=== PATIENT | male | born 1960 | race Caucasian/White ===

== ENCOUNTER 2023-05-26 15:04 | Outpatient (OUT) | payer OTHER, SELFPAY ==
[2023-05-26 17:14] LABS: Prostate Specific Antigen Dx <0.13 ng/mL (<=4.00)
== END 2023-05-26 15:05 | disposition home or self-care (01) ==
LOC: LAB 15:04
PROVIDERS: PCP Family Medicine; Visit Provider Urology
DX: C61 Malignant neoplasm of prostate (principal)
CPT/HCPCS: 36415; 84153

== ENCOUNTER 2023-11-16 13:59 | Outpatient (OUT) | payer OTHER, SELFPAY | END 2023-11-16 14:00 | disposition home or self-care (01) | LOC: PST 14:00 | PROVIDERS: PCP Family Medicine; Visit Provider Surgery | DX: Z86.010 Personal history of colon polyps (principal) ==

== ENCOUNTER 2023-11-24 08:18 | Day surgery (SDC) | payer OTHER, SELFPAY ==
--- OUTSIDE RECORDS SUMMARY | 2023-11-24 08:30 | XMS_ITS | CCD ---
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 Role Phone LETI BULLARD Primary Care Physician MD Harshad Jane Attending Provider [phone] MD Leti Bullard Primary Care Provider OFELIA TIRADO MD Attending Unavailable JUAN MIGUEL, DR LANDEROS Attending Unavailable JUAN MIGUEL, DR LANDEROS Admitting Unavailable JUAN MIGUEL, DR LANDEROS Primary Care Unavailable JUAN MIGUEL, DR LANDEROS Consulting Unavailable AUBRIE STAUFFER Admitting Unavailable LUEAUBRIE Consulting Unavailable AUBRIE STAUFFER M Attending Unavailable JUAN MIGUEL, DR LANDEROS Primary Care Unavailable MD Leti Bullard Primary Care Provider MD Leti Bullard Attending Provider [phone] LETI BULLARD Attending Unavailable [place] Leti WESTBROOK Primary Care Provider [phone] MD Leti Bullard Primary Care Provider [phone] MD Aubrie Stauffer Attending Provider [phone] Leti Bullard Primary Care Unavailable Leti Bullard Attending Unavailable Leti Bullard Admitting Unavailable Lue, Aubrie M Admitting Unavailable Lue, Aubrie M Attending Unavailable Leti Bullard Primary Care Unavailable Lue, Aubrie M. Admitting Unavailable Lue, Aubrie M. Attending Unavailable Lue, Aubrie M. Referring Unavailable Lue, Aubrie M. Referring Unavailable Lue, Aubrie M. Admitting Unavailable Lue, Aubrie M. Attending Unavailable Lue, Aubrie M. Attending Unavailable Lue, Aubrie M. Attending Aubrie Cast Attending Harshad Acuna Attending Aubrie Cast Attending Aubrie Cast Referring Aubrie Cast Admitting Aubrie Csat Attending Unavailable Medications Current Medications Medication Drug Class(es) Dates Sig (Normalized) Sig (Original) acetaminophen 650 mg oral tablet (3 sources) Start: 12-23-2022 take 650 mg by mouth every four hours as needed for pain, then take 4000 mg by mouth once daily as needed for pain acetaminophen 650 mg, Oral, q4hr, PRN Pain/Fever, Mild-moderate pain. Not to exceed 4000 mg acetaminophen per day, Refills(s) 0 Start Date: 12/23/22 Status: Ordered Celebrate Multivitamin (4 sources) Start: 12-02-2022 Celebrate Multivitamin 1 tab(s), Chewed, Daily, Prophylaxis Start Date: 12/02/22 Status: Ordered docusate sodium 100 mg oral capsule (2 sources) Start: 12-23-2022 take 1 capsule by mouth twice daily Colace 100 mg Cap 100 mg = 1 cap(s), Oral, BID, Hold for loose stools > 2/day, # 60 cap(s), Refills(s) 0, Pharmacy: [id number], 175.3, cm, 12/22/22 22:07:00 EDT, Height/Length Dosing, 80.9, kg, 12/22/22 22:07:00 EDT, Weight Dosing Start Date: 12/23/22 Status: Ordered Fish Oils (4 sources) Start: 12-02-2022 take 1 capsule by mouth once daily Fish Oil 1000 mg oral capsule 1,000 mg = 1 cap(s), Oral, Daily, Refills(s) 0, Prophylaxis Start Date: 12/02/22 Status: Ordered Multivitamin preparation (3 sources) Start: 09-15-2022 take 1 tablet by mouth once daily in the morning Multivitamin Active 1 TAB PO Every morning September 15, 2022 1:00am Start: 09-15-2022 take 1 tablet by sj th once daily in the morning Multivitamin Active 1 TAB PO Every morning September 15, 2022 12:00am niacin 100 mg oral tablet (7 sources) Nicotinic Acid Start: 12-02-2022 take 1 tablet by mouth once daily niacin 100 mg oral tablet 100 mg = 1 tab(s), Oral, Daily, Prophylaxis Start Date: 12/02/22 Status: Ordered Start: 09-15-2022 take 50 mg by mouth once daily in the morning Niacin Active 50 MG PO Every morning September 15, 2022 12:00am [place] 1-Agd-Emi-Fish Oil (Fish Oil) 1,000 mg (120 mg-180 mg) Capsule (3 sources) Start: 09-15-2022 take 2 capsules by mouth once daily in the morning [place] 7-Ipq-Tpw-Fish Oil (Fish Oil) 1,000 mg (120 mg-180 mg) Capsule Active 2 CAP PO Every morning September 15, 2022 1:00am Start: 09-15-2022 take 2 capsules by m outh once daily in the morning [place] 4-Jkc-Kaf-Fish Oil (Fish Oil) 1,000 mg (120 mg-180 mg) Capsule Active 2 CAP PO Every morning September 15, 2022 12:00am sod sulf-pot chloride-mag sulf 1.479-0.188- 0.225 gram tablet (1 source) Start: 10-20-2023 sod sulf-pot chloride-mag sulf 1.479-0.188- 0.225 gram tablet Indications: History of colon polyps Please see instructional sheet given by physicians office. 24 tablet 0 10/20/2023 Active tadalafil 20 mg oral tablet (7 sources) Phosphodiesterase 5 Inhibitor Start: 06-14-2023 take 1 tablet by mouth once daily as needed tadalafiL (CIALIS) 20 mg tablet Take 1 tablet (20 mg total) by mouth daily as needed for erectile dysfunction. 0 06/14/2023 Active Start: 06-04-2023 tadalafil 20 m g Tab 20 mg = 1 tab(s), Oral, As Directed, Take 1 tab by mouth 1-2 hours prior to sexual activity. Do NOT exceed 20 mg in 24 hours., # 30 tab(s), Refills(s) 3, Pharmacy: [id number], 175, cm, 02/26/23 8:38:00 EDT, Height/Length Dosing, 82.9, kg, ... Start Date: 06/04/23 Status: Ordered Start: 02-26-2023 tadalafil 10 m g Tab 10 mg = 1 tab(s), Oral, As Directed, PRN for erectile dysfunction, 1 tablet as needed 1-2hr prior to intercourse. Do not exceed 20mg per day, # 30 tab(s), Refills(s) 6, Pharmacy: [id number], 175, cm, 02/26/23 8:38:00 EDT, Height/Length Dosin... Start Date: 02/26/23 Status: Ordered Start: 12-30-2022 End: 12-26-2023 take 1 tablet by mouth once daily tadalafil 5 mg oral tablet 5 mg = 1 tab(s), Oral, Daily, X 90 day(s), # 90 tab(s), Refills(s) 3, Pharmacy: [facility], 175, cm, 12/30/22 10:12:00 EDT, Height/Length Dosing, 84, kg, 12/30/22 10:12:00 EDT, Weight Dosing Start Date: 12/31/22 Stop Date: 12/26/23 Status: Ordered tamsulosin hydrochloride 0.4 mg oral capsule (8 sources) alpha-Adrenergic Tai Start: 11-05-2021 End: 10-20-2023 take 0.4 mg by mouth once daily in the evening Tamsulosin Active 0.4 MG PO Every evening September 15, 2022 12:00am Problems Problem Classification Problem Date Documented Date Episodic/Chronic Blindness and vision defects (7 sources) 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 Cancer of prostate (12 sources) Malignant neoplasm of prostate; Translations: [Malignant tumor of prostate] Onset: 10-02-2022 Chronic Cancer of prostate (2 sources) Personal history of malignant neoplasm of prostate; Translations: [History of malignant neoplasm of prostate] Onset: 2023 Episodic Disorders of lipid metabolism (8 sources) Hyperlipidemia; Translations: [Hyperlipidemia, unspecified] Onset: 08-05-2022 01-31-2020 Chronic Genitourinary symptoms and ill-defined conditions (7 sources) Blood in urine 01-31-2020 Episodic Hyperplasia of prostate (12 sources) Benign prostatic hypertrophy with outflow obstruction; Translations: [Benign prostatic hyperplasia with lower urinary tract symptoms] Onset: 02-23-2022 Chronic Inflammatory conditions of male genital organs (7 sources) Prostatitis 01-31-2020 Episodic Other and unspecified benign neoplasm (1 source) History of polyp of colon; Translations: [Personal history of colonic polyps] 10-20-2023 Episodic Other diseases of kidney and ureters (1 source) Urinary tract obstruction; Translations: [Other obstructive and reflux uropathy] Onset: 02-23-2022 Episodic Other male genital disorders (2 sources) Secondary erectile dysfunction; Translations: [Erectile dysfunction following radical prostatectomy] Onset: 02-26-2023 Chronic Other male genital disorders (3 sources) Erectile dysfunction following radical prostatectomy 12-31-2022 Chronic Other nutritional; endocrine; and metabolic disorders (7 sources) Body mass index 25-29 - overweight 02-12-2020 Episodic Other screening for suspected conditions (not mental disorders or infectious disease) (10 sources) Raised prostate specific antigen; Translations: [Elevated prostate specific antigen [PSA]] Onset: 02-23-2022 Episodic Unclassified (1 source) Encounter for general adult medical examination without abnormal findings; Translations: [Encounter for general adult medical examination without abnormal findings] Onset: 07-31-2023 Results Test Name Value Interpretation Reference Range Facility [facility] 11-22-2023 Lab Reports [id number] Normal [facility] PSA Total (Not a Screen)on 0 11-19-2023 PSA Total (Not a Screen) < 0.008 Normal 0.000-4.00 0 [facility] Comment on above: Result Comment: Karmen nichols tumor marker results determined by assays using different manufacturers or methods may not be comparable. 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 PERFORMED BY: [place] [address] PATHOLOGIST HYPERBARIC TECHNOLOGIST TAHMINA BECERRA M.D. Performed By: #### P SATOTAL #### [address] Prostate specific Ag [Mass/v olume] in Serum or PlasmaOrdered By: Aubrie Stauffer on 11-19-2023 Prostate specific Ag [Mass/Vol] ng/mL 0.000-4.00 0 [facility] Comment on above: Serial tumor marker results determined by assays using different manufacturers or methods may not be comparable.[facility] joinery factory worker and method:[employer] DXI, CHEMILUMINESCENT IMMUNOASSAY. Alanine aminotransferase [En zymatic activity/volume] in Serum or PlasmaOrdered By: Leti Bullard on 07-31-2023 ALT [Catalytic activity/Vol] 12 U/L 7-52 [facility] Albumin [Mass/volume] in Ser um or Plasma by Bromocresol green (BCG) dye binding methoOrdered By: Leti Torresa on 07-31-2023 Albumin BCG dye [Mass/Vol] 4.2 g/dL 3.5-5.7 [facility] Alkaline phosphatase [Enzyma tic activity/volume] in Serum or PlasmaOrdered By: Leti Torresa on 07-31-2023 ALP [Catalytic activity/Vol] 55 U/L 34-104 [facility] Aspartate aminotransferase [ Enzymatic activity/volume] in Serum or PlasmaOrdered By: Leti Torresa on 07-31-2023 AST [Catalytic activity/Vol] 15 U/L 13-39 [facility] Basophils Auto (Bld) [#/Vol] Ordered By: Leti Torresa on 07-31-2023 Basophils (Bld) [#/Vol] 0.1 10*3/uL 0.0-0.2 [facility] Basophils/100 WBC Auto (Bld) Ordered By: Leti Torresa on 07-31-2023 Basophils/100 WBC (Bld) 1.2 % . [facility] Bilirubin.total [Mass/volume ] in Serum or PlasmaOrdered By: Leti Torresa on 07-31-2023 Bilirubin [Mass/Vol] 0.9 mg/dL 0.3-1.0 [facility] Calcium [Mass/volume] in Ser um or PlasmaOrdered By: Leti Torresa on 07-31-2023 Calcium [Mass/Vol] 9.5 mg/dL 8.6-10.3 [facility] Carbon dioxide, total [Moles /volume] in Serum or PlasmaOrdered By: Leti Bullard on 07-31-2023 CO2 [Moles/Vol] 32.7 mmol/L 21.0-31.0 [facility] Chloride [Moles/volume] in S leandra or PlasmaOrdered By: Leti Bullard on 07-31-2023 Chloride [Moles/Vol] 105 mmol/L 98-107 [facility] Cholesterol [Mass/volume] in Serum or PlasmaOrdered By: Leti Bullard on 07-31-2023 Cholesterol [Mass/Vol] 229 mg/dL 140-200 [facility] Comment on above: Chol less than 200 m g/dl low riskChol 201-239 mg/dl borderline riskChol 240 mg/dl and greater high risk Cholesterol in LDL Calc [Mas s/Vol]Ordered By: Leti Bullard on 07-31-2023 Cholesterol in LDL [Mass/Vol] 157 mg/dL 0-100 [facility] Comment on above: LDL ATP III CLASSIFI CATIONLDL less than 100 mg/dL OptimalLDL 100-129 mg/dL Near or above optimalLDL 130-159 mg/dL Borderline highLDL 160-189 mg/dL HighLDL greater than 189 mg/dL Very high Cholesterol in VLDL Calc [Ma ss/Vol]Ordered By: Leti Bullard on 07-31-2023 Cholesterol in VLDL [Mass/Vol] 20 mg/dL [facility] Complete Blood Count Auto Di ffon 07-31-2023 Basophils (Bld) [#/Vol] 0.1 10*3/uL Normal 0.0-0.2 [facility] Comment on above: Order Comment: FASTI NG Result Comment: PERF ORMED BY: [place] [address] PATHOLOGIST HYPERBARIC TECHNOLOGIST TAHMINA BECERRA M.D. Performed By: #### L IPID, CMP, CBC, PSATF #### [facility] [address] [place] [address] [place] Basophils/100 WBC (Bld) 1.2 % Normal . [facility] Comment on above: Order Comment: FASTI NG Performed By: #### L IPID, CMP, CBC, PSATF #### [facility] [address] [place] [address] [place] Eosinophils (Bld) [#/Vol] 0.3 10*3/uL Normal 0.0-0.45 [facility] Comment on above: Order Comment: FASTI NG Performed By: #### L IPID, CMP, CBC, PSATF #### [address] Eosinophils/100 WBC (Bld) 6.5 % Normal . [facility] Comment on above: Order Comment: FASTI NG Performed By: #### L IPID, CMP, CBC, PSATF #### [address] Erythrocyte distribution width (RBC) [Ratio] 13.9 % Normal 12.0-14.8 [facility] Comment on above: Order Comment: FASTI NG Performed By: #### L IPID, CMP, CBC, PSATF #### [address] Hematocrit (Bld) [Volume fraction] 41.3 % Normal 38.8-50.0 [facility] Comment on above: Order Comment: FASTI NG Performed By: #### L IPID, CMP, CBC, PSATF #### [address] Hemoglobin (Bld) [Mass/Vol] 13.8 g/dL Normal 13.0-17.0 [facility] Comment on above: Order Comment: FASTI NG Performed By: #### L IPID, CMP, CBC, PSATF #### [address] Lymphocytes (Bld) [#/Vol] 1.4 10*3/uL Normal 1.00-4.8 [facility] Comment on above: Order Comment: FASTI NG Performed By: #### L IPID, CMP, CBC, PSATF #### [address] Lymphocytes/100 WBC (Bld) 28.4 % Normal . [facility] Comment on above: Order Comment: FASTI NG Performed By: #### L IPID, CMP, CBC, PSATF #### [address] MCH (RBC) [Entitic mass] 30.4 pg Normal 27.5-35.2 [facility] Comment on above: Order Comment: FASTI NG Performed By: #### L IPID, CMP, CBC, PSATF #### [address] MCV (RBC) [Entitic vol] 90.7 fL Normal 83.5-101 [facility] Comment on above: Order Comment: FASTI NG Performed By: #### L IPID, CMP, CBC, PSATF #### [address] Mean Corpuscular HGB Conc 33.5 g/dL Normal 32.5-35.6 [facility] Comment on above: Order Comment: FASTI NG Performed By: #### L IPID, CMP, CBC, PSATF #### [address] Monocytes (Bld) [#/Vol] 0.4 10*3/uL Normal 0.0-0.8 [facility] Comment on above: Order Comment: FASTI NG Performed By: #### L IPID, CMP, CBC, PSATF #### [address] Monocytes/100 WBC (Bld) 7.8 % Normal . [facility] Comment on above: Order Comment: FASTI NG Performed By: #### L IPID, CMP, CBC, PSATF #### [address] Neutrophils (Bld) [#/Vol] 2.7 10*3/uL Normal 1.8-7.7 [facility] Comment on above: Order Comment: FASTI NG Performed By: #### L IPID, CMP, CBC, PSATF #### [address] Neutrophils/100 WBC (Bld) 56.1 % Normal . [facility] Comment on above: Order Comment: FASTI NG Performed By: #### L IPID, CMP, CBC, PSATF #### [address] NRBC% 0.0 /100{WBC} Normal 0-0.5 [facility] Comment on above: Order Comment: FASTI NG Performed By: #### L IPID, CMP, CBC, PSATF #### [facility] [address] [place] [address] Platelet mean volume (Bld) [Entitic vol] 7.4 fL Normal 6.6-10.1 [facility] Comment on above: Order Comment: FASTI NG Performed By: #### L IPID, CMP, CBC, PSATF #### [facility] [address] [place] [address] Platelets (Bld) [#/Vol] 259 10*3/uL Normal 150-450 [facility] Comment on above: Order Comment: FASTI NG Performed By: #### L IPID, CMP, CBC, PSATF #### [address] RBC (Bld) [#/Vol] 4.55 10*6/uL Normal 3.90-5.60 [facility] Comment on above: Order Comment: FASTI NG Performed By: #### L IPID, CMP, CBC, PSATF #### [address] WBC (Bld) [#/Vol] 4.8 10*3/uL Normal 4.1-10.5 [facility] Comment on above: Order Comment: FASTI NG Performed By: #### L IPID, CMP, CBC, PSATF #### [facility] [address] [place] [address] Comprehensive Metabolic Pane corby 07-31-2023 Albumin [Mass/Vol] 4.2 g/dL Normal 3.5-5.7 [facility] Comment on above: Order Comment: FASTI NG Performed By: #### L IPID, CMP, CBC, PSATF #### [facility] [address] [place] [address] Albumin/Globulin [Mass ratio] 1.8 {ratio} Normal [facility] Comment on above: Order Comment: FASTI NG Performed By: #### L IPID, CMP, CBC, PSATF #### [facility] [address] ALP [Catalytic activity/Vol] 55 U/L Normal 34-104 [facility] Comment on above: Order Comment: FASTI NG Performed By: #### L IPID, CMP, CBC, PSATF #### [facility] [address] ALT [Catalytic activity/Vol] 12 U/L Normal 7-52 [facility] Comment on above: Order Comment: FASTI NG Performed By: #### L IPID, CMP, CBC, PSATF #### [facility] [address] [place] [address] Anion gap [Moles/Vol] 6.7 mmol/L Normal 6.0-15.0 [facility] Comment on above: Order Comment: FASTI NG Performed By: #### L IPID, CMP, CBC, PSATF #### [address] AST [Catalytic activity/Vol] 15 U/L Normal 13-39 [facility] Comment on above: Order Comment: FASTI NG Performed By: #### L IPID, CMP, CBC, PSATF #### [address] Bilirubin [Mass/Vol] 0.9 mg/dL Normal 0.3-1.0 [facility] Comment on above: Order Comment: FASTI NG Performed By: #### L IPID, CMP, CBC, PSATF #### [facility] [address] [place] [address] Calcium [Mass/Vol] 9.5 mg/dL Normal 8.6-10.3 [facility] Comment on above: Order Comment: FASTI NG Performed By: #### L IPID, CMP, CBC, PSATF #### [facility] [address] [place] [address] Chloride [Moles/Vol] 105 mmol/L Normal 98-107 [facility] Comment on above: Order Comment: FASTI NG Performed By: #### L IPID, CMP, CBC, PSATF #### [facility] [address] CO2 [Moles/Vol] 32.7 mmol/L High 21.0-31.0 [facility] Comment on above: Order Comment: FASTI NG Performed By: #### L IPID, CMP, CBC, PSATF #### [facility] [address] Creatinine [Mass/Vol] 1.07 mg/dL Normal 0.70-1.30 [facility] Comment on above: Order Comment: FASTI NG Performed By: #### L IPID, CMP, CBC, PSATF #### [address] GFR/1.73 sq M.predicted MDRD (S/P/Bld) [Vol rate/Area] mL/min/{1.73_m2} [facility] Comment on above: Order Comment: FASTI NG Performed By: #### L IPID, CMP, CBC, PSATF #### [facility] [address] Globulin (S) [Mass/Vol] 2.4 g/dL [facility] Comment on above: Order Comment: FASTI NG Performed By: #### L IPID, CMP, CBC, PSATF #### [address] Glucose [Mass/Vol] 89 mg/dL Normal 70-100 [facility] Comment on above: Order Comment: FASTI NG Result Comment: [place] Glucose Reference Range is dependent on time and content of last meal. Glucose of more than 200 mg/dL in a nonstressed, ambulatory subject supports the diagnosis of Diabetes Mellitus. ADA recommended reference range Performed By: #### L IPID, CMP, CBC, PSATF #### [address] Potassium [Moles/Vol] 5.4 mmol/L High 3.5-5.1 [facility] Comment on above: Order Comment: FASTI NG Performed By: #### L IPID, CMP, CBC, PSATF #### [facility] [address] Protein [Mass/Vol] 6.6 g/dL Normal 6.4-8.9 [facility] Comment on above: Order Comment: FASTI NG Performed By: #### L IPID, CMP, CBC, PSATF #### [facility] [address] Sodium [Moles/Vol] 139 mmol/L Normal 136-145 [facility] Comment on above: Order Comment: FASTI NG Performed By: #### L IPID, CMP, CBC, PSATF #### [facility] [address] Urea nitrogen [Mass/Vol] 17 mg/dL Normal 7-25 [facility] Comment on above: Order Comment: FASTI NG Performed By: #### L IPID, CMP, CBC, PSATF #### [facility] [address] Creatinine [Mass/volume] in Serum or PlasmaOrdered By: Leti Bullard on 07-31-2023 Creatinine [Mass/Vol] 1.07 mg/dL 0.70-1.30 [facility] Eosinophils Auto (Bld) [#/Vo l]Ordered By: Leti Torresa on 07-31-2023 Eosinophils (Bld) [#/Vol] 0.3 10*3/uL 0.0-0.45 [facility] Eosinophils/100 WBC Auto (Bl d)Ordered By: Leti Descanso on 07-31-2023 Eosinophils/100 WBC (Bld) 6.5 % . [facility] Erythrocyte distribution wid th Auto (RBC) [Ratio]Ordered By: Leti Bullard on 07-31-2023 Erythrocyte distribution width (RBC) [Ratio] 13.9 % 12.0-14.8 [facility] Globulin Calc (S) [Mass/Vol] Ordered By: Leti Bullard on 07-31-2023 Globulin (S) [Mass/Vol] 2.4 g/dL [facility] Glucose [Mass/volume] in Ser um or PlasmaOrdered By: Leti Bullard on 07-31-2023 Glucose [Mass/Vol] 89 mg/dL 70-100 [facility] Comment on above: ADA recommended refe rence rangeRandom Glucose Reference Range is dependent on time and content of last meal. Glucose of more than 200 mg/dL in a nonstressed, ambulatory subject supports the diagnosis of Diabetes Mellitus. Hematocrit Auto (Bld) [Volum e fraction]Ordered By: Leti Bullard on 07-31-2023 Hematocrit (Bld) [Volume fraction] 41.3 % 38.8-50.0 [facility] Hemoglobin [Mass/volume] in BloodOrdered By: Leti Bullard on 07-31-2023 Hemoglobin (Bld) [Mass/Vol] 13.8 g/dL 13.0-17.0 [facility] Leukocytes [#/volume] correc matthieu for nucleated erythrocytes in Blood by Automated counOrdered By: Leti Bullard on 07-31-2023 WBC corrected for nucl RBC Auto (Bld) [#/Vol] 4.8 10*3/uL 4.1-10.5 [facility] Lipid Panelon 07-31-2023 Cholesterol [Mass/Vol] 229 mg/dL High 140-200 [facility] Comment on above: Order Comment: FASTI NG Result Comment: Chol less than 200 mg/dl low risk Chol 201-239 mg/dl borderline risk Chol 240 mg/dl and greater high risk Performed By: #### L IPID, CMP, CBC, PSATF #### [facility] [address] [place] [id number] [place] Cholesterol in HDL [Mass/Vol] 51 mg/dL Normal 23-92 [facility] Comment on above: Order Comment: FASTI NG Result Comment: HDL CHOL ATP-III CLASSIFICATION Cardiovascular Risk HDL > or equal to 60 mg/dL LOW HDL < 40 mg/dL HIGH Performed By: #### L IPID, CMP, CBC, PSATF #### [facility] [address] [place] [address] [facility] Cholesterol.total/Chol esterol in HDL [Mass ratio] 4.5 {ratio} Normal <5.0 [facility] Comment on above: Order Comment: FASTI NG Result Comment: PERF ORMED BY: [place] [address] PATHOLOGIST HYPERBARIC TECHNOLOGIST TAHMINA BECERRA M.D. Performed By: #### L IPID, CMP, CBC, PSATF #### [address] LDL Cholesterol,Calculated 157 mg/dL High 0-100 [facility] Comment on above: Order Comment: FASTI NG Result Comment: LDL ATP III CLASSIFICATION LDL less than 100 mg/dL Optimal LDL 100-129 mg/dL Near or above optimal LDL 130-159 mg/dL Borderline high LDL 160-189 mg/dL High LDL greater than 189 mg/dL Very high Performed By: #### L IPID, CMP, CBC, PSATF #### [address] Triglyceride w/Reflex 103 mg/dL Normal 0-149 [facility] Comment on above: Order Comment: FASTI NG Result Comment: TRIG ATP III CLASSIFICATION TRIG less than 150 mg/dL Normal TRIG 150-199 mg/dL Borderline high TRIG 200-500 mg/dL High TRIG greater than 500 mg/dL Very high Standard traceable to the Center for Disease Conrtrol and Prevention (CDC) test method. Performed By: #### L IPID, CMP, CBC, PSATF #### [address] VLDL CHOLESTEROL 20 mg/dL Normal [facility] Comment on above: Order Comment: FASTI NG Performed By: #### L IPID, CMP, CBC, PSATF #### [facility] [address] [place] [address] Lymphocytes Auto (Bld) [#/Vo l]Ordered By: Leti Bullard on 07-31-2023 Lymphocytes (Bld) [#/Vol] 1.4 10*3/uL 1.00-4.8 [facility] [facility] Lymphocytes/100 WBC Auto (Bl d)Ordered By: Leti Descanso on 07-31-2023 Lymphocytes/100 WBC (Bld) 28.4 % . [facility] MCH Auto (RBC) [Entitic mass ]Ordered By: Leti Bullard on 07-31-2023 MCH (RBC) [Entitic mass] 30.4 pg 27.5-35.2 [facility] MCHC Auto (RBC) [Mass/Vol]Or dered By: Leti Bullard on 07-31-2023 MCHC (RBC) [Mass/Vol] 33.5 g/dL 32.5-35.6 [facility] MCV Auto (RBC) [Entitic vol] Ordered By: Leti Bullard on 07-31-2023 MCV (RBC) [Entitic vol] 90.7 fL 83.5-101 [facility] Monocytes Auto (Bld) [#/Vol] Ordered By: Leti Bullard on 07-31-2023 Monocytes (Bld) [#/Vol] 0.4 10*3/uL 0.0-0.8 [facility] Monocytes/100 WBC Auto (Bld) Ordered By: Leti Bullard on 07-31-2023 Monocytes/100 WBC (Bld) 7.8 % . [facility] Neutrophils Auto (Bld) [#/Vo l]Ordered By: Leti Bullard on 07-31-2023 Neutrophils (Bld) [#/Vol] 2.7 10*3/uL 1.8-7.7 [facility] Neutrophils/100 WBC Auto (Bl d)Ordered By: Leti Bullard on 07-31-2023 Neutrophils/100 WBC (Bld) 56.1 % . [facility] No Panel InformationOrdered By: Leti Bullard on 07-31-2023 Estimated GFR (CKD-EPI) > 60.0 mL/Min [facility] Creatinine Clearance (Chem N/A [facility] Nucleated erythrocytes [Pres ence] in Blood by Automated countOrdered By: Leti Bullard on 07-31-2023 Nucleated RBC Auto Ql (Bld) 0.0 /100{WBC} 0-0.5 [facility] PSA Diagnostic (Total Free)o n 07-31-2023 Prostate Spec Ag, Free < 0.005 [facility] on above: Order Comment: FASTI NG Performed By: #### L IPID, CMP, CBC, PSATF #### [facility] [address] [place] [address] PSA Total (Not a Screen) < 0.008 Normal 0.000-4.00 0 [facility] Comment on above: Order Comment: FASTI NG Performed By: #### L IPID, CMP, CBC, PSATF #### [facility] [address] PSA,FREE% Not performed Normal [facility] Comment on above: Order Comment: FASTI NG Result Comment: PERF ORMED BY: [place] [address] PATHOLOGIST HYPERBARIC TECHNOLOGIST TAHMINA BECERRA M.D. Performed By: #### L IPID, CMP, CBC, PSATF #### [facility] [address] Platelet mean volume Auto (B ld) [Entitic vol]Ordered By: Leti Descanso on 07-31-2023 Platelet mean volume (Bld) [Entitic vol] 7.4 fL 6.6-10.1 [facility] Platelets Auto (Bld) [#/Vol] Ordered By: Leti Juan Miguel on 07-31-2023 Platelets (Bld) [#/Vol] 259 10*3/uL 150-450 [facility] Potassium [Moles/volume] in Serum or PlasmaOrdered By: Rugen Juan Miguel on 07-31-2023 Potassium [Moles/Vol] 5.4 mmol/L 3.5-5.1 [facility] Prostate Specific Ag Free [M ass/volume] in Serum or PlasmaOrdered By: Rugen Juan Miguel on 07-31-2023 Free PSA [Mass/Vol] < 0.005 ng/mL [facility] Prostate specific Ag [Mass/v olume] in Serum or PlasmaOrdered By: Rugen Descanso on 07-31-2023 Prostate specific Ag [Mass/Vol] ng/mL 0.000-4.00 0 [facility] Protein [Mass/volume] in Ser um or PlasmaOrdered By: Rugen Descanso on 07-31-2023 Protein [Mass/Vol] 6.6 g/dL 6.4-8.9 [facility] RBC Auto (Bld) [#/Vol]Ordere d By: Leti Bullard on 07-31-2023 RBC (Bld) [#/Vol] 4.55 10*6/uL 3.90-5.60 [facility] Serum or plasma albumin/glob ulin mass ratioOrdered By: Leti Bullard on 07-31-2023 Albumin/Globulin [Mass ratio] 1.8 {ratio} [facility] Serum or plasma anion gap de terminationOrdered By: Leti Bullard on 07-31-2023 Anion gap [Moles/Vol] 6.7 mmol/L 6.0-15.0 [facility] Serum or plasma free prostat e specific antigen (PSA)/total PSA ratioOrdered By: Leti Bullard on 07-31-2023 Free PSA/Total PSA [Mass fraction] TNP [facility] Comment on above: Test not performed Serum or plasma high density lipoprotein (HDL) cholesterol measurementOrdered By: Leti Bullard on 07-31-2023 Cholesterol in HDL [Mass/Vol] 51 mg/dL 23-92 [facility] Comment on above: HDL CHOL ATP-III CLA SSIFICATION Cardiovascular RiskHDL > or equal to 60 mg/dL LOWHDL < 40 mg/dL HIGH Serum or plasma total choles terol/high density lipoprotein (HDL) cholesterol mass ratOrdered By: Leti Bullard on 07-31-2023 Cholesterol.total/Chol esterol in HDL [Mass ratio] 4.5 {ratio} <5.0 [facility] Sodium [Moles/volume] in Ser um or PlasmaOrdered By: Leti Bullard on 07-31-2023 Sodium [Moles/Vol] 139 mmol/L 136-145 [facility] Triglyceride [Mass/volume] i n Serum or PlasmaOrdered By: Leti Bullard on 07-31-2023 Triglyceride [Mass/Vol] 103 mg/dL 0-149 [facility] Comment on above: TRIG ATP III CLASSIF ICATIONTRIG less than 150 mg/dL NormalTRIG 150-199 mg/dL Borderline highTRIG 200-500 mg/dL High TRIG greater than 500 mg/dL Very highStandard traceable to the Center for Disease Conrtrol and Prevention (CDC) test method. Urea nitrogen [Mass/volume] in Serum or PlasmaOrdered By: Leti Bullard on 07-31-2023 Urea nitrogen [Mass/Vol] 17 mg/dL 04-27 [facility] WBC Auto (Bld) [#/Vol]Ordere d By: Leti Bullard on 07-31-2023 WBC (Bld) [#/Vol] 4.8 10*3/uL 4.1-10.5 [facility] Patient Educationon 06-04-20 Patient Education Urology Erectile Dysfunction Erectile dysfunction (ED) is the inability to get or keep an erection in order to have sexual intercourse. ED is considered a symptom of an underlying disorder and is not considered a disease. ED may include: ? Inability to get an erection. ? Lack of enough hardness of the erection to allow penetration. ? Loss of erection before sex is finished. What are the causes? This condition may be caused by: ? Physical causes, such as: ? Artery problems. This may include heart disease, high blood pressure, atherosclerosis, and diabetes. ? Hormonal problems, such as low testosterone. ? Obesity. ? Nerve problems. This may include back or pelvic injuries, multiple sclerosis, Parkinson's disease, spinal cord injury, and stroke. ? Certain medicines, such as: ? Pain relievers. ? Antidepressants. ? Blood pressure medicines and water pills (diuretics). ? Cancer medicines. ? Antihistamines. ? Muscle relaxants. ? Lifestyle factors, such as: ? Use of drugs such as marijuana, cocaine, or opioids. ? Excessive use of alcohol. ? Smoking. ? Lack of physical activity or exercise. ? Psychological causes, such as: ? Anxiety or stress. ? Sadness or depression. ? Exhaustion. ? Fear about sexual performance. ? Guilt. What are the signs or symptoms? Symptoms of this condition include: ? Inability to get an erection. ? Lack of enough hardness of the erection to allow penetration. ? Loss of the erection before sex is finished. ? Sometimes having normal erections, but with frequent unsatisfactory episodes. ? Low sexual satisfaction in either partner due to erection problems. ? A curved penis occurring with erection. The curve may cause pain, or the penis may be too curved to allow for intercourse. ? Never having nighttime or morning erections. How is this diagnosed? This condition is often diagnosed by: ? Performing a physical exam to find other diseases or specific problems with the penis. ? Asking you detailed questions about the problem. ? Doing tests, such as: ? Blood tests to check for diabetes mellitus or high cholesterol, or to measure hormone levels. ? Other tests to check for underlying health conditions. ? An ultrasound exam to check for scarring. ? A test to check blood flow to the penis. ? Doing a sleep study at home to measure nighttime erections. How is this treated? This condition may be treated by: ? Medicines, such as: ? Medicine taken by mouth to help you achieve an erection (oral medicine). ? Hormone replacement therapy to replace low testosterone levels. ? Medicine that is injected into the penis. Your health care provider may instruct you how to give yourself these injections at home. ? Medicine that is delivered with a short applicator tube. The tube is inserted into the opening at the tip of the penis, which is the opening of the urethra. A tiny pellet of medicine is put in the urethra. The pellet dissolves and enhances erectile function. This is also called MUSE (medicated urethral system for erections) therapy. ? Vacuum pump. This is a pump with a ring on it. The pump and ring are placed on the penis and used to create pressure that helps the penis become erect. ? Penile implant surgery. In this procedure, you may receive: ? An inflatable implant. This consists of cylinders, a pump, and a reservoir. The cylinders can be inflated with a fluid that helps to create an erection, and they can be deflated after intercourse. ? A semi-rigid implant. This consists of two silicone rubber rods. The rods provide some rigidity. They are also flexible, so the penis can both curve downward in its normal position and become straight for sexual intercourse. ? Blood vessel surgery to improve blood flow to the penis. During this procedure, a blood vessel from a different part of the body is placed into the penis to allow blood to flow around (bypass) damaged or blocked blood vessels. ? Lifestyle changes, such as exercising more, losing weight, and quitting smoking. Follow these instructions at home: Medicines ? Take lmyd-bef-cjkbqht and prescription medicines only as told by your health care provider. Do not increase the dosage without first discussing it with your health care provider. ? If you are using self-injections, do injections as directed by your health care provider. Make sure you avoid any veins that are on the surface of the penis. After giving an injection, apply pressure to the injection site for 5 minutes. ? Talk to your health care provider about how to prevent headaches while taking ED medicines. These medicines may cause a sudden headache due to the increase in blood flow in your body. General instructions ? Exercise regularly, as directed by your health care provider. Work with your health care provider to lose weight, if needed. ? Do not use any products that contain nicotine or tobacco. These products include cig (more content not included)... Normal [facility] Screenson 06-04-2023 Screens [id number]:127 Normal [facility] Urology Office/Clinic Noteon 06-04-2023 Urology Office/Clinic Note Chief Complaint 3 month follow up HPI Staff Pt is here today for 3 month follow up w/ PSA. Previous DX: ED, elevated PSA, hematuria, prostate cancer, prostatitis. S/P Robot assisted laparoscopic radical prostatectomy done 12/22/22. Fusion biopsy done 09/22/22. TRUS done 01/17/19. IPSS 0(1). LULA 1 (0). Started Cialis 10 mg prn and NEVILLE usage for penile rehab at prior OV. Was already taking Cialis 5 mg qd for penile rehab. PSA: 08/17/20 - 3.1 08/01/22 - 7.8 & 11.3% 08/18/22 - 9.2 & 13% 02/09/23 - <0.13 (lowest level Jackson can report) 05/26/23 - <0.13 current Dysuria: denies pain or burning Incomplete bladder emptying: denies Hematuria: denies visible blood Frequency: denies Urgency: denies Nocturia: denies Stream: denies hesitancy, denies weak stream Leaking: denies Post void dripping: denies Wearing pads/ Depends: denies Urge incontinence: denies Stress incontinence: denies Incontinence without Sensory Awareness: denies Abdominal pain: denies Flank pain: denies Sexual complaints: denies History of Present Illness Tests reviewed: reviewed UA, PSA. I have reviewed the previous health record information and history for this patient from Dr. Stauffer. I have reviewed and verified the staff HPI to be accurate for this encounter. There have been no associated fever, chills, flank pain, or blood in the urine. Denies any urinary infections since last encounter. Review of Systems PHQ Score Initial Depression Screen Score: 0 ROS - Provider Constitutional: denies weight loss, denies hot flashes. Eyes: denies eye problems. Gastrointestinal: denies nausea, denies vomiting. Cardiovascular: denies chest pain or angina. Integumentary: no dryness Musculoskeletal: denies musculoskeletal symptoms. ENMT: denies otolaryngeal symptoms. Respiratory: no shortness of breath. Heme/Lymph: denies easy bleeding tendency, denies easy bruising tendency. Psychiatric: no confusion, no anxiety. Genitourinary: See HPI. Physical Exam Vitals & Measurements T: 36.2 ?C(Temporal Artery) HR: 65(Peripheral) BP: 138/79 WT: 82.9 kg WT: 182.38 lb General Appearance: alert, no distress, well nourished, well developed male. Genitourinary: Flank Pain: none. Bladder: nonpalpable. Assessment/Plan 63 yo male diagnosed with low risk prostate cancer, cT1c, grade group 1, PSA 0.13, diagnosed 09/02/2022 on MRI fusion TP biopsy by PRW. He elected to undergo definitive treatment given progression on active surveillance s/p RALP 12/22/22- pT2 Nx Pt here with his today. 1. History of prostate cancer (Z85.46: Personal history of malignant neoplasm of prostate) PSA: 08/17/20 - 3.1 08/01/22 - 7.8 & 11.3% 08/18/22 - 9.2 & 13% 02/09/23 - <0.13 (lowest level Adi can report) 05/26/23 - <0.13 ([facility]) MRI prostate 09/02/22 - Posterior left PI-RADS 4 measuring 1 cm. Posterior right PI-RADS 4 measuring 1 cm. 79 mL volume. No LAD MRI fusion TP bx by Dr. Jane 09/22/22 - [place] 6 (3+3), GG1, 29% involvement of tissue. The core amount was not provided but at least +3/10 cores (Right base, right anterior medial, left anterior lateral. MECHE neg/no prostatic tissue) S/P RALP 12/22/22 - pT2 Nx prostate adenocarcinoma, grade group 1, <5% bilateral, margins negative, no adverse features. No sample provided for UA today. IPSS 0 (1). PSA remains low and stable. Will cont to monitor. Recommended different lab that reports lower values. Very minimal leakage, rare. Doing well with kegels. Overall very happy with results Follow up 6 mos with PSA or sooner if needed. Pt understands and agrees with plan. -Cont kegels. Timed voiding. 2. Erectile dysfunction after radical prostatectomy (N52.31: Erectile dysfunction following radical prostatectomy) LULA 1 (0). Started Cialis 10 mg prn and NEVILLE usage for penile rehab at prior OV. Was already taking Cialis 5 mg qPM for penile rehab. Using NEVILLE 2x/day. Some improvement with Cialis. On demand dose helped a little, also using penile ring. Next step would be penile injections. Offered faster acting Viagra, pt declined at this time. Will try higher dose of Cialis. -Start Cialis 20 mg prn, do not take with daily 5 mg, take 20 mg instead when he knows he is going to be active. Pt knows not to exceed 20 mg in 24 hours. Rx sent to [facility]. I spent 30 minutes today with the patient: reviewing tests in preparation to see and discuss them with the patient, documenting clinical information in the electronic health records, and care coordination. Time was spent performing a medical exam and evaluation, counseling and educating the patient/family, and ordering medications, tests in caring for the patient. Follow-up With When Contact Information Aubrie Stauffer MD, URL, URO Additional Instructions: 6 mos with PSA Patient Education Erectile Dysfunction IXiao, personally scribed for Dr. Stauffer on 06/04/2023 08:34:03. 08:3 (more content not included)... Normal [facility] Comment on above: Result Comment: Elec tronically Signed By: Aubrie Stauffer MD\.br\Date and Time Signed: 06/04/23 08:39 EDT\.br\Electronically Co-Signed By: Xiao Patiño\.br\Date and Time Co-Signed: 06/04/23 08:34 EDT Lab Reportson 05-27-2023 Lab Reports [id number]:127 Normal [facility] Lab Reports [id number]:127 Normal [facility] Screenson 03-02-2023 Screens [id number]:127 Normal [facility] Screens [id number]:127 Normal [facility] Patient Educationon 02-27-20 Patient Education Oncology Prostate Cancer The prostate is a small gland that produces fluid that makes up semen (seminal fluid). It is located below the bladder in men, in front of the rectum. Prostate cancer is the abnormal growth of cells in the prostate gland. What are the causes? The exact cause of this condition is not known. What increases the risk? You are more likely to develop this condition if: ? You are 65 years of age or older. ? You have a family history of prostate cancer. ? You have a family history of breast and ovarian cancer. ? You have genes that are passed from parent to child (inherited), such as BRCA1 and BRCA2. ? You have Bryant syndrome. men and men of descent are diagnosed with prostate cancer at higher rates than other men. The reasons for this are not well understood and are likely due to a combination of genetic and environmental factors. What are the signs or symptoms? Symptoms of this condition include: ? Problems with urination. This may include: ? A weak or interrupted flow of urine. ? Trouble starting or stopping urination. ? Trouble emptying the bladder all the way. ? The need to urinate more often, especially at night. ? Blood in urine or semen. ? Persistent pain or discomfort in the lower back, lower abdomen, or hips. ? Trouble getting an erection. ? Weakness or numbness in the legs or feet. How is this diagnosed? This condition can be diagnosed with: ? A digital rectal exam. For this exam, a health care provider inserts a gloved finger into the rectum to feel the prostate gland. ? A blood test called a prostate-specific antigen (PSA) test. ? A procedure in which a sample of tissue is taken from the prostate and checked under a microscope (prostate biopsy). ? An imaging test called transrectal ultrasonography. Once the condition is diagnosed, tests will be done to determine how far the cancer has spread. This is called staging the cancer. Staging may involve imaging tests, such as a bone scan, CT scan, PET scan, or MRI. Stages of prostate cancer The stages of prostate cancer are as follows: ? Stage 1 (I). At this stage, the cancer is found in the prostate only. The cancer is not visible on imaging tests, and it is usually found by accident, such as during prostate surgery. ? Stage 2 (II). At this stage, the cancer is more advanced than it is in stage 1, but the cancer has not spread outside the prostate. ? Stage 3 (III). At this stage, the cancer has spread beyond the outer layer of the prostate to nearby tissues. The cancer may be found in the seminal vesicles, which are near the bladder and the prostate. ? Stage 4 (IV). At this stage, the cancer has spread to other parts of the body, such as the lymph nodes, bones, bladder, rectum, liver, or lungs. Prostate cancer grading Prostate cancer is also graded according to how the cancer cells look under a microscope. This is called the [place]field score and the total score can range from 6?10, indicating how likely it is that the cancer will spread (metastasize) to other parts of the body. The higher the score, the greater the likelihood that the cancer will spread. ? Evin 6 or lower: This indicates that the cancer cells look similar to normal prostate cells (well differentiated). ? Evin 7: This indicates that the cancer cells look somewhat similar to normal prostate cells (moderately differentiated). ? Westfield 8, 9, or 10: This indicates that the cancer cells look very different than normal prostate cells (poorly differentiated). How is this treated? Treatment for this condition depends on several factors, including the stage of the cancer, your age, personal preferences, and your overall health. Talk with your health care provider about treatment options that are recommended for you. Common treatments include: ? Observation for early stage prostate cancer (active surveillance). This involves having exams, blood tests, and in some cases, more biopsies. For some men, this is the only treatment needed. ? Surgery. Types of surgeries include: ? Open surgery (radical prostatectomy). In this surgery, a larger incision is made to remove the prostate. ? A laparoscopic radical prostatectomy. This is a surgery to remove the prostate and lymph nodes through several small incisions. It is often referred to as a minimally invasive surgery. ? A robotic radical prostatectomy. This is laparoscopic surgery to remove the prostate and lymph nodes with the help of robotic arms that are controlled by the surgeon. ? Cryoablation. This is surgery to freeze and destroy cancer cells. ? Radiation treatment. Types of radiation treatment include: ? External beam radiation. This type aims beams of radiation from outside the body at the prostate to destroy cancerous cells. ? Brachytherapy. This type uses radioactive needles, seeds, wires, or tubes that are implanted into the prostate gland. Like external be (more content not included)... Normal [facility] Urology Office/Clinic Noteon 02-26-2023 Urology Office/Clinic Note Chief Complaint Pt is here for 6 week follow up w/ PSA HPI Staff Ashok is a 62 y/o male here for a 6 week f/u w/PSA. Current PSA 02/09/2023 - <0.13. Previous PSA 08/17/20 - 3.1, 08/01/22 - 7.8 & 11.3%, 08/18/22 - 9.2 & 13% low risk prostate cancer, cT1c, grade group 1, iPSA 9.2 diagnosed 09/02/2022 [place] 6 (3+3), GG1, 29% involvement of tissue. MRI prostate 09/02/22 - posterior left PI-RADS 4 measuring 1 cm. Posterior right PI-RADS 4 measuring 1 cm. 79 mL volume. No LAD S/P RALP on 12/22/2022 Dysuria: denies Incomplete bladder emptying: denies Hematuria: denies Frequency: yes Urgency: denies Nocturia: 1-2x a night Stream: steady stream Leaking: denies Post void dripping: denies Wearing pads/ Depends: yes wears pads for safety Urge incontinence: denies Stress incontinence: yes w/ walking at night mildly Incontinence without Sensory Awareness: denies Abdominal pain: denies Flank pain: denies Sexual complaints: _ History of Present Illness Tests reviewed: reviewed UA, PSA I have reviewed the previous health record information and history for this patient from Dr. Stauffer. I have reviewed and verified the staff HPI to be accurate for this encounter. There have been no associated fever, chills, flank pain, or blood in the urine. Denies any urinary infections since last encounter. Review of Systems PHQ Score Initial Depression Screen Score: 0 ROS - Provider Constitutional: denies weight loss, denies hot flashes. Eyes: denies eye problems. Gastrointestinal: denies nausea, denies vomiting. Cardiovascular: denies chest pain or angina. Integumentary: no dryness Musculoskeletal: denies musculoskeletal symptoms. ENMT: denies otolaryngeal symptoms. Respiratory: no shortness of breath. Heme/Lymph: denies easy bleeding tendency, denies easy bruising tendency. Psychiatric: no confusion, no anxiety. Genitourinary: see HPI Physical Exam Vitals & Measurements HR: 72(Peripheral) BP: 130/85 HT: 69 in HT: 175 cm WT: 84 kg WT: 184.8 lb BMI: 27.43 General Appearance: alert, no distress, well nourished, well developed male. Genitourinary: Flank Pain: none. Bladder: nonpalpable. Assessment/Plan 62 yo male diagnosed with low risk prostate cancer, cT1c, grade group 1, PSA 0.13, diagnosed 09/02/2022 on MRI fusion TP biopsy by PRW. He elected to undergo definitive treatment given progression on active surveillance. IPSS 1. LULA 0. 1. Prostate cancer (C61: Malignant neoplasm of prostate) PSA: 08/17/20 - 3.1 08/01/22 - 7.8 & 11.3% 08/18/22 - 9.2 & 13% 02/09/23 - <0.13 (lowest level Adi can report) MRI prostate 09/02/22 - posterior left PI-RADS 4 measuring 1 cm. Posterior right PI-RADS 4 measuring 1 cm. 79 mL volume. No LAD S/p MRI fusion transperineal biopsy 09/22/[address] Jane path report shows [place] 6 (3+3), GG1, 29% involvement of tissue. The core amount was not provided but at least +3/10 cores (Right base, right anterior medial, left anterior lateral. MECHE neg/no prostatic tissue) S/P RALP on 12/22/2022 pT2 Nx prostate adenocarcinoma, grade group 1, <5% bilateral, margins negative, no adverse features. Dry during the day and with activity. Only minimal drip later in the day/evening, and when cold. Doing kegels PSA undetectable -Will continue Tadalafil 5mg qd for penile rehab -Pt to continue Kegels -Timed voiding -Will f/u in 3 months w/ PSA ED (erectile dysfunction) (N52.9: Male erectile dysfunction, unspecified) LULA 1 Having some engorgement, but not firm enough for penetration yet. -Pt to begin Cialis 10mg prn. Pt to take 1-2 hr prior to intercourse, no more than 20mg per day. -pt to start penile Vacuum Device for penile rehab; thoroughly educated pt on risks/benefits of NEVILLE, medication and various tx options in future if needed Follow-up With When Contact Information Eh WESTBROOK, Aubrie Tripathi, URL, URO In 3 months [address] [place] [address]- [phone] Additional Instructions: w/ PSA Patient Education Prostate Cancer I, Dacia Chávez , personally scribed for Dr. Stauffer on 02/26/2023 09:27:55. . Documentation recorded by the scribe, Dacia Chávez, accurately reflects the services(s) I performed and decisions made by me. Authenticated by Dr. Stauffer on 02/26/2023 09:34:09. Problem List/Past Medical History Ongoing BMI 27.0-27.9,adult Color blind ED (erectile dysfunction) Elevated PSA Hematuria Prostate cancer Prostatitis Historical Hyperlipidemia Procedure/Surgical History Robot assisted laparoscopic radical prostatectomy (12/22/2022), MRI-US fusion guided transperineal biopsy of prostate (09/22/2022), TRUS (transrectal ultrasound) guided cryoablation of prostate (01/17/2019), TRUS (transrectal ultrasound) guided cryoablation of prostate (08/16/2018), Cystoscopy (07/21/2011). Medications acetaminophen, 650 mg, Oral, q4hr, PRN Celebrate Multivitamin, 1 tab(s), Chewed, Daily Colace (more content not included)... [facility] Comment on above: Result Comment: Elec tronically Signed By: Eh WESTBROOK, Aubrie Tripathi\.br\Date and Time Signed: 02/26/23 09:34 EDT\.br\Electronically Co-Signed By: Dacia Chávez\.br\Date and Time Co-Signed: 02/26/23 09:28 EDT Lab Reportson 02-20-2023 Lab Reports [id number]:[id number] [facility] Provider Letteron 02-02-2023 Provider Letter (Inserted Image. Orin ble to display) February 02, 2023 [address] [place] [address] ASHOK DE LEON 1960 To Whom It May Concern, Please excuse above patient from work. Date of Illness: From: 12/22/2022 To: 02/16/2023 May Return to Work On: 02/17/2023 Restrictions: _ Comments: _ Sincerely, Dr. Aubrie Stauffer MD [facility] [address] [facility], [place] [address] [facility] Coding Summary.on 01-02-2023 Coding Summary. CD:[id number] Ww+PGh lYWQ+LB6JOIFfQ95bpWYjcW6wX 0NMTElOSywgQVBQTElOSyIgbmF lTR0lsWOzKOHu IC8+TD0gZXErSxxwiANgx6O2uZ X8G88ski3eNKpjeIM9LXLzGlJa qnwyb5ubzEz7VXyuGlyhExOk BQKgmP54UUI9nK73Dk86kHDewI Gqx7bowRc8QhViTQUqTMY2sFdl ENxrm2UoSALvV13cyGKmc6O4 IYCvnVahtKQaUjLcgPD6zU4dES kvozhum2itfqqdIij1it79kXWr n1R4rEG6P4ItrzP8IAVqoZKm IrnipBTYjM8nilfoq4enfckmJp BeVPRxPGp3THb3RDYzwZanNeQs AK57OYW0QLErxlAvW4RaZAXc mFixWlT2a0U3Bw9GW3LSGnerP6 VNTUFSWTwvdGQ+BL86pb00H6Eb RinzZbr7GXKkZNO7hQK9oS8c GJAxQOacg4J0iPK0E3WpwyCxyq 0ij6jmDIZyARjaZ93lyMMqf8Y9 DHRyeHY5CHGrqAwfGeNwhX18 Oyc+JRXtoTrxt8ZwBzqfv8nvz6 rxlTe7XzntNULuppTeqVrwILP4 d3AkLw5dSKOqqHV6bIQ1fU9v ZdIvUqN1CDdpW213LiHagBBfHp fyO27oP4NfvRG+IJKjBvr6NPWi vLiuCT1pB6YuCNPblvtjcYWd nUaaAS6rRXNcsueaDCAqnJ7eVE AcP7g2LdVcHkN2PMaqG5QmRXUa jkqkZq07qC2tEcWzBrG3QHxv E7LbxvV9MYEhjLDiBVrfBTB7T2 9mm8J7QFJiZMAwLGU1tBE3fR6f bGlnbjogbGVmdDsgdmVydGlj CIvoEAzbI544SHEkfLyqYhBlQH luZyBEYXRlOiAgMDQvMDEvMjAy MzwvdGQ+UVYjYNR2cKozJVHw hNHsYQkpWd3uqFbemRpdAE9yUQ OennyySIIuiI7dNOUcvZJnrGlh IP5wCFOqsnxpw101GkFmLMM8 XOZasUYnU2SalF2lQjDaXZLtDP FiK8JwrWZlBMngG849IMjjEeO6 MCXbxmBiZ8GvIOWpmQziKsI8 e3B1Hw1Jv2WwamhrQ5LygICgEu UvYaoeLRl0T7VaXeuhnUB+PC90 QBNyZW77REz9PKN9kUwnOSgn IDAwU4XojL3lQnBkTAUpSOCtPj c+PHRhYmxlIHdpZHRoPScxMDAl ZzFpcFwzPY2iRf7vXBDuVDYp yKbxtQNwLsDrz5kcQICcUKvdLL 1saWexY0QvlAK0OXQmp1f5Sw73 W86iX0HnqWW+AUAahBE5tUY8 rV9eSuDvMkO6GVylJ951RkAdzH HuSymvz2hed3vgwIw4WxN0STBi isRjeXlpHLS2h8RjAb80O37g IHdpZHRoPSIxNSUiIHZhbGlnbj 9llK7cGj0+TYDonVT6mPA1uH7h XbOdUuQ3MTkdX283DlEmfFLs Pbkbg8cma2vzuPt8NwRxYWFtzd MdnPvbRFJ8n4HhKe78M8IiuKdm c8JyFir2ev82oVEvd0A6aFI8 Y4FtCJKvhpilcVFpuHmqSZ1rVL BxmujqVGGogK1dTNTaN0y7WpJk EgM0CDoaV3JzneY6LSHxrAOo AYIdvIQUlW3gkkjsd9bxgqgyHd RrJJHmDZt8RVr8CUYyfDzxGjBg NXU1UgI6RAS3yRLcnP0iwEhn umpzgZ2ePnp+UUY0oZLvzDTHLC 1lOjwvdGQ+SWJiYCE1eVgfHGww SGOdlF5cGCKjQ9d8AvRmRqX2 FGlyR1AvqdP2WMDajKUfNZUaxZ LFjV6zygqds3gwadewZjOpPUEs AIk3IYw2BPQdzHjhJbZaJRP1 WjT0AYW0tCMmdG5gzRhklzyqnT 9wOyc+MjczpDkzIDW0JNw2S1Ni Jau5MDTfbPbnHP4onUAkRYjf Zi3efNpdwWkeBW2rXDYggycke7 91FkZba7xyWQAdjDUrIGwzPIH8 G98it6O0LNDiATCqDNX2xNS4 cO8yxMdscdomrGTlgXxuumRrdY psMWewFFkzZ718ASHbiGxvNkQa OEv9L2GqHvp8KYRppNzzTH6s dSPhFDfkFm0htOvcpIuoKK6cXX Rlnwrdy878WcHsi6agZHGnpEKs IEyeSPZ2A18qc6T9ZMTtJKAv UCM2bHV7gH4poQbretasaNNjwX qzrtJvyXlgTAzjGNyrM160EZFh kVclPiUwmJj2V4JrCjc3RVLw sStiSP4tuYHxBPdoBz3dlDbsoY ghVV0gNZJuuincs595BoRqk3cr SREfeNRlXYzbKMO5X03wl6I9 MVDsXSUhHMV2bTP9pP4stBefdy ogbGVmdDsgdmVydGljYWwtYWxp Q367CCSuqPpaUiByoQfpvmAz MYimEWc7T5NwRhqzlKM+PC90YW TfSE69gBGwiIKkg3uesCc5HrXj NAMoDWM6xViiHWgey9MrOHAa P26mwBMdp4L4BMLfkHzyoRHkGg KixPD0mK6dSMooevkuy6khyjhb Oxrrd7yegp78lP37W49uPNym DJFfVEWxHOWeTVJqvBllxj7zlE 9wIi8+SZMgeSP7sVK7vD2cPFQy OmJ2DQbrR527VzWwbQFxIqvz s4xqp0xlxZp7OpU0HTRvllOzuP lbBFJ2j9CkZk33I99lIOyuREEt MVVkGBAtOYTnwLonlv5ptL7b Ii8+AYOndJD8tOC7cA6nYzVzWw O1SXwiS942ZgOiuCQzKwpwD49u A3XbmPF+PTPnQki3VNBwdNew UC5xzLIlFPbbWk6iKCX4HbMnBs FyMSlnJ4UkGFLvomwnkrfuvCP3 GQPyOWZppR13Fs2ouPpbYKLb xZIZhQ3sbzkha9pegkzuNxFaXN XcEEy4TQj1XFAilDoaVkQfKUX6 FnK1IDT1gUWkgQ4siYsofsht eW5pE7ScILGnnpqcRl80dV5gYp OoPcZ2MHakRhz+QkVSQkVSSUNL ELMIQtVHTgUQRD83WJ31vIYw d2N7tOT8V7WwLPAwaffxaajjgL S5WUDbEXMzfL02wWGyQCagKc9m l1A2r600LQPiZTOggG46Fa5l tUbbKLRlcVXQpV4ypquod2pcfw raDaOtJGOjNIg5IXv9BQTveVfy QtPaTVD2WrV5VWG3uFPdaI7f vCvdkxjyrJ8uJvp+MDgvMzEvMT r9ZEdjcJY+PMZcXLD5dJfhWLcp CPKvoT2vITEaV1n4GsChFvJ9 QQqiL1OlOMZjikspOc10lL1mPy ItXwZ3ANygA2ZckfS5LLSlxOSc ZVutUBW8N76qx6N0ZASkBJVr OAK5uZJ3jO7ioQbixvfqpFKrzK cfyqFqvAalDOcxPYhlV976ZQSp pBxmZmQoSWknXVZcGK49AA58 yUAqy6M4rLX5W6SwFKNvepanct evjSE2QFIqGPBfmU91vAEnVYcy Wm9at0Z4f851ZYNkEQXrkI50 Az5dlZrqWAVpbVMBaR1uboqjm4 seuncwTkAlERWrGNw2RDd5RBQy wZmjRxGpUCX2IvV0HSK2yQId tO0ptQviurejgM8wAjb+TWFsZT wvdGQ+BSVnQEU4xWzkFHcoQJUv mN1hTLChY5w1UlJaXzC3UEtq S7ZlTEIynqeaIi87cH4ePzVwMo L3PShkX5OqimF9PGIwjYKgYAom JLP4K64dc2O4UXIaIPHbZVL2 xXJ4kG7csPwsdjkfcNUajLnszs UcsFgrYPowPBjeL584PYFlxHqm Vi66sLKkyUzcyjN2F3IkAnkv dHI+XF72CBRvUT71jPSxpNXeo9 vtiJs4NfUbJVHpCFH0bJpcHMno n5UgWDFxI62mbKEqc1R2AQPs cRzmdAWlCdScuTD1oW4bHHeelh hbl4iobkthKgwjc7zsvg37hE83 R33lQTjxSKNdYPAgNCXvAXKe fChhxk3svV0rSq2+MMWinVA5yA Q1jZ6qSzWnYfT6RHdxY353BwSu pDUqSxibv9ecs5ihaSi0PqRu MOSostZdcPcwXUC4k0BfEv43E4 9sIHdpZHRoPSIyMCUiIHZhbGln nr3heE5eBb7+JD0ti4wdoz42 dK91tEP+VDIqGXB3xAksJSxiKQ NlrI5jRBpnVbD9YKUcYwFmvX04 bXPhGSsvFf7gpAjbiEawZU8r UYVpxybeb952BfGzc6riOOOjlG CySYhsGSN9Q07pc6B3GQMyWAMn BEM4sZK8aV6ehMvwmwnzwGGr hCvscaRpxLgxEHvuKUwbW976BV ZlzDalWaKhfIAeR1inaaDYUJ7q OjwvdGQ+XXKjILB7oMstWArq QMNpwF7yEOSjF0c3YjRzXsR4IX ugS6XgfsI5VXWilHImIQDtkLCI qR7slcige3vyiensLpRkDQNz TDr0EUx8SYZffQdiTtTiYUD7Fb Q6NBC2cMCvkP0tcAioqhkxdM7e Oyc+RklOOjwvdGQ+PHRkIHN0 bFnoTQxzIXBpgW5jANQnI2d1Bt MdSlN6DZkbM5TexdM9UTNvyLIw SSCokHUQpK2wferrf2lxmyco DbLrDIWiSHp4POc0OZVxrTnbQd HnGOS9BfL8UYM7nDFurH2koHxr srzumW1tSbz+TVJOOjwvdGQ+ GYSqFHF1cMsdHVgiVTQkwD6pGW ZfT4m6OxOjGnE4QOxmM5KwgvT0 XEDnuGIhNPVgkGPZiD1pxbxc o0rjybqqVtRdDPKkYLs0VFp4PN TrsItpVlTkVPS0WoG8RIW8fOAh eP2igFcnogxgoN6eKuh+UGF5 EHJ4WH32SL61M1VmBuxclQZwkG U+PHRhYmxlIHdpZHRoPScxMDAl JkNoeEwkFA7oKq7iAQPlYSDp bGxhcHNl (more content not included)... Normal [facility] Coding Summary.on 01-01-2023 Coding Summary. CD:[id number] Ww+PGh lYWQ+VR6CEGIkB36avCPltN3pI 0NMTElOSywgQVBQTElOSyIgbmF xVK3meNFpFLDm IC8+IK9dSWIrNhydzSRvt3B5nL P5A78hwz1mZQattLH2ISRlGzTl uygej2qdwLt7KAftLjbcKvEu MPAsjL50HNF4uG41Fb00uZFpqI Ean2zvlPa5DmNfWZFyJDE9cAvp YIfjk5AfURAiI68moUVcs8Z5 RWNopLxraVBoIjNxmHK9aQ1eUH hrbyeav3pprabuEhf2xl25lOXe n2R4jLJ1X7DrnoW8BEFvwUKo HkhlcVZYlV9bqlmzp1qwdolqMb RmYYXjDZi0DIl7NVQzgRfpEdJm JL98FCW8HBKctpFqJ2TqFKHm rLucYrD3c8W4Fm2KO1KIVdhtP3 VNTUFSWTwvdGQ+QS22nb59R0Rr XlhuSwu6TFQhHKP3zHE1oU0f GYSrFXdsu1D5dCL6V2WknwWvtv 3qs4iqGYMoFQilB95wcAJrp1H1 DGGqiQZ9QUScqZntIuPrmN92 Oyc+GKJwgShpc1JaTyxkd8xkg2 puoPp6MlbvWCKihpVueOdfAWE0 k9YmUd6jNSFucWT4eRN1sN7o SbYnGvG3YVqkX882RbUolFExLo vtT77vK9MikMO+FKOrPvp9TCAz xBnyXR3jL7YkLJTrqfeheLBk dPveXY5pZYMxovhoCKBhzR4sAM BwL4s1RnDrYfJ1ODqvX6XzVJAz uycoRt50hL7pCsPcAdD9RZqt N4EkrzG0UWEmzTZmGHxiZJI0I5 3nw9Y8TXDgJLOaHHP7pZT6vT8w bGlnbjogbGVmdDsgdmVydGlj QJigACudU146LOBykQfgEyDdXT luZyBEYXRlOiAgMDMvMzEvMjAy MzwvdGQ+PVTxSOK3jAhzCAAh pQMkJEobJg2iaQdjeBbxFV3vTW CgqyesORYriQ6yYXFyaJZdkTqa DU0aTXTxkzitr830SdFyKLH8 DJExwXBhJ8BdfR5jBzMoBDUiXL YlL3VhoHZxPLvbZ552FQvrQiO5 VIZybtTfB0HpJTQsnMpbWyC1 b4R6Nw6Rj3TnpspsU4RqgZJtTu KjKuyjGCy5G3PgNaufzXS+PC90 HEMhMS43SLm8UAY7aJgjBGgx XHIjO3TgpN8yGwZbXXBmMMHeCn c+PHRhYmxlIHdpZHRoPScxMDAl KoQxiCnlCX2nPf0pMRKoIMZq fYzvkHGdRbZlf8xmTYRtSQabHN 0zeKyhD6UjuBW5SYYfi8t1Ev87 X56yL4TygVL+YNBjaUL8aCX9 mC4kPdAqVtV1FOdbG860OoSsdU QjEgeyv9cxo9fhzTu5JaY7ZBYg eqEolOldSRN0c6UuJu54M62q IHdpZHRoPSIxNSUiIHZhbGlnbj 9zqE0fLw9+HSZseMG6gTZ4lY6p EiByHhW3ERhlD645QhJfuZSw Mkngt1ncz2eoeFq5FfUgDTXfks UreWtxTWY4u0NjPt19L0GpoDxp i4QqRhm1gg32hZPkj5E0xGO6 P4FeUWFhhnvmkUAvwAqiJS5bYW XgzdwmIIAyaJ3vOLWeI9s7XgLa DpV2WNjjT2HwmiG9EZTkwNYn PCFqtWQLsG7wtcjrn4qtcgliAa NiUSUkJRj5ZIp1QGHknCyoBmQz TEV1MkM7RWC9zPWkqV6rrWhj bbldwL6dVne+CJM3iTPcyOHYJS 1lOjwvdGQ+UZWrWZA3jBfaUJeq ROEixV3kLKOmX5s1ToLoYeE9 PEvkT3HcllE0ISMtrRXgHDErhD KMpV9kcgfsn8jnirjxSvEgJZYx EQw7SUi5GFTasNqoHiWlQND8 BiT9NNF9mXBfrR0ioIoipckbrF 9wOyc+AwdytAprPHE5SMd0G4Yi Kuc5DLBatUstJO7gyGRxMXkb Be0ikBairAcxWY8cFAGdlspuh5 37LhZqo2jnHLOzpXZdNMvgWRQ1 N62ob9W0USSwHQTzVMC1dAP0 uR7wzLrxcaytyZRchKeliwDznO koGSoxLRyyT025TMFxqRksGaHa UMt5K6JsRpd3SHJtsOjyPT9j jUFoKAyyMg8moXuifKspYA5hSC Yelqasw925WqLgz8jiUKFctIAo DHanWPA9R17ij6P4HFHtAXVs EFQ4oFC2vD9rwYxystseyVOmnI nzpvPcyLqcITqrLSjwH723STQi tSybKjDpiId6G7ZmTrh3RENb dZxzGY7gkEQzMSsgZx8rdIrolH yhCV7wZFIcnhevv558OeMnl0gj KRSxxNXtRPxhBCE7F16sq9C3 OYEnZOPzOZC8rDT5xR0kkRoeqi ogbGVmdDsgdmVydGljYWwtYWxp A009BRGffFtaDiIeqOrgtvZz IBfyGMp2L3UzYqkszYB+PC90YW XlNE93cJSkzDYuf0fjbWo5HxWn ZWQzXBG3bIonEEutz8LjROMj O79jnVTfr6H5OBLzcLhqgQBjXj HjtOP6nE5kHQdrengtu9tldjml Xzrgg6qfhm36tX01R64vFItj WXJiCOWhJGXeSTHtoHakqw5rmA 9wIi8+LQSnhEE3xXJ9yB1rZWLr RdK0VFobT634OjJqyOXkHzqk b2qxw3eaqUt2JqU2VHTxufGffL fgRRC9b1XkKv01J62dFSxgXHLz QRWwWNDlYVMlzSkimx1mdR3o Ii8+IMOwpNV3kQD4cD9cHcMxAf E1DAvrE395UmDzgWWfZbwfV14i N8ZzsMG+OSQjSqx0NOStwAai GO3csNAyWTisTx3rOOQ2PcOtUi PwDWxsL8FnXVDohtpucfyndYC6 EGMoRGVtkB96Sx5fqTynSUTq tNPKqX0zjynpb7vwmwemKvXfDZ KdLQw7ZJk2HHIqiKdaNlVrKGQ6 QeD7AXV6zQQqrO9wdCwinplp aV6zD2ThGZWwkojmAf30oY9fBc OcSkG1EWxhCll+QkVSQkVSSUNL IGFCCvOCAfGGFJ53NG51iFTj z4K0xPY8Y1RiHMPzibnhwbdjwY L0FQCpYPZrrV35iBOwDBfuCz6d s9C8t434YPTdXPYgjX56Om4y oIxsVJQquBOJuY6yftgce6wuez ywAfTlCWLfZJy9NDd6KQYvnLmt NiShGIL6CwQ3BWU8eIYdxP2z yGmagyvjaX0zTpa+MDgvMzEvMT n0QLuuePJ+MFBgGJO1eCdhLSsg RGRknV4lVYGsO2x5VpFbJtA4 NNauS9XkQRJunhqqNq29aO6iSa YeKfN0SDdxM3SpntI9CSAboIJf WKtqWHF8E46ox3G2OWEdZYIf HEC3vCK9tR9asNgywzvpgVSdkY ocrjZciAquFFjqNRgtJ457GFWu mXmgJtYqMTogYDOxLX18TQ18 hPVcy2Q5zLA8M9LhJQSvhzgpbn orpKQ8NQUtKXQggJ87nTAnPFvc Om4bp7S9u541WBSqKQDosW79 Oj8ggDvtKIYtySCGjS5gmbroj0 jkqvdnJbByGMPbHUu4OCi3QUVb tWlvOpNlVAM9QbH6HBM8pYPa jI5rrLfzzbfetP7uUxa+TWFsZT wvdGQ+FBZpEMR9sIsfYDwtKLJn iW5wETFcT7e1AhQcBgC6ZYmf X7LnMZTwzqjkPp53cT9jIdNtFe N9QQalQ3WmhlH9VGGanZNpMEgi JZF9O46hl9I5GNJoBUJtTYC1 qTZ4pP8xuOaqvblxyTPbeApksj GjjKjiWPuxHQekP976ZMFppZhd OjUgLuDpFXGorthpA9JgWTYQ GCgxL5PiB9EhaVmvcXT+PC90cj 61R6WhSeypSpi1QEMqQFX3cJD3 oG8oPHGqIYkzi3T4aOZ9A8Qi koVilz5gd6unUZAaMJouR08fiB Uwz0E2IWOltNA3OLRaqDkdLkOy gQ37Oot+ANZwmOney1VtVtop e3icl1jwvWb8VbYxLUWxejGctG qxXJL4m2PzNz54Y57tTUqmEGJj PIYuFKSkSJYkaWwvqj0puI4i Ii8+BXAuxIC4bXE2fA0rGaHyUm L2PWvvR210OzNzrKZaVclxu9ic a1ebfKw6UmGqSTPedfWyqYbs PZT2n5OuYa20W9FzpNukq8OoBs r6sy44fKRsq6G2uOO8B3SpGRJp uvpdsDUihMyyBG8yNMWazmbf LRVfzQ3rGYYbU1g9QjJvEeU8ZT ckD0OdojQ1OIEwfPVsNJPddISO wI3dhnmor7yyozamWbKuDCNo PRx2GJu7ARAqkYvsXuYrFFA0Ww O3LUM5kTDcsJ2cjGkwdtkzvJ1j Oyc+VCn4s5eqiBClZO9uxKG1 XB30GK71mXUzv8G3jCV1M8ZcMC SromjzysxgrLO9HTCfFDLwtU24 Jc4rpWodSl0pBSJgEKC2UOXr wTXfT0VckB7uEvLgDJBlNQMmV3 CjcHZtVRjxT275GUlfGeU0QGHh taYfD7ZcNIXucRzqYzM4x4E7 It9RLN72EJ80EA45mPXkd7J5rR E0J4OeDNZzkhzyrwezcUK5SXDo CSJbvD11Aj4atEeyJv1gMPUp VIG2WNChuLPfP7XqbL3mDlTwBU MxHMSfQ7VhsZOlUGvpA663DWeb DtM5HADffsEcB1GyQHQcwQal JjJ2n3N4Ej3QJm00ES01ZQ66jF Ved6H7eKL1H9IiYGXrqzvkxrdr yMX2SEAyUSMrdR43Ea7zoTjp Xg7lUKMwKGI2GRMsyYGzA1FdqH 4iKsAfRICzDDIfQ3SomTBvUWvq O099VXqrOvG4DEGepnKdW2Yy AXZiaVqwWkL2r1I4Lm1SJJfqcw u0E9ZkPkhzcBB+KS08ZQWhNG05 uUKxfGZgf9rtoEx3NkXhHRPd DRI1vKlb (more content not included)... Normal [facility] Retail - Clinical Noteon Retail - Clinical Note [id number]:127 Normal [facility] Urology Office/Clinic Noteon 12-31-2022 Urology Office/Clinic Note Chief Complaint Pt is here for PO RALP HPI Staff Ashok is a 62 y.o. male here for PO RALP, PRW pt. Previous Dx: BPH w/ urinary obstruction, elevated PSA, hematuria, nodular prostate, prostate cancer, prostatitis. S/P RALP done on 12/22/22, MRI fusion biopsy done on 09/22/22. Dysuria: denies Incomplete bladder emptying: Has Arndt Hematuria: denies Leaking: denies History of Present Illness Pt is here for follow up to RALP done on 12/22/2022 Reviewed Cystogram (no leak) Pt has no associated symptoms, no fever, no chills, no flank pain. I have reviewed the previous health record information and history for this patient from Dr. Stauffer Review of Systems PHQ Score Initial Depression Screen Score: 0 ROS - Provider Constitutional: denies weight loss, denies hot flashes. Eyes: denies eye problems. Gastrointestinal: denies nausea, denies vomiting. Cardiovascular: denies chest pain or angina. Integumentary: no dryness Musculoskeletal: denies musculoskeletal symptoms. ENMT: denies otolaryngeal symptoms. Respiratory: no shortness of breath. Heme/Lymph: denies easy bleeding tendency, denies easy bruising tendency. Psychiatric: no confusion, no anxiety. Genitourinary: Pt has Arndt Catheter Physical Exam Vitals & Measurements HT: 69 in HT: 175 cm WT: 84 kg WT: 184.8 lb BMI: 27.43 General Appearance: alert, no distress, well nourished, well developed male. Lap incisions c/d/i healing well, skin glue. Soft, non tender, non distended abd 18Fr arndt to leg bag, cyu, removed without issue Procedure Pt's Arntd catheter has been removed in office today with no difficulties or complications. They have been advised to drink plenty of fluids. Pt has been instructed to call office in the event that they are not able to void in the next 4-5 hours, or go to the ER. Also advised Pt if they experience any severe bleeding, fever over 101 and /or shaking chills to go to the ER. Assessment/Plan Will return for follow up in 6 weeks w/PSA 1. Prostate cancer (C61: Malignant neoplasm of prostate) 62 yo male diagnosed with low risk prostate cancer, cT1c, grade group 1, iPSA 9.2 diagnosed 09/02/2022 on MRI fusion TP biopsy by PRW. PSA: 08/17/20 - 3.1 08/01/22 - 7.8 & 11.3% 08/18/22 - 9.2 & 13% MRI prostate 09/02/22 - posterior left PI-RADS 4 measuring 1 cm. Posterior right PI-RADS 4 measuring 1 cm. 79 mL volume. No LAD S/p MRI fusion transperineal biopsy 09/22/[address] Jane path report shows Evin 6 (3+3), GG1, 29% involvement of tissue. The core amount was not provided but at least +3/10 cores (Right base, right anterior medial, left anterior lateral. MECHE neg/no prostatic tissue) Preop LULA 22 Pt is S/P RALP on 12/22/2022 Pt had Arndt catheter removed in office today with no difficulties -Will start Tadalafil 5mg qd for penile rehab and penile Vacuum Devise-do not use for 6 weeks -Pt can start Kegels in 1 week -Timed voiding -Discontinue Tamsulosin 0.4mg and Solifenacin 5mg -Follow up in 6 wks with PSA -Will call with path results once available Follow-up With When Contact Information Eh WESTBROOK, Aubrie Tripathi, URL, URO In 6 weeks Additional Instructions: w/PSA Patient Education Prostate-Specific Antigen Test Alisa Cortez, personally scribed for Dr. Stauffer on 12/30/2022 11:05:55. . Documentation recorded by the scribAlisa luis, accurately reflects the services(s) I performed and decisions made by me. Authenticated by Dr. Stauffer on 12/30/2022 11:28:01. Problem List/Past Medical History Ongoing BMI 27.0-27.9,adult Color blind Elevated PSA Hematuria Prostate cancer Prostatitis Historical Hyperlipidemia Procedure/Surgical History Robot assisted laparoscopic radical prostatectomy (12/22/2022), MRI-US fusion guided transperineal biopsy of prostate (09/22/2022), TRUS (transrectal ultrasound) guided cryoablation of prostate (01/17/2019), TRUS (transrectal ultrasound) guided cryoablation of prostate (08/16/2018), Cystoscopy (07/21/2011). Medications acetaminophen, 650 mg, Oral, q4hr, PRN Celebrate Multivitamin, 1 tab(s), Chewed, Daily Colace 100 mg Cap, 100 mg= 1 cap(s), Oral, BID Fish Oil 1000 mg oral capsule, 1000 mg= 1 cap(s), Oral, Daily niacin 100 mg oral tablet, 100 mg= 1 tab(s), Oral, Daily Erbacon 325 mg-5 mg oral tablet, 2 tab(s), Oral, q4hr, PRN solifenacin 5 mg Tab, 5 mg= 1 tab(s), Oral, Daily, PRN, 2 refills Allergies No Known Allergies Social History Alcohol - Denies Alcohol Use, 12/02/2022 Substance Abuse - Denies Substance Abuse, 12/02/2022 Tobacco - Denies Tobacco Use, 12/02/2022 Never (less than 100 in lifetime) Tobacco Use:. Cigarettes, 02/23/2022 Family History Diabetes mellitus: Father. Immunizations Vaccine Date Status Comments influenza virus vaccine, inactivated - Not Given Temporary contraindication - reschedule SARS-CoV-2 mRNA (tozinameran 5y-11y) vac - Not Given Temporary contraindication (more content not included)... Normal [facility] Comment on above: Result Comment: Elec tronically Signed By: Aubrie Stauffer MD\.br\Date and Time Signed: 12/31/22 13:01 EDT Ambulatory Visit Summaryon 0 12-30-2022 Ambulatory Visit Summary ASHOK DE LEON :1960 Visit Date:12/30/2022 Ambulatory Visit Instructions Your Diagnosis Prostate cancer Your Care Team Attending Physician - Aubrie Stauffer MD Primary Care Physician - LETI BULLARD MD This Is Your Medications List tadalafil (tadalafil 5 mg oral tablet) Contact prescribing physician if questions or concerns acetaminophen acetaminophen-hydrocodone (Erbacon 325 mg-5 mg oral tablet) docusate (Colace 100 mg Cap) multivitamin with minerals (Celebrate Multivitamin) niacin (niacin 100 mg oral tablet) omega-3 polyunsaturated fatty acids (Fish Oil 1000 mg oral capsule) [Image Removed: STOP]Stop taking these medications solifenacin (solifenacin 5 mg Tab) Procedures Performed Robot assisted laparoscopic radical prostatectomy (12/22/2022), MRI-US fusion guided transperineal biopsy of prostate (09/22/2022), TRUS (transrectal ultrasound) guided cryoablation of prostate (01/17/2019), TRUS (transrectal ultrasound) guided cryoablation of prostate (08/16/2018), Cystoscopy (07/21/2011). Discharge Vitals Height 175 cm Height 69 in Weight 84 kg Weight 184.8 lb BMI 27.43 What to do next Scheduled Follow-Up Appointments Wednesday 3:00 PM EDT With: WILLIS WESTBROOK, Harshad Min Where: [facility] IntraOperative Documentson 0 12-30-2022 IntraOperative Documents [id number] [facility] Patient Educationon 12-31-19 23 Patient Education Oncology Prostate-Specific Antigen Test Why am I having this test? The prostate-specific antigen (PSA) test is a screening test for prostate cancer. It can identify early signs of prostate cancer, which may allow for more effective treatment. Your health care provider may recommend that you have a PSA test starting at age 40 or that you have one earlier or later, depending on your risk factors for prostate cancer. You may also have a PSA test: ? To monitor treatment of prostate cancer. ? To check whether prostate cancer has returned after treatment. ? If you have signs of other conditions that can affect PSA levels, such as: ? An enlarged prostate that is not caused by cancer (benign prostatic hyperplasia, BPH). This condition is very common in older men. ? A prostate infection. What is being tested? This test measures the amount of PSA in your blood. PSA is a protein that is made in the prostate. The prostate naturally produces more PSA as you age, but very high levels may be a sign of a medical condition. What kind of sample is taken? A blood sample is required for this test. It is usually collected by inserting a needle into a blood vessel or by sticking a finger with a small needle. Blood for this test should be drawn before having an exam of the prostate. How do I prepare for this test? Do not ejaculate starting 24 hours before your test, or as long as told by your health care provider. Tell a health care provider about: ? Any allergies you have. ? All medicines you are taking, including vitamins, herbs, eye drops, creams, and rync-sfx-bbcpyte medicines. This also includes: ? Medicines to assist with hair growth, such as finasteride. ? Any recent exposure to a medicine called diethylstilbestrol. ? Any blood disorders you have. ? Any recent procedures you have had, especially any procedures involving the prostate or rectum. ? Any medical conditions you have. ? Any recent urinary tract infections (UTIs) you have had. How are the results reported? Your test results will be reported as a value that indicates how much PSA is in your blood. This will be given as nanograms of PSA per milliliter of blood (ng/mL). Your health care provider will compare your results to normal ranges that were established after testing a large group of people (reference ranges). Reference ranges may vary among labs and hospitals. PSA levels vary from person to person and generally increase with age. Because of this variation, there is no single PSA value that is considered normal for everyone. Instead, PSA reference ranges are used to describe whether your PSA levels are considered low or high (elevated). Common reference ranges are: ? Low: 0?2.5 ng/mL. ? Slightly to moderately elevated: 2.6?10.0 ng/mL. ? Moderately elevated: 10.0?19.9 ng/mL. ? Significantly elevated: 20 ng/mL or greater. Sometimes, the test results may report that a condition is present when it is not present (false-positive result). What do the results mean? A test result that is higher than 4 ng/mL may mean that you are at an increased risk for prostate cancer. However, a PSA test by itself is not enough to diagnose prostate cancer. High PSA levels may also be caused by the natural aging process, prostate infection, or BPH. PSA screening cannot tell you if your PSA is high due to cancer or a different cause. A prostate biopsy is the only way to diagnose prostate cancer. A risk of having the PSA test is diagnosing and treating prostate cancer that would never have caused any symptoms or problems (overdiagnosis and overtreatment). Talk with your health care provider about what your results mean. Questions to ask your health care provider Ask your health care provider, or the department that is doing the test: ? When will my results be ready? ? How will I get my results? ? What are my treatment options? ? What other tests do I need? ? What are my next steps? Summary ? The prostate-specific antigen (PSA) test is a screening test for prostate cancer. ? Your health care provider may recommend that you have a PSA test starting at age 40 or that you have one earlier or later, depending on your risk factors for prostate cancer. ? A test result that is higher than 4 ng/mL may mean that you are at an increased risk for prostate cancer. However, elevated levels can be caused by a number of conditions other than prostate cancer. ? Talk with your health care provider about what your results mean. This information is not intended to replace advice given to you by your health care provider. Make sure you discuss any questions you have with your health care provider. Document Released: 10/23/2005 Document Revised: 09/02/2018 Document Reviewed: 06/27/2018 Diarize Patient Education ? 2019 [employer]. [facility] Consent for Treatmenton 12-03 Consent for Treatment [id number]#1.00CD:127 [facility] XR Cystography Minimum 3 Vie wson 12-29-2022 XR Cystography Minimum 3 Views Exam Date/Time: 12/29/2022 13:30 EDT Reason for Exam: C61;Other (please specify) Report IMPRESSION: NEGATIVE CYSTOGRAM. EXAM: XR Cystography Minimum 3 Views DATE: 12/29/2022 CLINICAL HISTORY: C61. COMPARISON: None available. TECHNIQUE: Using the patient's indwelling Arndt catheter, approximately 100 mL of Isovue 300 contrast and 250 mL of saline was instilled with gravity drainage. A total of 731.86 DAP (mGym2) of fluoroscopy was used. Four diagnostic images were obtained. FINDINGS: A Arndt catheter is noted in expected position. The urinary bladder is normal in contour, without contrast extravasation or significant postvoid residual volume. Ordering Provider: Aubrie Stauffer FINAL REPORT Dictated: 12/29/2022 1:58 pm Ramana Yarbrough MD Signed (Electronic Signature): 12/29/2022 1:58 pm Signed by: Ramana Yarbrough MD Transcribed by: TRACIE Technologist: FELICIANO Technical Comments Contrast: Isovue 300 Radiation Dose: Ka,r in mGy = 14.50 DAP = 731.86 [facility] IntraOperative Documentson 0 12-28-2022 IntraOperative Documents [id number]#1.00CD:127 [facility] Consultation Noteon 12-26-19 Consultation Note [id number]#1.00CD:127 [facility] Main OR Intraoperative Recor don 12-25-2022 Main OR Intraoperative Record IntraOp Document Type FT Summary Primary Physician: Aubrie Stauffer MD Finalized Date/Time: 12/25/22 08:01:16 Pt. Name: ASHOK DE LEON/Sex: 1960 Male Med Rec #: [id number] Physician: Aubrie Stauffer MD Financial #: [id number] Pt. Type: A Room/Bed: [place] [address] Admit/Disch: 12/22/22 09:46:20 - 12/23/22 14:25:00 Institution: Case Times FT Entry 1 Patient Times In Room 12/22/22 13:45:00 Out Room 12/22/22 19:36:00 Procedure Times Start 12/22/22 14:12:00 Stop 12/22/22 19:30:00 Anesthesia Times Start 12/22/22 13:45:00 Stop 12/22/22 19:36:00 Last Modified By: Cindy Mckeon RN 12/22/22 19:38:31 General Comments: DAVINCI ROBOT PROGRAMMED TO PELVIC REGION AND POSITIONED ON THE PATIENT'S LEFT. DAVINVI ROBOT DOCKED AT 1420, UNDOCKED AT 1852.[facility] [id number].MACARIO BAINS. 12/25/22 Chart opened to review and send charges [facility]FA Case Attendance FT Entry 1 Entry 2 Entry 3 Case Attendee Jeffry CLEMENT, Alana Stauffer MD, Aubire BAH MD, MABEL Role Performed DRY JANITOR Surgeon - Primary Surgeon - Assist 1 Time In 12/22/22 13:45:00 12/22/22 13:45:00 12/22/22 13:45:00 Time Out 12/22/22 14:12:00 12/22/22 19:36:00 12/22/22 17:47:00 Procedure PROSTATECTOMY, ROBOT PROSTATECTOMY, ROBOT PROSTATECTOMY, ROBOT ASSISTED(.) ASSISTED(.) ASSISTED(.) Comments IS SUPERVISING Last Modified By: Mike RN, Cindy Mckeon RN, Cindy Flaherty RN 12/22/22 19:38:33 12/22/22 19:38:33 12/22/22 19:38:33 Entry 4 Entry 5 Entry 6 Case Attendee Maryellen Estrada RN, Leeann Carlin Role Performed Panel Edge Sealer - Primary Panel Edge Sealer - Primary Scrub - Primary Time In 12/22/22 13:45:00 12/22/22 13:45:00 12/22/22 13:45:00 Time Out 12/22/22 17:00:00 12/22/22 14:18:00 12/22/22 19:36:00 Procedure PROSTATECTOMY, ROBOT PROSTATECTOMY, ROBOT PROSTATECTOMY, ROBOT ASSISTED(.) ASSISTED(.) ASSISTED(.) Comments OUT OF ROOM [id number] Last Modified By: Mike RN, Cindy Mckeon RN, Cindy Flaherty RN 12/22/22 19:38:33 12/22/22 19:38:33 12/22/22 19:38:33 Entry 7 Entry 8 Entry 9 Case Attendee Brayan GREEN, Kasey Schmidt DIRECTOR OF VALUATION, Darian Win RN, Tammy Role Performed DIRECTOR OF VALUATION/SA DIRECTOR OF VALUATION/SA INDEX EDITOR Time In 12/22/22 13:45:00 12/22/22 13:45:00 12/22/22 13:45:00 Time Out 12/22/22 14:29:00 12/22/22 15:05:00 12/22/22 16:22:00 Procedure PROSTATECTOMY, ROBOT PROSTATECTOMY, ROBOT PROSTATECTOMY, ROBOT ASSISTED(.) ASSISTED(.) ASSISTED(.) Comments Last Modified By: Mike RN, Cindy Mckeon RN, Cindy Mckeon RN, Cindy Langley 12/22/22 19:38:33 12/22/22 19:38:33 12/22/22 19:38:33 Entry 10 Entry 11 Entry 12 Case Attendee Manasa DRY JANITOR, Rossana Posada RN, CNOR, Reema Sutherland CST, Kimberlee Langley Role Performed DRY JANITOR INDEX EDITOR Scrub - Relief Time In 12/22/22 14:12:00 12/22/22 15:05:00 12/22/22 16:35:00 Time Out 12/22/22 19:36:00 12/22/22 17:00:00 12/22/22 17:15:00 Procedure PROSTATECTOMY, ROBOT PROSTATECTOMY, ROBOT PROSTATECTOMY, ROBOT ASSISTED(.) ASSISTED(.) ASSISTED(.) Comments IS SUPERVISING Last Modified By: Mike RN, Cindy Mckeon RN, Cindy Mckeon RN, Cindy Langley 12/22/22 19:38:33 12/22/22 19:38:33 12/22/22 19:38:33 Entry 13 Entry 14 Entry 15 Case Attendee Kentrell SORTO, Maribel Bal DIRECTOR OF VALUATION, Cristina Posada RN, CNOR, Reema Hernandez Role Performed Panel Edge Sealer - Relief DIRECTOR OF VALUATION/SA INDEX EDITOR Time In 12/22/22 16:55:00 12/22/22 16:55:00 12/22/22 17:44:00 Time Out 12/22/22 18:23:00 12/22/22 17:47:00 12/22/22 19:36:00 Procedure PROSTATECTOMY, ROBOT PROSTATECTOMY, ROBOT PROSTATECTOMY, ROBOT ASSISTED(.) ASSISTED(.) ASSISTED(.) Comments Last Modified By: Mike RN, Cindy Mckeon RN, Cindy Mckeon RN, Cindy Langley 12/22/22 19:38:33 12/22/22 19:38:33 12/22/22 19:38:33 Entry 16 Case Attendee Cindy Mckeon RN Role Performed Panel Edge Sealer - Relief Time In 12/22/22 18:20:00 Time Out 12/22/22 19:36:00 Procedure PROSTATECTOMY, ROBOT ASSISTED(.) Comments Last Modified By: Cindy Mckeon RN 12/22/22 19:38:33 Perioperative Protocols FT Pre-Care Text: Implements protective measures prior to operative or invasive procedure, confirms identity before the operative or invasive procedure, verifies operative procedure, surgical site, and laterality Entry 1 Procedure(s) PROSTATECTOMY, ROBOT Patient Identity Birthday, ID Band ASSISTED(.) Verified (select at Check, Patient least 2): Participation Consents / H and P Anesthesia Consent, Operative Site N/A Verified HandP, Surgery/Procedure Marking Verified Consent, Transfusion Consent Surgical Site Yes Laterality Verified n/a Verified Procedure Verified Yes Correct Patient Yes Position Verified Availability Equipment, Medication Prep Dry Yes Verified (If Applicable) PreOp Antibiotic Yes Time Out Alana Teran CRNA Given Participants N., Eh WESTBROOK, OLVIN Alegria MD, Natalie MONROE Kelsie E, Crosby RN, Nathanael Pepe Jessica D, Wilh (more content not included)... [facility] Discharge Instructionson Discharge Instructions [id number]#1.00CD:127 [facility] Physician Orderon 12-24-2022 Physician Order [id number]#1.00CD:127 [facility] Blood Bank Slipon 12-23-2022 Blood Bank Slip [id number]#1.00CD:127 [facility] Consent for Anesthesiaon Consent for Anesthesia [id number]#1.00CD:127 [facility] Discharge Note-Nursingon Discharge Note-Nursing ASHOK DE LEON :1960 Visit Date:12/22/2022 Inpatient Discharge Instructions Your Care Team Admitting Physician - Aubrie Stauffer MD Referring Physician - Aubrie Stauffer MD Reason for Your Visit PROSTATE CANCER Your Diagnosis Prostate cancer, Prostate cancer Tests Performed ABO/Rh Antibody Screen Automated Diff BMP CBC w/ Auto Diff eGFR Type Verification This Is Your Medications List acetaminophen acetaminophen-hydrocodone (Erbacon 325 mg-5 mg oral tablet) cephalexin (Keflex 500 mg Cap) docusate (Colace 100 mg Cap) multivitamin with minerals (Celebrate Multivitamin) niacin (niacin 100 mg oral tablet) omega-3 polyunsaturated fatty acids (Fish Oil 1000 mg oral capsule) solifenacin (solifenacin 5 mg Tab) [Image Removed: STOP]Stop taking these medications tamsulosin (tamsulosin 0.4 mg Cap) Procedure History MRI-US fusion guided transperineal biopsy of prostate (09/22/2022), TRUS (transrectal ultrasound) guided cryoablation of prostate (01/17/2019), TRUS (transrectal ultrasound) guided cryoablation of prostate (08/16/2018), Cystoscopy (07/21/2011). Discharge Vitals Temperature (Oral) 37 ?C Heart Rate (Monitored) 86 Respiratory Rate 18 Blood Pressure 98/56 Height 175.26 cm Weight 80.9 kg BMI 26.34 What to do next Instructions From Your Doctor Event Name Event Result Discharge Activity Ambulate as tolerated, Expect mild pain, Expect minimal amount of drainage and/or bleeding Discharge Diet(s) Regular Call Your Doctor For Persistent or heavy bleeding, Temperature above 101.5 degrees, Redness, swelling, or pus at operative site, Severe pain at the operative site, Persistent vomiting Pending Diagnostic Test Results Biopsy/pathology Pharmacy Information [facility] Previously Scheduled Follow-Up Appointments Wednesday 3:00 PM EDT With: WILLIS WESTBROOK, Harshad Min Where: [facility] Inpatient Clinical Summaryon 12-23-2022 Inpatient Clinical Summary [address] [address] Clinical Summary Person Information: Name: ASHOK DE LEON Age: 62 Years : 1960 Sex: Male PCP: LETI BULLARD MD Marital Status: Race: White Ethnicity: Non- or Language: Lithuanian Visit Id: Visit Reason: PROSTATE CANCER Speciality: Acuity: Enc Type: Observation Med Service: Surgery Arrival: 12/22/2022 09:46:20 Discharge: Dispo Type: Address: [address] [place] [phone] Provider Notes: Diagnosis: Prostate cancer Problems Active Prostate cancer Nodular prostate BMI 27.0-27.9,adult Hematuria Prostatitis Color blind Elevated PSA BPH with urinary obstruction Smoking Status: Never Smoker Functional Status: Sensory Deficits: History of Falls: Mobility Assistance Prior to Admission: ADLs: Current Level of Assistance for Self-Care/Mobility: Cognitive Status: Oriented x 3 Allergies No Known Allergies Measurements: Height: 175.26 cm Weight: 80.9 kg Blood Pressure: 98 mmHg / 56 mmHg BMI: 26.34 kg/m2 Procedures No Procedures Documented Immunizations No Immunizations Documented This Visit Final Med List: acetaminophen 650 Milligram By Mouth every 4 hours as needed Pain/Fever. Mild-moderate pain. Not to exceed 4000 mg acetaminophen per day. acetaminophen-hydrocodone (Erbacon 325 mg-5 mg oral tablet) 2 Tablets By Mouth every 4 hours as needed for pain. 1 tablet for moderate pain, 2 tablets for severe pain. Refills: 0. cephalexin (Keflex 500 mg Cap) 1 Capsules By Mouth every 12 hours for 1 Days. Start morning of arndt removal. Refills: 0. docusate (Colace 100 mg Cap) 1 Capsules By Mouth 2 times a day. Hold for loose stools > 2/day. Refills: 0. multivitamin with minerals (Celebrate Multivitamin) 1 Tablets Chewed every day. niacin (niacin 100 mg oral tablet) 1 Tablets By Mouth every day. omega-3 polyunsaturated fatty acids (Fish Oil 1000 mg oral capsule) 1 Capsules By Mouth every day. solifenacin (solifenacin 5 mg Tab) 1 Tablets By Mouth every day as needed Urinary discomfort. 1-2 times per day as needed for bladder spasms. Refills: 2. Care Team Members: Attending Physician: Aubrie Stauffer MD Consulting Physician: Referring Physician: Aubrie Stauffer MD Follow up: With: Address: When: LETI BULLARD [address] [place] [address] Business (1) 12/29/2022 1:00 PM With: Address: When: Aubrie Stauffer [address] [place] [phone] Business (1) [address], [address], [address] [address] [phone] Business (1) Comments: Office to call for followup appointment in 1 week for cystogram and arndt removal. Type Location Start Finish [facility] Office Visit [facility] 03/08/2023 3:00 PM 03/08/2023 3:15 PM Confirmed Patient Education Information: Robot-Assisted Laparoscopic Prostatectomy, Care After solifenacin, docusate (oral/rectal), cephalexin, acetaminophen and hydrocodone Normal [facility] Inpatient Patient Summaryon 12-23-2022 Inpatient Patient Summary [address] [address] Patient Discharge Instructions PERSON INFORMATION Name: ASHOK DE LEON Date of : 1960 Current Date: 12/23/2022 11:09:00 PHYSICIANS Admitting Physician: Aubrie Stauffer MD Primary Care Physician: LETI BULLARD MD PCP Comment: Discharge Diagnosis: Prostate cancer Condition at Discharge: Stable ASHOK DE LEON has been given the following list of follow-up instructions, prescriptions, and patient education materials: PATIENT FOLLOW-UP INFORMATION Diet: Regular Discharge Activity: Ambulate as tolerated, Expect mild pain, Expect minimal amount of drainage and/or bleeding Discharge Restrictions: Wound Care Instructions: Remove Your Dressing In Days Call Your Doctor For: Persistent or heavy bleeding, Temperature above 101.5 degrees, Redness, swelling, or pus at operative site, Severe pain at the operative site, Persistent vomiting IF UNABLE TO CONTACT YOUR PHYSICIAN AND YOU FEEL IT IS AN EMERGENCY, GO TO THE NEAREST EMERGENCY ROOM OR CALL 911 Home Treatment: Devices/Equipment: None Special Services: Additional Instructions: Primary Care Physician to provide the following pending test results: Biopsy/pathology Follow up: With: Address: When: LETI BULLARD [address] [place] [address] Business (1) 12/29/2022 1:00 PM With: Address: When: Aubrie Stauffer [address], [place] [phone] Business (1) [address], [address], [facility] [address] [place] [phone] Business (1) Comments: Office to call for followup appointment in 1 week for cystogram and arndt removal. In the event that this physician does not participate in your insurance network, please consult with your insurance company to find a nearby participating provider. Type Location Start Finish [place] [facility] Office Visit [facility] 03/08/2023 3:00 PM 03/08/2023 3:15 PM Confirmed Comment: CARLOS Cortez FRANK J, have received the attached patient education materials/instructions and have verbalized understanding: Patient Signature __ Date Clinican/Nurse Signature Date HERE ARE THE MEDICATION CHANGES THAT OCCURRED DURING YOUR HOSPITAL STAY New Medications [facility], [address] [facility] [place], [place] [phone], [phone] acetaminophen-hydrocodone (Erbacon 325 mg-5 mg oral tablet) 2 Tablets By Mouth every 4 hours as needed for pain. 1 tablet for moderate pain, 2 tablets for severe pain. Refills: 0. Last Dose: N ext Dose: cephalexin (Keflex 500 mg Cap) 1 Capsules By Mouth every 12 hours for 1 Days. Start morning of arndt removal. Refills: 0. Last Dose: N ext Dose: docusate (Colace 100 mg Cap) 1 Capsules By Mouth 2 times a day. Hold for loose stools > 2/day. Refills: 0. Last Dose: N ext Dose: solifenacin (solifenacin 5 mg Tab) 1 Tablets By Mouth every day as needed Urinary discomfort. 1-2 times per day as needed for bladder spasms. Refills: 2. Last Dose: N ext Dose: Other Medications acetaminophen 650 Milligram By Mouth every 4 hours as needed Pain/Fever. Mild-moderate pain. Not to exceed 4000 mg acetaminophen per day. Last Dose: N ext Dose: Medications to Continue with No Changes Other Medications multivitamin with minerals (Celebrate Multivitamin) 1 Tablets Chewed every day. Last Dose: N ext Dose: niacin (niacin 100 mg oral tablet) 1 Tablets By Mouth every day. Last Dose: N ext Dose: omega-3 polyunsaturated fatty acids (Fish Oil 1000 mg oral capsule) 1 Capsules By Mouth every day. Last Dose: N ext Dose: No Longer Take the Following Medications tamsulosin (tamsulosin 0.4 mg Cap) 1 Capsules By Mouth every day for 90 Days. Take one capsule daily after the evening meal. Refills: 3. Comment: MEDICATION LIST PROVIDED FOR YOU IS A LIST OF YOUR CURRENT MEDICATIONS. PLEASE CARRY THIS WITH YOU AT ALL TIMES. acetaminophen 650 Milligram By Mouth every 4 hours as needed Pain/Fever. Mild-moderate pain. Not to exceed 4000 mg acetaminophen per day. acetaminophen-hydrocodone (Erbacon 325 mg-5 mg oral tablet) 2 Tablets By Mouth every 4 hours as needed for pain. 1 tablet for moderate pain, 2 tablets for severe pain. Refills: 0. cephalexin (Keflex 500 mg Cap) 1 Capsules By Mouth every 12 hours for 1 Days. Start morning of arndt removal. Refills: 0. docusate (Colace 100 mg Cap) 1 Capsules By Mouth 2 times a day. Hold for loose stools > 2/day. Refills: 0. multivitamin with minerals (Celebrate Multivi (more content not included)... [facility] Interdisciplinary Note - Lev e Manageron 12-23-2022 Interdisciplinary Note - Hr Analyst CRM to room to discuss DC planning. Patient is awake, alert and oriented. Patient spouse is in room. She will transport at [place]. Patient verified PCP, home DME and Insurance. Patient is pending rounds with Dr Stauffer. Patient observation for Radical prostatectomy. Patient should DC home today. Patient denied any DC needs such as HH, PM or DME. Patient was provided CRM contact information, white board updated. Anticipated DC Today. CRM following Per patient he has not been OOB, Primary nurse notified that patient would like to walk [facility] Comment on above: Result Comment: Elec tronically Signed By: Rohini Gallo\.zhanna\Date and Time Signed: 12/23/22 11:50 EDT Main OR PACU I Recordon 12-03 Main OR PACU I Record PACU Phase I Docum ent Type FT Summary Primary Physician: Aubrie Stauffer MD Finalized Date/Time: 12/22/22 22:30:22 Pt. Name: ASHOK DE LEON D.O.B./Sex: 1960 Male Med Rec #: [id number] Physician: Aubrie Stauffer MD Financial #: [id number] Pt. Type: O Room/Bed: [place] [address] Admit/Disch: 12/22/22 09:46:20 - Institution: Case Times PACU I FT Pre-Care Text: Identifies barriers to communication and implements measures to provide psychological support Develops individualized plan of care, and ensures continuity of care Maintains patient's dignity and privacy, and maintains patient confidentiality Identifies and reports philosophical, cultural, and spiritual beliefs and values Identifies individual values and wishes concerning care Implements aseptic technique, and administers prescribed antibiotic therapy and immunizing agents as ordered Evaluates postoperative tissue perfusion Implements thermoregulation measures, and monitors body temperature Evaluates postoperative respiratory status Evaluates postoperative cardiac status Evaluates postoperative neurological status Assesses pain control, collaborated in initiating patient-controlled analgesia and implements alternative methods of pain control Verifies allergies, administers prescribed medications and solutions, evaluates response to medications Entry 1 In PACU I 12/22/22 19:36:00 Discharge from PACU 12/22/22 21:28:00 I Outcomes Met? Yes Last Modified By: Mary Rivera RN 12/22/22 22:29:01 Post-Care Text: The patient demonstrates knowledge of the expected response to the operative or invasive procedure The patient's care is consistent with the individualized perioperative plan of care The patient's right to privacy is maintained The patient's value system, lifestyle, ethnicity, and culture are considered, respected, and incorporated into the perioperative plan of care The patient participates in decisions affecting his or her perioperative plan of care The patient is free from signs and symptoms of infection The patient has wound/tissue perfusion consistent with or improved from baseline levels established preoperatively The patient is at or returning to normothermia at the conclusion of the immediate postoperative period The patient's respiratory function is consistent with or improved from baseline levels established preoperatively The patient's cardiovascular status is consistent with or improved from baseline levels established preoperatively The patient's cardiovascular status is consistent with or improved from baseline levels established preoperatively The patient demonstrates and/or reports adequate pain control throughout the perioperative period The patient received appropriate medication(s), safely administered during the perioperative period Acuity Level PACU I FT Entry 1 Start Time 12/22/22 19:36:00 Stop Time 12/22/22 21:28:00 Acuity Level Acuity Level I Last Modified By: Mary Rivera RN 12/22/22 22:30:12 Finalized By: Mary Rivera RN Document Signatures Signed By: Mary Rivera RN 12/22/22 22:30 [facility] Monitor Recordon 12-23-2022 Monitor Record [id number]:127 Normal [facility] Monitor Record [id number]#[id number]:127 [facility] Monitor Record [id number]#1.00CD:127 [facility] Preoperative Documentson Preoperative Documents [id number]#[id number]:127 Normal [facility] Progress Note-Physicianon Progress Note-Physician Patient: ASHOK DE LEON Age: 62 years Sex: Male : 1960 Associated Diagnoses: None Author: Luis Alberto WESTBROOK, Ephraim Oakes Postoperative Information Postoperative disposition: Postoperative disposition: To PACU. Optimetrix number: Optimetrix number [id number]. Anesthetic utilized: General. Physical Examination Vital Signs 12/22/2022 21:49 EDT Temperature Oral 37.0 DegC Heart Rate Monitored 103 bpm HI Respiratory Rate 18 br/min Systolic Blood Pressure 129 mmHg Diastolic Blood Pressure 70 mmHg SpO2 99 % 12/22/2022 21:25 EDT Temperature Oral 36.6 DegC Heart Rate Monitored 105 bpm HI Respiratory Rate Monitored 13 br/min Systolic Blood Pressure 124 mmHg Diastolic Blood Pressure 67 mmHg Mean Arterial Pressure, Cuff 86 mmHg SpO2 97 % Pain Assessment: Pain Assessment 12/22/2022 22:00 EDT Primary Pain Location Abdomen Primary Pain Laterality Bilateral Patient Preferred Pain Tool Numeric rating Numeric Pain Scale 2 Numeric Pain Score 2 12/22/2022 21:25 EDT Pain Symptoms Self Report Yes, able to self report Primary Pain Location Abdomen Primary Pain Laterality Bilateral Patient Preferred Pain Tool Numeric rating Numeric Pain Scale 4 Numeric Pain Score 4 12/22/2022 20:55 EDT Primary Pain Location Abdomen Patient Preferred Pain Tool Numeric rating Numeric Pain Scale 4 Numeric Pain Score 4 . General: Awake, Alert, Appropriate. Respiratory: Adequate air exchange, Equal bilateral chest wall expansion. Cardiovascular: Stable. Neurological: At Baseline. Assessment Anesthetic outcome No anesthetic complications noted. C/O irritation in right eye. Review / Management Condition: Stable. Plan Transfer/Discharge: Transfer/Discharge Discharge when meets criteria ( From PACU to floor, and To home ). Followed up with patient. There is no erythema in the eyes and the patient is comfortable. [facility] Comment on above: Result Comment: Elec tronically Signed By: Luis Alberto WESTBROOK, Ephraim Oakes\.br\Date and Time Signed: 12/23/22 11:03 EDT Progress Note-Physician Patient: ASHOK DE LEON Age: 62 years Sex: Male : 1960 Associated Diagnoses: None Author: Eh WESTBROOK, Aubrie Tripathi Subjective POD 1 RALP No issues overnight. Pain well controlled, tolerating PO without nausea/belching.+Flatus. OOB to chair. MARIA GUADALUPE output 0. Good urine output. No acute concerns. Denies SOB, fever, chills or chest pain Health Status Allergies: Allergic Reactions (Selected) No Known Allergies, Allergies (1) Active Reaction No Known Allergies None Documented Current medications: (Selected) Inpatient Medications Ordered Artificial Tears: 2 drop(s), Soln-Opth, OPTH, BID PRN Dry eyes, Routine, Start date 12/22/22 20:52:00 EDT Colace 100 mg Cap: 100 mg = 1 cap(s), Cap, Oral, BID, Routine, Start date 12/22/22 21:00:00 EDT, 12/22/22 19:48:00 EDT Lactated Ringers IV Laurie 1000 mL 1,000 mL: 1,000 mL, IV, 150 mL/hr, Routine, Start date 12/22/22 10:00:00 EDT, 6.7 hour(s), Total volume (mL): 1,000, 81.4 kg, 1.99, m2 NS 1000 mL Soln-IV 1,000 mL: 1,000 mL, IV, 75 mL/hr, Routine, Start date 12/22/22 19:50:00 EDT, 13.3 hour(s), Total volume (mL): 1,000, 81.4 kg, 1.99, m2 Erbacon 5/325 Tab: 1 tab(s), Tab, Oral, q4hr PRN Pain 4-7 for 5 day(s), Stop date 12/27/22 20:37:00 EDT, Routine, Start date 12/22/22 20:38:00 EDT Erbacon 5/325 Tab: 2 tab(s), Tab, Oral, q4hr PRN Pain 8-10 for 5 day(s), Stop date 12/27/22 20:37:00 EDT, Routine, Start date 12/22/22 20:38:00 EDT Pyridium 100 mg Tab: 100 mg = 1 tab(s), Tab, Oral, TIDPC, Routine, Start date 12/23/22 10:00:00 EDT, 12/22/22 19:47:00 EDT Tylenol 325 mg Tab: 650 mg = 2 tab(s), Tab, Oral, q4hr PRN Pain/Fever, Routine, Start date 12/22/22 19:47:00 EDT, 12/22/22 19:47:00 EDT heparin 5000 units/mL Inj: 5,000 unit(s) = 1 mL, Injection, SubCutaneous, q8hrFT for 30 day(s), Stop date 01/21/23 23:59:00 EDT, Routine, Start date 12/23/22 0:00:00 EDT ketorolac 15 mg/mL Inj: 15 mg = 1 mL, Injection, IV Push, q6hr PRN Pain for 5 day(s), Stop date 12/27/22 19:50:00 EDT, Routine, Start date 12/22/22 19:51:00 EDT, 12/22/22 19:51:00 EDT oxybutynin 5 mg ER Tab: 5 mg = 1 tab(s), Tab-ER, Oral, Daily, Routine, Start date 12/23/22 9:00:00 EDT, 12/22/22 19:46:00 EDT Prescriptions Prescribed Colace 100 mg Cap: 100 mg = 1 cap(s), Oral, BID, Hold for loose stools > 2/day, # 60 cap(s), Refills(s) 0, Pharmacy: [facility], 175.3, cm, 12/22/22 22:07:00 EDT, Height/Length Dosing, 80.9, kg, 12/22/22 22:07:00 EDT, Weight Dosing Keflex 500 mg Cap: 500 mg = 1 cap(s), Oral, q12hr, Start morning of arndt removal, X 1 day(s), # 2 cap(s), Refills(s) 0, Pharmacy: [facility], 175.3, cm, 12/22/22 22:07:00 EDT, Height/Length Dosing, 80.9, kg, 12/22/22 22:07:00 EDT, Weight Dosing Erbacon 325 mg-5 mg oral tablet: 2 tab(s), Oral, q4hr for pain, 20 tab(s), Refill(s) 0, 1 tablet for moderate pain, 2 tablets for severe pain, [facility], 175.3, cm, 12/22/22 22:07:00 EDT, Height/Length Dosing, 80.9, kg, 12/22/22 22:07:00 EDT, Weight Dosing solifenacin 5 mg Tab: 5 mg = 1 tab(s), Oral, Daily, PRN Urinary discomfort, 1-2 times per day as needed for bladder spasms, # 30 tab(s), Refills(s) 2, Pharmacy: [facility], 175.3, cm, 12/22/22 22:07:00 EDT, Height/Length Dosing, 80.9, kg, 12/22/22 22:07:00 EDT, W... Documented Medications Documented Celebrate Multivitamin: 1 tab(s), Chewed, Daily, Prophylaxis Fish Oil 1000 mg oral capsule: 1,000 mg = 1 cap(s), Oral, Daily, Refills(s) 0, Prophylaxis acetaminophen: 650 mg, Oral, q4hr, PRN Pain/Fever, Mild-moderate pain. Not to exceed 4000 mg acetaminophen per day, Refills(s) 0 niacin 100 mg oral tablet: 100 mg = 1 tab(s), Oral, Daily, Prophylaxis Objective Intake and Output Fluid Balance Primitives 12/23/2022 6:00 EDT Urine Catheter 300 mL 12/23/2022 5:00 EDT Other: MARIA GUADALUPE Abdomen Left Surgical Drain, Tube Output: 0 mL 12/23/2022 4:10 EDT Other: [facility]IA GUADALUPE Abdomen Left Surgical Drain, Tube Output: 0 mL 12/23/2022 4:00 EDT Urine Catheter 125 mL 12/23/2022 1:33 EDT Other: MARIA GUADALUPE Abdomen Left Surgical Drain, Tube Output: 0 mL 12/23/2022 0:00 EDT Urine Catheter 100 mL Other: MARIA GUADALUPE Abdomen Left Surgical Drain, Tube Output: 0 mL Vital Signs (last 24 hrs) Last Charted Temp Oral H 37.8DegC (DEC 23 04:00) Heart Rate Apical 86 bpm (DEC 22 10:10) Resp Rate 13 br/min (DEC 22) SBP 112 mmHg (DEC 23:) DBP 65 mmHg (DEC 23:) SpO2 96 % (DEC 23:) Weight 80.9 kg (DEC 22:) BMI 26.34 (DEC 22) General: Alert and oriented, No acute distress. Eye: Pupils are equal, round and reactive to light, Extraocular movements are intact, Normal conjunctiva. HENT: Normocephalic, Normal hearing. Respiratory: Respirations are non-labored, Symmetrical chest wall expansion. Cardiovascular: Normal rate, Regular rhythm, No edema. Gastrointestinal: Soft, Non-distended, Appropriately mildly TTP. Laparoscopic incisions c/d/i with skin glue.MARIA GUADALUPE drain to bulb suction, no output. . Genitourinary: Arndt (more content not included)... Normal [facility] Comment on above: Result Comment: Elec tronically Signed By: Eh WESTBROOK, Aubrie Avila.br\Date and Time Signed: 12/23/22 07:55 EDT ABO/Rhon 12-22-2022 ABO/Rh Positive Invalid Interpretation Code [facility] Comment on above: Performed By: #### 1 [id number], [id number], [id number], [id number] ####[facility] [place] [address] ABO/Rh History Checkon 12-22 ABO/Rh History Check Type verified by second s Normal [facility] Comment on above: Performed By: #### 1 [id number], [id number], [id number], [id number] ####[facility] [address] [place] [address] ABO/Rh Retypeon 12-22-2022 ABO/Rh Retype Interp Positive Invalid Interpretation Code [facility] Comment on above: Performed By: #### 1 [id number] ####[facility] [address] [place] [address] ABSCon 12-22-2022 ABSC Gel Interp Negative Normal [facility] Comment on above: Performed By: #### 1 [id number], [id number], [id number], [id number] ####[facility] [address] [facility] [place] [address] Auto Diffon 12-22-2022 Basophils/100 WBC (Bld) 0.3 % Normal 0.0-2.0 [facility] Comment on above: Order Comment: Order Added by Discern Expert. Performed By: #### 1 [id number], [id number], [id number], [id number] #### [facility] [address] [place] [address] Basophils/Leukocytes Auto (Bld) [Pure # fraction] 0.0 E9/L Normal 0.0-0.2 [facility] Comment on above: Order Comment: Order Added by Discern Expert. Performed By: #### 1 [id number], [id number], [id number], [id number] #### [facility] [address] [place] [address] Eosinophils/100 WBC (Bld) 0.0 % Normal 0.0-8.0 [facility] Comment on above: Order Comment: Order Added by Discern Expert. Performed By: #### 1 [id number], 9104474, 9670077, 8094650 #### [facility] [address] [place] [address] Eosinophils/Leukocytes Auto (Bld) [Pure # fraction] 0.0 E9/L Normal 0.0-0.5 [facility] Comment on above: Order Comment: Order Added by Discern Expert. Performed By: #### 1 [id number], 7995961, 8842175, [id number] #### [facility] [address] [place] [address] Lymphocytes/100 WBC (Bld) 2.9 % Low 14.0-50.0 [facility] Comment on above: Order Comment: Order Added by Discern Expert. Performed By: #### 1 [id number], 7609867, 0992159, [id number] #### [facility] [address] [place] [address] Lymphocytes/Leukocytes Auto (Bld) [Pure # fraction] 0.4 E9/L Low 1.0-4.0 [facility] Comment on above: Order Comment: Order Added by Mitali Expert. Performed By: #### 1 [id number], 7754059, 9389370, 1430615 #### [facility] [address] [place] [address] Monocytes/100 WBC (Bld) 3.1 % Low 4.0-14.0 [facility] Comment on above: Order Comment: Order Added by Discern Expert. Performed By: #### 1 [id number], 0751458, 3980126, 3868084 #### [facility] [address] [place] [address] Monocytes/Leukocytes Auto (Bld) [Pure # fraction] 0.4 E9/L Normal 0.2-1.0 [facility] Comment on above: Order Comment: Order Added by Discern Expert. Performed By: #### 1 [id number], 5900185, 0395465, 3908920 #### [facility] [address] [place] [address] Neutrophils/100 WBC (Bld) 93.7 % High 36.0-75.0 [facility] Comment on above: Order Comment: Order Added by Mitali Expert. Performed By: #### 1 [id number], [id number], 7292551, [id number] #### [facility] [address] [place] [address] Neutrophils/Leukocytes Auto (Bld) [Pure # fraction] 11.4 E9/L High 2.0-7.5 [facility] Comment on above: Order Comment: Order Added by Discern Expert. Performed By: #### 1 [id number], 8933615, 8707001, 1719755 #### [facility] [address] [place] [address] BMPon 12-22-2022 Anion gap [Moles/Vol] 14 mmol/L Normal 6-16 [facility] Comment on above: Performed By: #### 1 [id number], 3764264, 2043208, 8412667 #### [facility] [address] [place] [address] Calcium [Mass/Vol] 8.8 mg/dL Low 8.9-11.1 [facility] Comment on above: Performed By: #### 1 [id number], 4171179, 2649524, 2092848 #### [facility] [address] [place] [address] Chloride [Moles/Vol] 101 mmol/L Normal 101-111 [facility] Comment on above: Performed By: #### 1 1853518, 0137809, 3701796, 6967992 #### [facility] [address] [place] [address] CO2 [Moles/Vol] 24 mmol/L Normal 21-31 [facility] Comment on above: Performed By: #### 1 [id number], 4378860, 4847889, 6543138 #### [facility] [address] [place] [address] Creatinine [Mass/Vol] 1.4 mg/dL High 0.5-1.3 [facility] Comment on above: Performed By: #### 1 [id number], 0532197, 8431495, 3415066 #### [facility] [address] [place] [address] Glucose [Mass/Vol] 187 mg/dL Normal 55-199 [facility] Comment on above: Result Comment: If t his glucose result represents a fasting glucose, interpretation should refer to the following reference range: 55-99 mg/dL Performed By: #### 1 [id number], 7400126, 7264309, 9078071 #### [facility] [address] [place] [address] Potassium [Moles/Vol] 4.2 mmol/L Normal 3.5-5.3 [facility] Comment on above: Performed By: #### 1 5681184, 8485166, 6035768, 9880950 #### [facility] [address] [place] [address] Sodium [Moles/Vol] 135 mmol/L Normal 135-145 [facility] Comment on above: Performed By: #### 1 0948061, 5860436, 5970527, 9733508 #### [facility] [address] [place] [address] Urea nitrogen [Mass/Vol] 17 mg/dL Normal 5-21 [facility] Comment on above: Performed By: #### 1 3954071, 3684742, 7527693, 9919992 #### [facility] [address] [place] [address] Urea nitrogen/Creatinine [Mass ratio] 12 No Units Normal 10-20 [facility] Comment on above: Performed By: #### 1 [id number], 7973976, 6991222, 3738707 #### [facility] [address] [place] [address] Blood Bank ID#on 12-22-2022 BBID# [id number] Invalid Interpretation Code [facility] Comment on above: Performed By: #### 1 [id number], 78225750, 13895389, 1551728 ####[facility] [address] [place] [address] CBC w/ Auto Diffon 3 Erythrocyte distribution width (RBC) [Ratio] 13.6 % Normal 10.9-14.2 [facility] Comment on above: Performed By: #### 1 [id number], 1094862, 4499445, 3574859 #### [facility] [address] [place] [address] Hematocrit (Bld) [Volume fraction] 39.6 % Normal 37.7-49.0 [facility] Comment on above: Performed By: #### 1 [id number], 6297445, 0943125, 2067753 #### [facility] [address] [place] [address] Hemoglobin (Bld) [Mass/Vol] 12.9 g/dL Low 13.5-17.5 [facility] Comment on above: Performed By: #### 1 3767683, 3681089, 7510089, 6236772 #### [facility] [address] [place] [address] MCH (RBC) [Entitic mass] 29.4 pg Normal 27.0-34.0 [facility] Comment on above: Performed By: #### 1 2775226, 4106698, 9730049, 8953620 #### [facility] [address] [place] [address] MCHC (RBC) [Mass/Vol] 32.5 g/dL Normal 31.4-36.0 [facility] Comment on above: Performed By: #### 1 3154462, 6153821, 9020052, 0478181 #### [facility] [address] [place] [address] MCV (RBC) [Entitic vol] 90.3 fL Normal 80.0-100.0 [facility] Comment on above: Performed By: #### 1 6064627, 2668836, 9817886, 3273308 #### [facility] [address] [place] [address] Platelet mean volume (Bld) [Entitic vol] 7.9 fL Normal 6.4-10.8 [facility] Comment on above: Performed By: #### 1 2834609, 1843574, 2849232, 7165992 #### [facility] [address] [place] [address] Platelets (Bld) [#/Vol] 267.0 E9/L Normal 150.0-500. 0 [facility] Comment on above: Performed By: #### 1 7116335, 4659633, 9025046, 1767425 #### [facility] [address] [place] [address] RBC (Bld) [#/Vol] 4.4 E12/L Normal 4.3-5.9 [facility] Comment on above: Performed By: #### 1 9609701, 7470236, 3402721, 1680621 #### [facility] [address] [place] [address] WBC corrected for nucl RBC Auto (Bld) [#/Vol] 12.2 E9/L High 4.0-11.0 [facility] Comment on above: Performed By: #### 1 3574052, 9526361, 6353580, 9518285 #### [facility] [address] [place] [address] Coding Summary.on 12-22-2022 Coding Summary. CD:[id number] Gh0bWw +PGhlYWQ+FF6RBNAtH72auSCwq I5fR3DSDRhXRtsoZALGWKnUPmY jhdVuAA8qnAPfRPLk IC8+LJ2xYTXtDhgtxDGdv4X4rU M3I13ivr2dYKtpdZZ4QSQuHvTy iaqnk3dycOs7BJjgFuagQmWt RESuoY53ZXG0xL14Fg73gJSlnX Zfo6flmJt5JnDdDEHxBSC1rOfs QPmvv1XhGXPsW04tpCUpz4C9 CMTtxGmngQLbYxFjwXW6sY1oGF jvtrwrk5wesainYwg5yg51wGCb o9W2yBX0A9EplsA0TVYprPTb RtrobZQHuH9gyyxpo7rtydmoWo ZfJPSfCNx0KQx2FVCuiBfkUlGj XE15CHB5YWBxykFkQ2KnVCSc dOwqEcB4e8A5Ut6FI4EWHqegY1 VNTUFSWTwvdGQ+NJ26uu20S2Mp LojpIir5TWCaQFG5iMM3sY6s WXVwMFyzc2Z1dJE7E2RcrmTzij 6ya4teZVFmVLoyG20vpOUaz1H8 ZHGbwJA0LGRumOqrBsQmuX82 Oyc+FWHmqCrib2TjUqoog8aud6 qojMe6UzgvSPXkicBipZytSOO4 n8ExXd1fBWFjvQH4eNQ9tW3e LeYhPcU5WOyyG238ZzLvuCRoCp liC78aA3AzxGC+SBXmFdf0TESh zOtxZE1jI1SsGVWtnqsztXLp zIxtQY5cOVEghsxaSFYmzC1wDW HjZ0v1YzNqWpT1TBiuF7PbUHKi obcgYr21gH2fZyQmErA6CVzl O6BalrF2OCJejXCjXGipIPZ8N5 4gz1E3HRObHGKrLVA3wFJ0hV8h bGlnbjogbGVmdDsgdmVydGlj MKwmWIchI533VGVefXmyKfVnWX luZyBEYXRlOiAgMDMvMjEvMjAy MzwvdGQ+MOLnVYK6oSlhHAWb nENgJAjiAw6cbQokqYteUM9nVV IawopwOEDmmX6tEESzgRDtqFfe PS8xXRMludbmh182NjWbSSD5 RRYhtTSgM3GcwP1oUhFlQDOnZB LaF6HsaZBbFSkrF126YLcdOzI0 FZAuzyYkV1RnEAMdqRjiRiV0 r5X6Yb1Qa0TjwcblW1QjpWBgUy SmZvrtNRr3A8SaCcsqkAP+PC90 AGKdVV22GKg9TAA8qMrjJXli SPZqP1MujU1eFiLzOMTgMTQlIf c+PHRhYmxlIHdpZHRoPScxMDAl GhKnaPjpZV5dDg8kBFNdOEBx dYbceCYhIxTuq6wvACMgUQigMG 5acMbmK9KuzUE3OEHco7o6Qp35 X79wM9CzaSE+KMQbtHH8sQC0 zC0eUrYpCaN1GEroE385KsRxwO SbPhqve6znx8cpaPx8PxB5SRPo moCmnIotSLW5r2TxTk57B76j IHdpZHRoPSIxNSUiIHZhbGlnbj 6whW1aPp9+DBHenXR9dXT5lH3p ZeIdMfK5RUahN401BgNohZAa Lkzgz8gos0gppQk8JjJbQXZtdl BzbHnzQUX7o8ApIn60H5QnoOjr e6QdWky1oi69zQTlm3J3aPD9 L9LbWIDgmaxxoNGudDarKR4xKD IpouowSMZwdO9nYSHaE0i9VwDl KbG0MAlsR9HqanY2TEQwyQSn HQXekCGYgK7tnqhqc7gqxlzfIm JgDXVxSBu9LRn1KDDuqCubEkMg CBE6XxR7QPE6yDGwjA5soTbi uqxagN5cAmr+TKO1iAZxuNMOEQ 1lOjwvdGQ+IQNsPNG2bNywCEte QTNpdQ4kCIOoY1f0SfEuByQ3 XScdO4GdiqZ3VXSbtWQiZKGciM YWyY8pwsxcx7vveonbKxRaRIJc WNl6FPi6ADQthIwvVbGdCNT6 TiN2VSB2zRRgfI2okLrqebhjjB 9wOyc+KcehwEkyPRV0QQk6X4Uu Oaz0KLDqsYwkKF5shUOiPBhk Gj4nvExcySjvQP9oXQKrifdcu2 62SyOut5ouKRNaxRFwPAjtDJQ4 R13lf3S5QOIgJGWiVLF5iYZ8 gQ9ynFdngclbaBFejDxbdhYvpF fqGTfyHOdzJ456WIDsbJohXoUg DMq9K3AoRbk7TVOntKhgUF3v zUElTSocGg8gpXuiwGooFZ0uRA Wvsnajo647ErBjx9cyYJYwxCLe HWrnCBN5E84vx5R1ZLWiXKAq QSK7pJC3aK6leYugzshboDJeiJ ibtnNxdRgpHCicGKixC178FZCl lQqwIpFloGb2Y1WdSzc1DRFz uHngRC1flGCgVWmlPp5rxUjhwH bpAN3zLFJhquaec121OuTci3zk JJVkyWXdTUzbOWM6Z21cg7F5 PGLhUSQhTLL5eBE6cB2lnYwgeo ogbGVmdDsgdmVydGljYWwtYWxp E509PTEnnWdiAkTplDpxwdUj JBvrDQl2N4QlSvfjhGK+PC90YW HkLJ12iVNybTLaz5wzaQm9KiRq QVBmEQD1pRcoODzgv9JwSWNx V37rbVEcc1B8ODDyjYpvrWGmGg BniSL3wZ9nTUeyeotfy1yanpdp Lyqcp4jlaf19wI36E29eOHqx SQJfSQYhPBMjOZLxnTggnb2ewV 9wIi8+JSMyyAR1vLI4jC7oEWBt AaV0IUejC815XjYdgRPqFcph g8awn5mutSs9RpV0RMPbbmDttZ qcCKS0p6YwJi08M58dVHkzOGJr HIDcUPKoOBCfjXpahn9zsL6q Ii8+BZRiqIP2iTC8dV6bXjHcCl B3NKavV294QrQtpOElGklwS02o G7UieYB+IAZjQvb7CERarPdk JM6xxBPlMZfzIi9mPVJ5FeHoXe MaCBmuR4YtRXTbzfsssortzBD8 OYYvCCZguR53Th6thWhnJDPh zIFMzR9izxyop6lmyvedFwObKA BfJFt7VVg3RAVlxCqiKkUzMKD3 NmJ9BFR2yLWgzG6qkSzfznls qR0yB1MrNMGfhgehQl90aL8pLv ZfKpN6TClhZns+QkVSQkVSSUNL MAPZCtCVZzRPKN94MP94nQNc t6Q8bYT6Z6BoMHOeicrlebnrhM A0QZFpKARfgQ11cGRoJIseAz4i w1N9z702ZNMkOMYfqX83Yt5k dOmoUMDcfCFIhV5brirua4mkqy bxMbTaEMGzVPl4RQl0AUSyiVnz IhAbWBH7BwJ8WYB9uBKdpB2p jNlzdbbmqA2cPxp+MDgvMzEvMT i1YNahcEW+UTPcETS7nOzoZNxu ZURwxA8oEIReX1f4EwEkNkW3 RDnhX9EvVTUliguzCi65eP0xKn YrIoY2LXhxU0EztqV3YYUkkLGn WYmrBLP2D58tu9A8WSIfTKLl RAH8iRU4oP4fyFpieclhvTDilV sghdWurPlgMMizOElgZ490JIMu nZplYiGhVJceVRSePN13GV10 zIWlw1J3iIC9U1YoVIHvgwgnrr lclRA9EQWpIEFfoJ79jYOpHYxt Ha0ny7I0p239HPXwRFLinO48 Km9eaOerELXrnUQCnK4ubvcby6 tgzyqlBmLeOADcXMq3JQu6DXKw xSwmIyFvGYW7LkL9YBS6rYId zG3deYnqsyauaS9sBia+TWFsZT wvdGQ+OVFaBPU7xHzzSHcuCWAd wD1dMVWzJ7e0CbYgVbO4OVdc M1CcKWDmoqflNu53rM3lBaThDa A5BSaaF7LwmyU9EVUlnNAsCFyy EZJ6J60jg5I8OPVmOGYsCWE3 yKR1cT2dbGmbspydoETwkAyqyn MicBlsJJurKWxyI817GXVjhJpl Cg30gJLseGapqzA7N6IpBysl dHI+DY09LAYlIG21mYVtbXKpu8 woaLp8WwRlSMHfBIS3vCqdDNee v1VsSWPgW79uxNGsd5E1VGRd bMytfFUhPoIvzAY6jC6bDCwovu mry8wkqdqrOohfl1gqgt56aX67 V69eDQsiLBBrROIcOWQcLFXs uNmtpx4cdN4uMh0+DVAviJY6kD Y3aJ9bQnDhWyC8LJxeN859XdZw jCBaRmeev6mhf4xcoUy3EaVa YTXsjpHwkYkwMNH1d4AsIj40B1 9sIHdpZHRoPSIyMCUiIHZhbGln jo1beD4zUk6+DR1kx3xavw33 eW49fWB+XCDzWAB1mCqbPIcgSS QcbE9rRJclLkU4RUOwAsEquX90 rEHjEWlkPm9cvLtsoVxtTJ0l AZZuucvnb782NcSdb7sgFXTizH MvGHqjNFP1F95nm1E8OFNoXAGz DTL6vXM4hR1jwVatmrwgfXMm cUyucxNcuAlbSIogFZzxT684JL TukAhvBnSglODeS2idhkLYMX6r OjwvdGQ+UUPcSRO4zWibGNoa EGBknJ1tIJScG2k8OfPgZpK5WY gkY0KnxkI7KREyfXMqEZChoHCQ eW2xeoato5ntqdlhLnPzLZHx OBo5QKh4DBAzkYixAiLbDPQ6Nr N2LEN7lEKwwQ6gqPiqkndpbR0e Oyc+RklOOjwvdGQ+PHRkIHN0 wNhsWWmgHQNrlT0sWYHqP9l8Uw UmMhY4ZVcmA5FrwkT5BXTmxNMh DUBzvRTWgH5hoawhh9ybzyys MqRsUPEtVJg9MGu3QLDjaWxeCx XhMZF5TiH9GSC2yKQphU3jxOjs hadlqF0hRwy+TVJOOjwvdGQ+ SIFiZSW8nTafPWcbFUObkT9xMH VhU4d3ZvFxPsI0LJlmR1XpjyA4 ZONhyPAcFLXifOEJrV1jkztv j7kiywpnBlMfBXThMFt5TOj2II XckRbrQdOwUAU2LrO5RUO2sMHt iI0jfRliamrfjL3tTkp+UGF5 VEN9NE99LT15E7BbQmhpbQXalC U+PHRhYmxlIHdpZHRoPScxMDAl HyPjcZryTG0fIp5nSEQlJBAd bGxh (more content not included)... Normal [facility] Consent for Procedure/Surger yon 12-22-2022 Consent for Procedure/Surgery [id number]#[id number]:127 [facility] Consent for Treatmenton 12-03 Consent for Treatment [id number]#1.00CD:127 [facility] H&P Updateon 12-22-2022 H&P Update [id number]#1.00CD:127 [facility] Main OR Preoperative Recordo n 12-22-2022 Main OR Preoperative Record PreOp Document Type FT Summary Primary Physician: Aubrie Stauffer MD Finalized Date/Time: 12/22/22 14:22:36 Pt. Name: ASHOK DE LEON /Sex: 1960 Male Med Rec #: [id number] Physician: Aubrie Stauffer MD Financial #: [id number] Pt. Type: A Room/Bed: [place] [address] Admit/Disch: 12/22/22 09:46:20 - Institution: Case Times PreOp FT Pre-Care Text: Verifies consent for planned procedure, identifies individual values and wishes concerning care, includes family members in perioperative teaching Entry 1 Patient Times. In Pre Surgery 12/22/22 09:55:00 Out Pre Surgery 12/22/22 13:43:00 Outcomes Met? Yes Last Modified By: Maryellen Estrada 12/22/22 14:22:34 Post-Care Text: The patient participates in decisions affecting his or her perioperative plan of care Finalized By: Maryellen Estrada Document Signatures Signed By: Maryellen Estrada 12/22/22 14:22 Normal [facility] Operative Reporton Operative Report Patient: ASHOK DE LEON Age: 62 years Sex: Male : 1960 Associated Diagnoses: None Author: Aubrie Stauffer MD Procedure Procedure Date: 12/22/2022. Confirmed: patient, procedure, site, safety procedures followed. Performed by: Aubrie Stauffer MD, Rossana Goel CRNA, Ephraim Sahu MD. Type of procedure: 1. Robotic assisted laparoscopic radical prostatectomy 2. Bladder neck reconstruction. Supervised by: MABEL BAH MD. Physical Exam: no relative contraindications found, vital signs. Informed consent: signed by patient. Indication: 62-year-old male with low risk clinical T1c grade group 1 prostate adenocarcinoma diagnosed by MRI fusion transperineal biopsy 08/06/2022 Dr. Jane. Initial PSA 9.2. 79 cc volume prostate on MRI with 2 PI-RADS 4 lesions at the right and left peripheral zone. Due to history of multiple biopsies now with progression he elected to proceed with definitive surgical treatment after discussion of risks and benefits and alternative options. Risks were discussed including but not limited to bleeding, pain, infection, injury to surrounding organs such as bowel/bladder, urine leak, incontinence, erectile dysfunction, DVTs, anesthesia risks, positive margins, and need for additional procedures. . Findings: Successful bilateral nerve sparing radical prostatectomy. Large, vascular prostate with global intravesical mass effect, necessitating bladder neck reconstruction. . Procedure tolerated: well. Specimen: sent to pathology, 1. Periprostatic fat 2. Prostate and seminal vesicles en bloc 3. Right base margin. Complications: None. Preoperative diagnosis: Prostate adenocarcinoma Postoperative diagnosis: Same medical record assistant: Darian Schmidt DIRECTOR OF VALUATION, Tammy Win RN, Cristina Bal DIRECTOR OF VALUATION, Reema Posada CNOR/INDEX EDITOR Anesthesia: General ET tube Antibiotics: Ancef 2 g IV 5000 units of subcutaneous heparin given preop EBL: 50 ml Fluids: 2 L lactated Ringer's UOP: Unable to accurately measure, at least 200 cc Procedure in Detail: Upon power up, the [employer] Xi robotic system went through the self-testing process. The optics black and white balanced, as well crossbar calibration of the stereo endoscopes was completed. We draped the robotic arms in sterile plastic coverings, preparing them for later docking after the patient positioning was completed. The patient was brought into the OR and sequential compression devices were placed bilaterally. After induction of general anesthesia we placed the patient in supine, mild frog-leg position with padding of all the pressure points, shoulders, back, legs, and arms. We secured the patient to the table using Pagazzi Pad, safety straps and tilt test was performed to ensure patient remained in position. An operative timeout was performed, confirming the patient's identity, procedure and safety checks, and all present agreed to proceed. After the patient was prepped and draped in a sterile fashion, an 18Fr arndt catheter was inserted and placed to gravity drainage. IV antibiotics were administered prior to incision. A 1 cm vertical midline incision about 2 cm above the umbilicus was created sharply and carried through the subcutaneous tissue. Pneumo-peritoneum was created using veress needle introduced through this incision, confirming low pressures for appropriate placement. After four-quadrant insufflation was achieved, the first 8 mm robotic port was placed addison-umbilical for the 0 degree scope. The remaining ports were placed using the lens to visualize the abdominal wall. Three 8mm robotic ports and one diploma medical assistant port were used in total including a 12 mm air seal diploma medical assistant port in the right lower quadrant. The patient was placed in 25 degree Trendelenburg. Following docking, the team evaluated the robotic arms and tower in relation to the patients legs and hands to avoid compression by the system. Prograsp, monopolar scissors and bipolar [place] forceps were used as our working instruments. At this point I went to the surgeon console to start the dissection. The peritoneal cavity was inspected and there is no evidence of trauma from our port placement. Minimal lysis of adhesions was done to the sigmoid colon to be able to retract the bowel from the pelvis. Starting with the posterior dissection, the base of the bladder at pouch of Mikey was incised, taking care to stay superior to the perirectal fat. This space was developed bluntly with select bipolar electrocautery until the seminal vesicles and vas deferens were encountered. This was done with careful attention to cautery near the tips of the SV to avoid thermal damage to the neurovascular bundle. The vas deferens was dissected out and transected. We remained above Denoveiller's fascia during this portion of the posterior dissection. Next the bladder was taken down starting lateral to the medial umbilical ligament down to the level of the vas. The retropubic space was then developed. This wa (more content not included)... [facility] Comment on above: Result Comment: Elec tronically Signed By: Eh WESTBROOK, Aubrie Tripathi\.br\Date and Time Signed: 12/22/22 20:24 EDT Physician Orderon 12-22-2022 Physician Order [id number] Normal [facility] Progress Note-Physicianon Progress Note-Physician Patient: ASHOK DE LEON Age: 62 years Sex: Male : 1960 Associated Diagnoses: None Author: Luis Alberto WESTBROOK, Ephraim Oakes Preoperative Information Anesthesia Preop Info: Time patient last ate or drank 12/21/2022 21:00:00. Anesthesia history: Patient history: None. Family history+: None. Informed consent: Signed by patient. Review of Systems Eye: Negative. Ear/Nose/Mouth/Throat: Negative. Respiratory: Negative. Cardiovascular: Negative. Gastrointestinal: Negative. Genitourinary: Negative. Hematology/Lymphatics: Negative. Endocrine: Negative. Musculoskeletal: Negative. Neurologic: Negative. Health Status Allergies: Allergies (1) Active Reaction No Known Allergies None Documented Current medications: Home Medications (4) Active Celebrate Multivitamin 1 tab(s), Chewed, Daily Fish Oil 1000 mg oral capsule 1,000 mg = 1 cap(s), Oral, Daily niacin 100 mg oral tablet 100 mg = 1 tab(s), Oral, Daily tamsulosin 0.4 mg Cap 0.4 mg = 1 cap(s), Oral, Daily , Medications (2) Active Scheduled: (1) ceFAZolin + Sodium Chloride 0.9% Minibag 50 mL 2 gram 1 EA, IV Piggyback, Once Continuous: (1) Lactated Ringers 1,000 mL 1,000 mL, IV, 150 mL/hr PRN: (0) Problem list: All Problems BMI 27.0-27.9,adult / SNOMED CT 3198176830 / Confirmed BPH with urinary obstruction / SNOMED CT 1465701186 / Confirmed Color blind / SNOMED CT 696990960 / Confirmed Elevated PSA / SNOMED CT 3900600366 / Confirmed Hematuria / SNOMED CT 004777777 / Confirmed Nodular prostate / SNOMED CT 6603746304 / Confirmed Prostate cancer / SNOMED CT 8651260883 / Confirmed Prostatitis / SNOMED CT 46621534 / Confirmed, Active Problems (8) BMI 27.0-27.9,adult BPH with urinary obstruction Color blind Elevated PSA Hematuria Nodular prostate Prostate cancer Prostatitis Histories Social History Social & Psychosocial Habits Alcohol 12/02/2022 Risk Assessment: Denies Alcohol Use Substance Abuse 12/02/2022 Risk Assessment: Denies Substance Abuse Tobacco 02/23/2022 Tobacco Use: Never (less than 100 in l Type: Cigarettes 12/02/2022 Risk Assessment: Denies Tobacco Use . Physical Examination Vital Signs 12/22/2022 10:12 EDT Heart Rate Monitored 81 bpm Systolic Blood Pressure 146 mmHg HI Diastolic Blood Pressure 74 mmHg Mean Arterial Pressure, Monitered 98 mmHg 12/22/2022 10:11 EDT Heart Rate Monitored 77 bpm SpO2 99 % 12/22/2022 10:10 EDT Systolic Blood Pressure 151 mmHg HI Diastolic Blood Pressure 71 mmHg Mean Arterial Pressure, Monitered 98 mmHg 12/22/2022 10:10 EDT Temperature Oral 36.8 DegC 12/22/2022 10:10 EDT Respiratory Rate 18 br/min 12/22/2022 10:10 EDT Apical Heart Rate 86 bpm Airway: Mallampati classification: II (soft palate, fauces, uvula visible). Distance: Thyromental, Adequate. Respiratory: Lungs are clear to auscultation, Symmetrical chest wall expansion. Cardiovascular: Regular rhythm, Good pulses equal in all extremities. Gastrointestinal: Soft, Non-tender. Plan [place] Citizen [employer] of Anesthesiologists (ASA) physical status classification: Class I. Anesthetic Preoperative Plan: Anesthesia General. Normal [facility] Comment on above: Result Comment: Elec tronically Signed By: Luis Alberto WESTBROOK, Ephraim Oakes\.br\Date and Time Signed: 12/22/22 11:47 EDT eGFRon 12-22-2022 GFR/1.73 sq M.predicted among blacks MDRD (S/P/Bld) [Vol rate/Area] mL/min/{1.73_m2} Normal >=59 [facility] Comment on above: Order Comment: Order added by Discern Expert. Result Comment: eGFR is race adjusted. AA=. Performed By: #### 1 [id number], 3935264, 9014067, 7039732 #### [facility] [address] [place] [address] GFR/1.73 sq M.predicted among non-blacks MDRD (S/P/Bld) [Vol rate/Area] 51 mL/min/1.73 m2 Low >=59 [facility] Comment on above: Order Comment: Order added by Discern Expert. Result Comment: Machine Operator Helper any kidney disease could be indicated at eGFR's of less than 60 mL/min/1.73m2. Kidney failure is indicated at less than 15 mL/min/1.73m2. Performed By: #### 1 3901129, 4348141, 6966497, 2859170 #### [facility] [address] [place] [address] Pre-Certification Formon Pre-Certification Form [id number]:127 Normal [facility] Auto Diffon 12-02-2022 Basophils/100 WBC (Bld) 1.1 % Normal 0.0-2.0 [facility] Comment on above: Order Comment: Order Added by Discern Expert. Performed By: #### 1 [id number], 0712072, 02250246, 4484012, 9742916 ####[address] [place] [address] Basophils/Leukocytes Auto (Bld) [Pure # fraction] 0.0 E9/L Normal 0.0-0.2 [facility] Comment on above: Order Comment: Order Added by Discern Expert. Performed By: #### 1 5905166, 1344140, 71694899, 0372389, 0240346 ####[address] [place] [address] Eosinophils/100 WBC (Bld) 5.6 % Normal 0.0-8.0 [facility] Comment on above: Order Comment: Order Added by Discern Expert. Performed By: #### 1 4601369, 0498127, 54417070, 2081864, 1113055 ####[address] [place] [address] Eosinophils/Leukocytes Auto (Bld) [Pure # fraction] 0.2 E9/L Normal 0.0-0.5 [facility] Comment on above: Order Comment: Order Added by Discern Expert. Performed By: #### 1 8754614, 8335332, 12297374, 6557168, 4359303 ####[address] [place] [address] Lymphocytes/100 WBC (Bld) 32.8 % Normal 14.0-50.0 [facility] Comment on above: Order Comment: Order Added by Mitali Expert. Performed By: #### 1 1583780, 4814321, 18836377, 2815419, 7851265 ####[address] [address] Lymphocytes/Leukocytes Auto (Bld) [Pure # fraction] 1.4 E9/L Normal 1.0-4.0 [facility] Comment on above: Order Comment: Order Added by Discern Expert. Performed By: #### 1 4728721, 0540079, 80600084, 6717434, 9284698 ####[facility] [address] [place] [address] Monocytes/100 WBC (Bld) 7.4 % Normal 4.0-14.0 [facility] Comment on above: Order Comment: Order Added by Discern Expert. Performed By: #### 1 4570757, 9061852, 87435647, 8946059, 9062379 ####[address] [place] [address] Monocytes/Leukocytes Auto (Bld) [Pure # fraction] 0.3 E9/L Normal 0.2-1.0 [facility] Comment on above: Order Comment: Order Added by Discern Expert. Performed By: #### 1 3943791, 9842574, 71647778, 1895213, 3757470 ####[address] [address] Neutrophils/100 WBC (Bld) 53.1 % Normal 36.0-75.0 [facility] Comment on above: Order Comment: Order Added by Discern Expert. Performed By: #### 1 2706979, 4234281, 07407906, 5095214, 4074006 ####[address] [place] [address] Neutrophils/Leukocytes Auto (Bld) [Pure # fraction] 2.3 E9/L Normal 2.0-7.5 [facility] Comment on above: Order Comment: Order Added by Discern Expert. Performed By: #### 1 5864450, 4116003, 79640163, 6173052, 0563155 ####[address] [place] [address] BMPon 12-02-2022 Anion gap [Moles/Vol] 10 mmol/L Normal 6-16 [facility] Comment on above: Performed By: #### 1 3180928, 3592033, 22781598, 0404339, 4424634 ####[facility] [address] [place] [address] Calcium [Mass/Vol] 9.4 mg/dL Normal 8.9-11.1 [facility] Comment on above: Performed By: #### 1 8948997, 2119685, 80096500, 6849369, 6492847 ####[facility] [address] [place] [address] Chloride [Moles/Vol] 103 mmol/L Normal 101-111 [facility] Comment on above: Performed By: #### 1 4261675, 7351514, 42089910, 1588888, 1159610 ####[facility] [address] [place] [address] CO2 [Moles/Vol] 29 mmol/L Normal 21-31 [facility] Comment on above: Performed By: #### 1 5836583, 6511193, 34092963, 2289587, 0807366 ####[facility] [address] [place] [address] Creatinine [Mass/Vol] 1.2 mg/dL Normal 0.5-1.3 [facility] Comment on above: Performed By: #### 1 8769430, 2482340, 40800565, 7438913, 9820854 ####[facility] [address] [place] [address] Glucose [Mass/Vol] 124 mg/dL Normal 55-199 [facility] Comment on above: Result Comment: If t his glucose result represents a fasting glucose, interpretation should refer to the following reference range: 55-99 mg/dL Performed By: #### 1 3111430, 3090455, 51421123, 2716306, 3084858 ####[facility] [address] [facility] [place] [address] Potassium [Moles/Vol] 4.0 mmol/L Normal 3.5-5.3 [facility] Comment on above: Performed By: #### 1 9544286, 3483099, 46099716, 6731942, 8759567 ####[facility] [address] [place] [address] Sodium [Moles/Vol] 138 mmol/L Normal 135-145 [facility] Comment on above: Performed By: #### 1 1954511, 4571685, 15961206, 0235714, 3227229 ####[facility] [address] [place] [address] Urea nitrogen [Mass/Vol] 19 mg/dL Normal 5-21 [facility] Comment on above: Performed By: #### 1 5827490, 4735305, 58110182, 8244642, 2260239 ####[facility] [address] [place] [address] Urea nitrogen/Creatinine [Mass ratio] 16 No Units Normal 10-20 [facility] Comment on above: Performed By: #### 1 3887998, 0885444, 07874905, 6253976, 3901696 ####[facility] [address] [place] [address] CBC w/ Auto Diffon 3 Erythrocyte distribution width (RBC) [Ratio] 13.5 % Normal 10.9-14.2 [facility] Comment on above: Performed By: #### 1 1081980, 8936321, 45835078, 3755389, 7486865 #### [facility] [address] [place] [address] Hematocrit (Bld) [Volume fraction] 39.9 % Normal 37.7-49.0 [facility] Comment on above: Performed By: #### 1 6395269, 5151529, 78563618, 4479227, 2110054 #### [facility] [address] [place] [address] Hemoglobin (Bld) [Mass/Vol] 13.1 g/dL Low 13.5-17.5 [facility] Comment on above: Performed By: #### 1 9528536, 1450251, 64305300, 0091707, 1062337 #### [facility] [address] [place] [address] MCH (RBC) [Entitic mass] 30.0 pg Normal 27.0-34.0 [facility] Comment on above: Performed By: #### 1 7912172, 7053775, 10000663, 7924294, 8625562 #### [facility] [address] [place] [address] MCHC (RBC) [Mass/Vol] 32.8 g/dL Normal 31.4-36.0 [facility] Comment on above: Performed By: #### 1 9123447, 7753505, 96200387, 6272907, 5643168 #### [facility] [address] [place] [address] MCV (RBC) [Entitic vol] 91.4 fL Normal 80.0-100.0 [facility] Comment on above: Performed By: #### 1 7472244, 8746896, 54753070, 4934044, 4175031 #### [facility] [address] [place] [address] Platelet mean volume (Bld) [Entitic vol] 7.9 fL Normal 6.4-10.8 [facility] Comment on above: Performed By: #### 1 2111800, 7379788, 63047129, 1858306, 2997123 #### [facility] [address] [place] [address] Platelets (Bld) [#/Vol] 269.0 E9/L Normal 150.0-500. 0 [facility] Comment on above: Performed By: #### 1 2949641, 6771693, 96812854, 7077620, 1977259 #### [facility] [address] [place] [address] RBC (Bld) [#/Vol] 4.4 E12/L Normal 4.3-5.9 [facility] Comment on above: Performed By: #### 1 7188625, 0335771, 64443682, 6751344, 0034922 #### [facility] [address] [place] [address] WBC corrected for nucl RBC Auto (Bld) [#/Vol] 4.3 E9/L Normal 4.0-11.0 [facility] Comment on above: Performed By: #### 1 8396705, 1852642, 05077241, 8993863, 1301325 #### [facility] [address] [place] [address] CHEMISTRYOrdered By: SYSTEM SYSTEM on 12-02-2022 Anion gap [Moles/Vol] 10 mmol/L Normal 6 - 16 mEq/L [facility] Calcium [Mass/Vol] 9.4 mg/dL Normal 8.9 - 11. 1 mg/dL [facility] Chloride [Moles/Vol] 103 mmol/L Normal 101 - 1 11 mmol/L [facility] CO2 [Moles/Vol] 29 mmol/L Normal 21 - 31 mmol/L [facility] Creatinine [Mass/Vol] 1.2 mg/dL Normal 0.5 - 1.3 mg/dL [facility] GFR/1.73 sq M.predicted among blacks MDRD (S/P/Bld) [Vol rate/Area] mL/min/1.73 m2 Normal >=59mL/min /1.73 m2 [facility] Chem S GFR/1.73 sq M.predicted among non-blacks MDRD (S/P/Bld) [Vol rate/Area] mL/min/1.73 m2 Normal >=59mL/min /1.73 m2 [facility] Chem S Glucose [Mass/Vol] 124 mg/dL Normal 55 - 199 mg/dL [facility] Potassium [Moles/Vol] 4.0 mmol/L Normal 3.5 - 5.3 mmol/L [facility] Sodium [Moles/Vol] 138 mmol/L Normal 135 - 145 mmol/L [facility] Urea nitrogen [Mass/Vol] 19 mg/dL Normal 5 - 21 mg/dL [facility] Urea nitrogen/Creatinine [Mass ratio] 16 mg/mg Normal 10 - 20 [facility] COAGULATIONOrdered By: Sade Ngo on 12-02-2022 aPTT Coag (PPP) [Time] 37.0 s High 25.1 - 36.5 second(s) [facility] Auto Coag INR Coag (PPP) [Relative time] 1.1 {INR} Invalid Interpretation Code [facility] Auto Coag PT Coag (PPP) [Time] 12.1 s Normal 9.4 - 1 2.5 second(s) [facility] Auto Coag Consent for Treatmenton Consent for Treatment [id number]:127 Normal [facility] HEMATOLOGYOrdered By: SYSTEM SYSTEM on 12-02-2022 Basophils/100 WBC (Bld) 1.1 % Normal 0.0 - 2.0 % [facility] HemeAutoSS Basophils/Leukocytes Auto (Bld) [Pure # fraction] 0.0 E9/L Normal 0.0 - 0.2 E9/L [facility] HemeAutoSS Eosinophils/100 WBC (Bld) 5.6 % Normal 0.0 - 8.0 % [facility] HemeAutoSS Eosinophils/Leukocytes Auto (Bld) [Pure # fraction] 0.2 E9/L Normal 0.0 - 0.5 E9/L [facility] HemeAutoSS Lymphocytes/100 WBC (Bld) 32.8 % Normal 14.0 - 50.0 % [facility] HemeAutoSS Lymphocytes/Leukocytes Auto (Bld) [Pure # fraction] 1.4 E9/L Normal 1.0 - 4.0 E9/L [facility] HemeAutoSS Monocytes/100 WBC (Bld) 7.4 % Normal 4.0 - 14.0 % [facility] HemeAutoSS Monocytes/Leukocytes Auto (Bld) [Pure # fraction] 0.3 E9/L Normal 0.2 - 1.0 E9/L [facility] HemeAutoSS Neutrophils/100 WBC (Bld) 53.1 % Normal 36.0 - 75.0 % [facility] HemeAutoSS Neutrophils/Leukocytes Auto (Bld) [Pure # fraction] 2.3 E9/L Normal 2.0 - 7.5 E9/L [facility] HemeAutoSS HEMATOLOGYOrdered By: Mary Malagon on 12-02-2022 Erythrocyte distribution width (RBC) [Ratio] 13.5 % Normal 10.9 - 14.2 % [facility] HemeAutoSS Hematocrit (Bld) [Volume fraction] 39.9 % Normal 37.7 - 49.0 % [facility] HemeAutoSS Hemoglobin (Bld) [Mass/Vol] 13.1 g/dL Low 13.5 - 17.5 gm/dL [facility] HemeAutoSS MCH (RBC) [Entitic mass] 30.0 pg Normal 27.0 - 34.0 pg [facility] HemeAutoSS MCHC (RBC) [Mass/Vol] 32.8 g/dL Normal 31.4 - 36.0 gm/dL [facility] HemeAutoSS MCV (RBC) [Entitic vol] 91.4 fL Normal 80.0 - 100.0 fL [facility] HemeAutoSS Platelet mean volume (Bld) [Entitic vol] 7.9 fL Normal 6.4 - 10.8 fL [facility] HemeAutoSS Platelets (Bld) [#/Vol] 269.0 E9/L Normal 150.0 - 500.0 E9/L [facility] HemeAutoSS RBC (Bld) [#/Vol] 4.4 E12/L Normal 4.3 - 5.9 E12/L [facility] HemeAutoSS WBC corrected for nucl RBC Auto (Bld) [#/Vol] 4.3 E9/L Normal 4.0 - 11.0 E9/L [facility] HemeAutoSS PT & PTTon 12-02-2022 aPTT Coag (PPP) [Time] 37.0 second(s) High 25.1-36.5 [facility] Comment on above: Result Comment: Para meter 15 days - 4 weeks 1 - 5 months 6 - 11 months 1 - 5 years 6 - 10 years 11 - 17 years PTT Mean: 35.4 (27.6-45.6) Mean: 33.5 (24.8-40.7) Mean: 32.4 (25.1-40.7) Mean: 31.6 (24.0-39.2) Mean: 31.6 (26.9-38.7) Mean: 31.0 (24.6-38.4) Pediatric Reference ranges were obtained from a study by Bunny Acevedo et al. prepared from 1437 samples obtained at 7 different centers using the same coagulation reagent and instrumentation as [facility]. Currently there are no coagulation studies available worldwide for children to 14 days, and no normal ranges. Heparin therapeutic range (represented by Anti-Factor Xa activity of 0.2 - 0.4 U/mL) corresponds to PTT of 56.6 - 109.0 sec. Performed By: #### 1 4611149, 1664174, 47114922, 1258125, 2381679 ####[facility] [address] [place] [address] INR Coag (PPP) [Relative time] 1.1 {INR} Invalid Interpretation Code [facility] Comment on above: Result Comment: INR results are specifically intended to assess patients stabilized on long-term Anticoagulation therapy suggested INR?s ?Less Intensive Anticoagulation? 2.0 ? 3.0 Conventional Range 3.0 ? 4.5 Performed By: #### 1 5051269, 0713272, 66125743, 9261994, 9704491 ####[facility] [address] [place] [address] PT Coag (PPP) [Time] 12.1 second(s) Normal 9.4-12.5 [facility] Comment on above: Result Comment: 15 d ays - 4 weeks 1 - 5 months 6 -11 months 1 ? 5 years 6 ? 10 years 11 -17 years Mean: 11.2 (9.5 ? 12.6) Mean: 11.0 (9.7 ? 12.8) Mean: 11.0 (9.8 ? 13.0) Mean: 11.3 (9.9 ? 13.4) Mean: 11.7 (10.0 ? 14.6) Mean: 11.8 (10.0 - 14.1) Pediatric Reference ranges were obtained from a study by Bunny Acevedo et al. prepared from 1437 samples obtained at 7 different centers using the same coagulation reagent and instrumentation as [facility]. Currently there are no coagulation studies available worldwide for children to 14 days, and no normal ranges. Performed By: #### 1 9313038, 0516136, 79536348, 9837432, 4642350 ####[facility] [address] [place] [address] UA With Cult Reflexon 2022 Bilirubin Ql (U) Negative Normal Negative [facility] Comment on above: Performed By: #### 1 8719769 ####[address] [place] [address] Clarity (U) CLEAR Normal Clear [facility] Comment on above: Performed By: #### 1 5963250 ####[address] [address] Color (U) YELLOW Normal Yellow [facility] Comment on above: Performed By: #### 1 3109450 ####[address] [address] Epithelial cells.squamous LM.HPF (Urine sed) [#/Area] 0-2 Normal 0-2 [facility] Comment on above: Performed By: #### 1 4690095 ####[address] [address] Glucose Test strip (U) [Mass/Vol] Negative Normal Negative [facility] Comment on above: Performed By: #### 1 6303848 ####[address] [address] Hemoglobin Ql (U) Negative Normal Negative [facility] Comment on above: Performed By: #### 1 8852031 ####[address] [address] Ketones (U) [Mass/Vol] Negative Normal Negative [facility] Comment on above: Performed By: #### 1 7533499 ####[address] [address] Marrero.plasma/Marrero .RBC (Bld) [Mass ratio] 0-3 Normal 0-3 [facility] Comment on above: Performed By: #### 1 9442936 ####[address] [address] Nitrite Ql (U) Negative Normal Negative [facility] Comment on above: Performed By: #### 1 9878493 ####[address] [address] pH (U) 6.5 [pH] Invalid Interpretation Code 5.0-9.0 [facility] Comment on above: Performed By: #### 1 6297143 ####[facility] [address] [place] [address] Protein (U) [Mass/Vol] Negative Normal Negative [facility] Comment on above: Performed By: #### 1 2986142 ####[address] [address] Specific gravity (U) [Rel density] <=1.005 Invalid Interpretation Code 1.005-1.03 0 [facility] Comment on above: Performed By: #### 1 4838587 ####[address] [address] Type of Urine collection method Clean Catch Normal [facility] Comment on above: Performed By: #### 1 8919632 ####[address] [address] Urobilinogen Qn (U) 0.2 {Philip'U}/dL Normal 0.0-1.0 [facility] Comment on above: Performed By: #### 1 4141647 ####[address] [address] WBC Auto Ql (U) Negative Normal Negative [facility] Comment on above: Performed By: #### 1 1592039 ####[address] [address] WBC LM.HPF (Urine sed) [#/Area] 0-5 Normal 0-5 [facility] Comment on above: Performed By: #### 1 6762785 ####[address] [address] URINALYSISOrdered By: Stephie Ngo on 12-02-2022 Bilirubin Ql (U) Negative (12/02/22 3:42 PM) Normal Negative [facility] UA Auto SS Clarity (U) Clear (12/02/22 3:42 PM) Normal Clear [facility] UA Auto SS Color (U) Yellow (12/02/22 3:42 PM) Normal Yellow [facility] UA Auto SS Epithelial cells.squamous LM.HPF (Urine sed) [#/Area] 0-2 /HPF Normal 0-2/HPF [facility] UA Auto SS Glucose Test strip (U) [Mass/Vol] Negative (12/02/22 3:42 PM) Normal Negative [facility] UA Auto SS Hemoglobin Ql (U) Negative (12/02/22 3:42 PM) Normal Negative [facility] UA Auto SS Ketones (U) [Mass/Vol] Negative (12/02/22 3:42 PM) Normal Negative [facility] UA Auto SS Marrero.plasma/Marrero .RBC (Bld) [Mass ratio] 0-3 /HPF Normal 0-3/HPF [facility] UA Auto SS Nitrite Ql (U) Negative (12/02/22 3:42 PM) Normal Negative [facility] UA Auto SS pH (U) 6.5 *NA* (12/02/22 3:42 PM) Invalid Interpretation Code 5.0 - 9.0 [facility] UA Auto SS Protein (U) [Mass/Vol] Negative (12/02/22 3:42 PM) Normal Negative [facility] UA Auto SS Specific gravity (U) [Rel density] <=1.005 *NA* (12/02/22 3:42 PM) Invalid Interpretation Code 1.005 - 1.030 [facility] UA Auto SS UA Spec Desc Clean Catch (12/02/22 3:42 PM) Normal [facility] UA Auto SS Urobilinogen Qn (U) 0.0755518 {Philip'U}/dL Normal 0.0 - 1.0 EU/dL [facility] UA Auto SS WBC Auto Ql (U) Negative (12/02/22 3:42 PM) Normal Negative [facility] UA Auto SS WBC LM.HPF (Urine sed) [#/Area] 0-5 /HPF Normal 0-5/HPF [facility] UA Auto SS XR Chest 2 Viewson 3 XR Chest 2 Views Exam Date/Time: 12/02/2022 15:54 EST Reason for Exam: P.A.T. Report IMPRESSION: NO EVIDENCE OF ACTIVE CHEST DISEASE. CLINICAL HISTORY: P.A.T.. COMMENT: The heart is normal in size. The mediastinum is unremarkable. The lungs appear clear. No infiltration nor pleural effusion is evident. Ordering Provider: El Dejesus FINAL REPORT Dictated: 12/02/2022 3:57 pm Prem Villanueva M.D. Signed (Electronic Signature): 12/02/2022 3:57 pm Signed by: Prem Villanueva M.D. Transcribed by: TRACIE Technologist: CARINA Technical Comments Radiation Dose: Ka,r in mGy = na DAP = na Normal [facility] eGFRon 12-02-2022 GFR/1.73 sq M.predicted among blacks MDRD (S/P/Bld) [Vol rate/Area] mL/min/{1.73_m2} Normal >=59 [facility] Comment on above: Order Comment: Order added by Discern Expert. Result Comment: eGFR is race adjusted. AA=. Performed By: #### 1 8079404, 5991089, 38804044, 3179402, 1280067 ####[facility] [address] [place] [address] GFR/1.73 sq M.predicted among non-blacks MDRD (S/P/Bld) [Vol rate/Area] mL/min/{1.73_m2} Normal >=59 [facility] Comment on above: Order Comment: Order added by Discern Expert. Result Comment: Machine Operator Helper any kidney disease could be indicated at eGFR's of less than 60 mL/min/1.73m2. Kidney failure is indicated at less than 15 mL/min/1.73m2. Performed By: #### 1 6842643, 1714090, 28215855, 0962441, 7734751 ####[facility] [address] [place] [address] Activated partial thrombopla stin time (aPTT) in platelet poor plasma by coagulation aOrdered By: Harshad Jane on 09-15-2022 aPTT Coag (PPP) [Time] 35.3 s 25.1-36.5 Fi [facility] Basophils Auto (Bld) [#/Vol] Ordered By: Harshad Jane on 09-15-2022 Basophils (Bld) [#/Vol] 0.1 10*3/uL 0.0-0.2 [facility] Basophils/100 WBC Auto (Bld) Ordered By: Harshad Jane on 09-15-2022 Basophils/100 WBC (Bld) 1.9 % . [facility] Creatinine and Glomerular fi ltration rate.predicted panel (S/P/Bld)Ordered By: Harshad Jane on 09-15-2022 Creatinine [Mass/Vol] 1.06 mg/dL 0.64-1.27 [facility] Eosinophils Auto (Bld) [#/Vo l]Ordered By: Harshad Jane on 09-15-2022 Eosinophils (Bld) [#/Vol] 0.2 10*3/uL 0.0-0.45 [facility] Eosinophils/100 WBC Auto (Bl d)Ordered By: Harshad Jane on 09-15-2022 Eosinophils/100 WBC (Bld) 3.8 % . [facility] Erythrocyte distribution wid th Auto (RBC) [Ratio]Ordered By: Harshad Jane on 09-15-2022 Erythrocyte distribution width (RBC) [Ratio] 13.8 % 12.0-14.8 [facility] Estimated glomerular filtrat ion rate (GFR) non- AmericanOrdered By: Harshad Jane on 09-15-2022 GFR/1.73 sq M.predicted among non-blacks MDRD (S/P/Bld) [Vol rate/Area] > 60 mL/Min [facility] Hematocrit Auto (Bld) [Volum e fraction]Ordered By: Harshad Jane on 09-15-2022 Hematocrit (Bld) [Volume fraction] 40.9 % 38.8-50.0 [facility] Hemoglobin [Mass/volume] in BloodOrdered By: Harshad Jane on 09-15-2022 Hemoglobin (Bld) [Mass/Vol] 13.5 g/dL 13.0-17.0 [facility] Laboratory - CoagulationOrde red By: Harshad Jane on 09-15-2022 PT Coag (PPP) [Time] 12.3 s 9.0-12.9 [facility] Leukocytes [#/volume] correc matthieu for nucleated erythrocytes in Blood by Automated counOrdered By: Harshad Jane on 09-15-2022 WBC corrected for nucl RBC Auto (Bld) [#/Vol] 4.5 10*3/uL 4.1-10.5 [facility] Lymphocytes Auto (Bld) [#/Vo l]Ordered By: Harshad Jane on 09-15-2022 Lymphocytes (Bld) [#/Vol] 1.4 10*3/uL 1.00-4.8 [facility] Lymphocytes/100 WBC Auto (Bl d)Ordered By: Harshad Jane on 09-15-2022 Lymphocytes/100 WBC (Bld) 30.1 % . [facility] MCH Auto (RBC) [Entitic mass ]Ordered By: Harshad Jane on 09-15-2022 MCH (RBC) [Entitic mass] 29.8 pg 27.5-35.2 [facility] MCHC Auto (RBC) [Mass/Vol]Or dered By: Harshad Jane on 09-15-2022 MCHC (RBC) [Mass/Vol] 33.0 g/dL 32.5-35.6 [facility] MCV Auto (RBC) [Entitic vol] Ordered By: Harshad Jaen on 09-15-2022 MCV (RBC) [Entitic vol] 90.2 fL 83.5-101 [facility] Monocytes Auto (Bld) [#/Vol] Ordered By: Harshad Jane on 09-15-2022 Monocytes (Bld) [#/Vol] 0.3 10*3/uL 0.0-0.8 [facility] Monocytes/100 WBC Auto (Bld) Ordered By: Harshad Jane on 09-15-2022 Monocytes/100 WBC (Bld) 5.7 % . [facility] Neutrophils Auto (Bld) [#/Vo l]Ordered By: Harshad Jane on 09-15-2022 Neutrophils (Bld) [#/Vol] 2.7 10*3/uL 1.8-7.7 [facility] Neutrophils/100 WBC Auto (Bl d)Ordered By: Harshad Jane on 09-15-2022 Neutrophils/100 WBC (Bld) 58.5 % . [facility] No Panel InformationOrdered By: Harshad Jane on 09-15-2022 Estimated GFR () > 60 mL/Min [facility] Comment on above: GFR estimated refere nce range: According to KDOQI guidelines, <60 ml/min/1.73m2 is sufficient to diagnose a patient with chronic kidney disease. Pharmacy Creatinine Clearance (Chem N/A [facility] Nucleated erythrocytes [Pres ence] in Blood by Automated countOrdered By: Harshad Jane on 09-15-2022 Nucleated RBC Auto Ql (Bld) 0.2 /100{WBC} 0-0.5 [facility] Platelet mean volume Auto (B ld) [Entitic vol]Ordered By: Harshad Jane on 09-15-2022 Platelet mean volume (Bld) [Entitic vol] 8.0 fL 6.6-10.1 [facility] Platelet poor plasma interna tional normalized ratio (INR) by coagulation assay (relatOrdered By: Harshad Jane on 09-15-2022 INR Coag (PPP) [Relative time] 1.1 {INR} [facility] Comment on above: INR Therapeutic Rang e A) Pre- and Peroperative OAT started two weeks before surgery. NOT HIP SURGERY: 1.5 - 2.5 HIP SURGERY: 2 - 3B) Primary and secondary prevention of venous THROMBOSIS: 2 - 3C) Active venous thrombosis, pulmonary embolismand prevention of recurrent venous thrombosis: 2 - 3D) Prevention of arterial thromboembolismincluding patients with mechanical heart valves: 3 - 4.5 Platelets Auto (Bld) [#/Vol] Ordered By: Harshad Jane on 09-15-2022 Platelets (Bld) [#/Vol] 276 10*3/uL 150-450 [facility] RBC Auto (Bld) [#/Vol]Ordere d By: Harshad Jane on 09-15-2022 RBC (Bld) [#/Vol] 4.53 10*6/uL 3.90-5.60 [facility] Serum or plasma anion gap de terminationOrdered By: Harshad Jane on 09-15-2022 Anion gap [Moles/Vol] 16.2 mmol/L 6.0-15.0 [facility] Serum or plasma calcium roxane urement (mass/volume)Ordered By: Harshad Jane on 09-15-2022 Calcium [Mass/Vol] 10.0 mg/dL 8.2-10.2 [facility] Serum or plasma chloride jose antonio surement (moles/volume)Ordered By: Harshad Jane on 09-15-2022 Chloride [Moles/Vol] 98 mmol/L 95-114 [facility] Serum or plasma glucose roxane urement (mass/volume)Ordered By: Harshad Jane on 09-15-2022 Glucose [Mass/Vol] 87 mg/dL 70-100 [facility] Comment on above: ADA recommended refe rence rangeRandom Glucose Reference Range is dependent on time and content of last meal. Glucose of more than 200 mg/dL in a nonstressed, ambulatory subject supports the diagnosis of Diabetes Mellitus. Serum or plasma potassium me asurement (moles/volume)Ordered By: Harshad Jane on 09-15-2022 Potassium [Moles/Vol] 4.1 mmol/L 3.5-5.1 [facility] Serum or plasma sodium measu rement (moles/volume)Ordered By: Harshad Jane on 09-15-2022 Sodium [Moles/Vol] 140 mmol/L 136-146 [facility] Serum or plasma total carbon dioxide measurement (moles/volume)Ordered By: Harshad Jane on 09-15-2022 CO2 [Moles/Vol] 29.9 mmol/L 22.0-30.0 [facility] Serum or plasma urea nitroge n measurement (mass/volume)Ordered By: Harshad Jane on 09-15-2022 Urea nitrogen [Mass/Vol] 11 mg/dL 9-23 [facility] WBC Auto (Bld) [#/Vol]Ordere d By: Harshad Jane on 09-15-2022 WBC (Bld) [#/Vol] 4.5 10*3/uL 4.1-10.5 [facility] Creatinine (Bld) [Mass/Vol]O rdered By: Harshad Jane on 09-02-2022 Creatinine [Mass/Vol] 1.2 mg/dL 0.6-1.3 [facility] Comment on above: ER/ESD physician is notified/shown all ISTAT results.Critical values may be confirmed by laboratory testing ifdeemed necessary by ER attending doctor. No Panel InformationOrdered By: Harshad Jane on 09-02-2022 POC Estimated GFR > 60 [facility] Comment on above: GFR estimated refere nce range: According to KDOQI guidelines, <60 ml/min/1.73m2 is sufficient to diagnose a patient with chronic kidney disease. POC Estimated GFR Non- Amer > 60 [facility] PSA, FREE AND TOTAL RATIOon 08-02-2022 % Free PSA 11.3 % Normal [facility] Comment on above: Result Comment: The table below lists the probability of prostate cancer for men with non-suspicious BOYD results and total PSA between 4 and 10 ng/mL, by patient age (Sam et al, CLAY 1998, 279:1542). % Free PSA 50-64 yr 65-75 yr 0.00-10.00% 56% 55% 10.01-15.00% 24% 35% 15.01-20.00% 17% 23% 20.01-25.00% 10% 20% >25.00% 5% 9% Please note: Sam et al did not make specific recommendations regarding the use of percent free PSA for any other population of men. Performed By: #### P SAFREE #### [facility] [address] [place] [address] Dr. Ofelia Tirado Prostate specific Ag [Mass/Vol] 7.8 ng/mL Critically high 0.0-4.0 [facility] Comment on above: Result Comment: Fabiola BUTLERIA methodology. . According to the [place] [employer], Serum PSA should decrease and remain at undetectable levels after radical prostatectomy. The AUA defines biochemical recurrence as an initial PSA value 0.2 ng/mL or greater followed by a subsequent confirmatory PSA value 0.2 ng/mL or greater. Values obtained with different assay methods or kits cannot be used interchangeably. Results cannot be interpreted as absolute evidence of the presence or absence of malignant disease. Performed By: #### P SAFREE #### [facility] [address] [place] [address] Dr. Ofelia Tirado PSA, Free 0.88 ng/mL Normal N/A [facility] Comment on above: Result Comment: Fabiola luis ECLIA methodology. Performed By: #### P SAFREE #### [facility] [address] [place] [address] Dr. Ofelia Tirado CBC AUTO DIFFon 08-01-2022 BASO # 0.1 103/ul Normal 0.0-0.1 [facility] Comment on above: Performed By: #### C BC #### [facility] [address] [address] [address] Ofelia Tirado Basophils/100 WBC (Bld) 1.3 % Normal 0.2-2.0 [facility] Comment on above: Performed By: #### C BC #### [facility] [address] [place] [address] Dr. Ofelia Tirado EO # 0.3 103/ul Normal 0.0-0.7 [facility] Comment on above: Performed By: #### C BC #### [facility] [address] [place] [address] Dr. Ofelia Tirado Eosinophils/100 WBC (Bld) 7.4 % Critically high 0.9-7.0 [facility] Comment on above: Performed By: #### C BC #### [facility] [address] [place] [address] Dr. Ofelia Tirado Erythrocyte distribution width (RBC) [Ratio] 13.0 % Normal 11.0-15.0 [facility] Comment on above: Performed By: #### C BC #### [facility] [address] [place] [address] Dr. Ofelia Tirado Hematocrit (Bld) [Volume fraction] 41.5 % Critically low 42.0-54.0 [facility] Comment on above: Performed By: #### C BC #### [facility] [address] [place] [address] Dr. Ofelia Tirado Hemoglobin (Bld) [Mass/Vol] 13.6 g/dL Critically low 14.0-18.0 [facility] Comment on above: Performed By: #### C BC #### [facility] [address] [place] [address] Dr. Ofelia Tirado IG # 0.00 10e3/ul Normal 0.00-0.03 [facility] Comment on above: Performed By: #### C BC #### [facility] [address] [place] [address] Dr. Ofelia Tirado IG % 0.0 % Normal 0.0-0.5 [facility] Comment on above: Performed By: #### C BC #### [facility] [address] [place] [address] Dr. Ofelia Tirado LYMPH # 1.3 103/ul Normal 1.2-3.8 [facility] Comment on above: Performed By: #### C BC #### [facility] [address] [place] [address] Dr. Ofelia Tirado Lymphocytes/100 WBC (Bld) 31.7 % Normal 20.5-60.0 [facility] Comment on above: Performed By: #### C BC #### [facility] [address] [place] [address] Dr. Ofelia Tirado MANUAL DIFF REQ NO Normal [facility] Comment on above: Performed By: #### C BC #### [facility] [address] [place] [address] Dr. Ofelia Tirado MCH (RBC) [Entitic mass] 29.8 pg Normal 25.9-34.0 [facility] Comment on above: Performed By: #### C BC #### [facility] [address] [place] [address] Dr. Ofelia Tirado MCHC (RBC) [Mass/Vol] 32.8 g/dL Normal 29.9-35.2 [facility] Comment on above: Performed By: #### C BC #### [facility] [address] [place] [address] Dr. Ofelia Tirado MCV (RBC) [Entitic vol] 91.0 fL Normal 80.0-94.0 [facility] Comment on above: Performed By: #### C BC #### [facility] [address] [place] [address] Dr. Ofelia Tirado MONO # 0.3 103/ul Normal 0.3-0.8 [facility] Comment on above: Performed By: #### C BC #### [facility] [address] [place] [address] Dr. Ofelia Tirado Monocytes/100 WBC (Bld) 7.4 % Normal 1.7-12.0 [facility] Comment on above: Performed By: #### C BC #### [facility] [address] [place] [address] Dr. Ofelia Tirado NEUT # 2.1 103/ul Normal 1.4-6.5 [facility] Comment on above: Performed By: #### C BC #### [facility] [address] [place] [address] Dr. Ofelia Tirado Neutrophils/100 WBC (Bld) 52.2 % Normal 43.0-75.0 [facility] Comment on above: Performed By: #### C BC #### [facility] [address] [place] [address] Dr. Ofelia Tirado Platelet mean volume (Bld) [Entitic vol] 9.4 fL Critically low 9.5-13.5 [facility] Comment on above: Performed By: #### C BC #### [facility] [address] [place] [address] Dr. Ofelia Tirado PLT 263 103/ul Normal 150-450 [facility] Comment on above: Performed By: #### C BC #### [facility] [address] [place] [address] Dr. Ofelia Tirado RBC 4.56 106/ul Critically low 4.70-6.10 [facility] Comment on above: Performed By: #### C BC #### [facility] [address] [place] [address] Dr. Ofelia Tirado WBC 3.9 103/ul Critically low 4.0-11.0 [facility] Comment on above: Performed By: #### C BC #### [facility] [address] [place] [address] Dr. Ofelia Tirado LIPID PROFILEon 08-01-2022 CHOL-HDL RATIO NORM SEE BELOW Normal [facility] Comment on above: Result Comment: 3.3 - 4.4 LOW RISK 4.4 - 7.1 AVERAGE RISK 7.1 - 11.0 MODERATE RISK >11.0 HIGH RISK Performed By: #### L IPID, CMP #### [facility] [address] [place] [address] Dr. Ofelia Tirado Cholesterol [Mass/Vol] 228 mg/dL Critically high <=200 [facility] Comment on above: Performed By: #### L IPID, CMP #### [facility] [address] [address] [address] Ofelia Tirado Cholesterol in HDL [Mass/Vol] 62 mg/dL Critically high 40-60 [facility] Comment on above: Performed By: #### L IPID, CMP #### [facility] [address] [address] [address] Ofelia Tirado Cholesterol in LDL [Mass/Vol] 155.2 mg/dL Normal [facility] Comment on above: Performed By: #### L IPID, CMP #### [facility] [address] [address] [address] Ofelia Tirado Cholesterol.total/Chol esterol in HDL [Mass ratio] 3.7 {ratio} Normal [facility] Comment on above: Performed By: #### L IPID, CMP #### [facility] [address] [address] [address] Ofelia Tirado HDL NORMAL > or = 60 mg/dl - LO W CARDIOVASCULAR RISK <40 mg/dl - HIGH CARDIOVASCULAR RISK Normal [facility] Comment on above: Performed By: #### L IPID, CMP #### [facility] [address] [address] [address] Ofelia Tirado LDL CALC NORMAL SEE BELOW Normal [facility] Comment on above: Result Comment: <100 mg/dl OPTIMAL 100 - 129 mg/dl NEAR OR ABOVE OPTIMAL 130 - 159 mg/dl BORDERLINE HIGH 160 - 189 mg/dl HIGH >190 mg/dl VERY HIGH Performed By: #### L IPID, CMP #### [facility] [address] [address] [address] Ofelia Tirado Triglyceride [Mass/Vol] 54 mg/dL Normal <=150 [facility] Comment on above: Performed By: #### L IPID, CMP #### [facility] [address] [place] [address] Dr. Ofelia Tirado VLDL CALC 10.8 mg/dL Normal [facility] Comment on above: Performed By: #### L IPID, CMP #### [facility] [address] [address] [address] Ofelia Tirado PROF 14(COMP METB)on 022 Albumin [Mass/Vol] 4.0 g/dL Normal 3.4-5.0 [facility] Comment on above: Performed By: #### L IPID, CMP #### [facility] [address] [place] [address] Dr. Ofelia Tirado Albumin/Globulin [Mass ratio] 1.0 {ratio} Normal [facility] Comment on above: Performed By: #### L IPID, CMP #### [facility] [address] [address] [address] Ofelia Tirado ALP [Catalytic activity/Vol] 60 U/L Normal 46-116 [facility] Comment on above: Performed By: #### L IPID, CMP #### [facility] [address] [place] [address] Dr. Ofelia Tirado ALT [Catalytic activity/Vol] 28 U/L Normal 16-63 [facility] Comment on above: Performed By: #### L IPID, CMP #### [facility] [address] [place] [address] Dr. Ofelia Tirado Anion gap [Moles/Vol] 10.8 mmol/L Normal [facility] Comment on above: Performed By: #### L IPID, CMP #### [facility] [address] [place] [address] Dr. Ofelia Tirado AST [Catalytic activity/Vol] 19 U/L Normal 15-37 [facility] Comment on above: Performed By: #### L IPID, CMP #### [facility] [address] [address] [address] Ofelia Tirado Bilirubin [Mass/Vol] 0.7 mg/dL Normal 0.2-1.0 [facility] Comment on above: Performed By: #### L IPID, CMP #### [facility] [address] [place] [address] Dr. Ofelia Tirado Calcium [Mass/Vol] 9.3 mg/dL Normal 8.5-10.1 [facility] Comment on above: Performed By: #### L IPID, CMP #### [facility] [address] [place] [address] Dr. Ofelia Tirado Chloride [Moles/Vol] 103 mmol/L Normal 98-107 [facility] Comment on above: Performed By: #### L IPID, CMP #### [facility] [address] [address] [address] Ofelia Tirado CO2 [Moles/Vol] 31.4 mmol/L Normal 21.0-32.0 [facility] Comment on above: Performed By: #### L IPID, CMP #### [facility] [address] [place] [address] Dr. Ofelia Tirado Creatinine [Mass/Vol] 1.10 mg/dL Normal 0.70-1.30 [facility] Comment on above: Performed By: #### L IPID, CMP #### [facility] [address] [place] [address] Dr. Ofelia Tirado EGFR-AF SAMOAN >60 Normal >=60 [facility] Comment on above: Performed By: #### L IPID, CMP #### [facility] [address] [place] [address] Dr. Ofelia Tirado EGFR-NON AF SAMOAN >60 Normal >=60 [facility] Comment on above: Performed By: #### L IPID, CMP #### [facility] [address] [place] [address] Dr. Ofelia Tirado Globulin (S) [Mass/Vol] 3.9 g/dL Normal [facility] Comment on above: Performed By: #### L IPID, CMP #### [facility] [address] [address] [address] Ofelia Tirado Glucose [Mass/Vol] 99 mg/dL Normal 74-106 [facility] Comment on above: Performed By: #### L IPID, CMP #### [facility] [address] [place] [address] Dr. Ofelia Tirado Potassium [Moles/Vol] 4.2 mmol/L Normal 3.5-5.1 [facility] Comment on above: Performed By: #### L IPID, CMP #### [facility] [address] [place] [address] Dr. Ofelia Tirado Protein [Mass/Vol] 7.9 g/dL Normal 6.4-8.2 [facility] Comment on above: Performed By: #### L IPID, CMP #### [facility] [address] [place] [address] Dr. Ofelia Tirado Sodium [Moles/Vol] 141 mmol/L Normal 136-145 [facility] Comment on above: Performed By: #### L IPID, CMP #### [facility] [address] [place] [address] Dr. Ofelia Tirado Urea nitrogen [Mass/Vol] 21.0 mg/dL Critically high 7.0-18.0 [facility] Comment on above: Performed By: #### L IPID, CMP #### [facility] [address] [place] [address] Dr. Ofelia Tirado Urea nitrogen/Creatinine [Mass ratio] 19.1 mg/mg Normal [facility] Comment on above: Performed By: #### L IPID, CMP #### [facility] [address] [place] [address] Dr. Ofelia Tirado Prostatic Specific Antigen, [facility] 02-17-2022 TPSA 3.170 ng/mL Normal <4.000 [facility] Specialist Comment on above: Result Comment: PSA Test Method: ECLIA/Rom e 601 Performed By: #### P SA #### [facility] [address] [place], [place] [id number] Q - SARS CoV2 COVID 19 Ab Ig Derek 09-30-2021 SARS-CoV-2 (COVID-19) Ab IA Qn 18.19 index High <1.00 [facility] Commodities Clerk Comment on above: Order Comment: [facility] Testing performed at: [facility], [address] [place] [address], [address] [place] [address], [id number], Pool Player: Sharad Carranza MD [facility] Collection Date/Time: [id number] [facility] Results Received Date/Time: [id number] [facility] Reported Date/Time: [id number] Result Comment: This test is intended to help identify individuals with antibodies to SARS-CoV-2 (COVID-19). The results of this semi-quantitative test should not be interpreted as an indication or degree of immunity or protection from reinfection. A test result that is 1.00 or more (Positive) means antibodies to SARS-CoV-2 were detected in the blood sample by the test. This could mean that the individual may have an immune response to a recent or prior infection with SARS-CoV-2. Positive results may occur after COVID-19 vaccination, but the clinical significance of a positive antibody result for individuals that have received a COVID-19 vaccine is unknown, and the performance of the test has not been established in COVID-19 vaccinees. False positive results for the test may occur due to cross-reactivity from pre-existing antibodies or other possible causes. A test result that is less than 1.00 (Negative) means that antibodies were not detected in the blood sample by the test. This could mean that the individual has not been previously infected with SARS-CoV-2. The clinical significance of a negative antibody result for individuals that have received a COVID-19 vaccine is unknown. The performance of the test has not been established in COVID-19 vaccinees. False negative results for the test may occur if the individual's antibodies have not reached a sufficient level for the test to be able to detect them. Antibodies can take up to two to three weeks (sometimes longer) to develop after someone is infected. How long antibodies to SARS-CoV-2 last after infection is not known. This test should not be used to diagnose an active SARS-CoV-2 infection. If an active infection is suspected, direct molecular or antigen testing for SARS-CoV-2 is recommended. Please review the Fact Sheets available for healthcare providers and patients using the following websites: http://patient.[employer].com/[employer]-HCP http://patient.[employer]s.com/[employer]ell[employer]-Patients Healthcare Providers: For additional information please refer to: http://education.[employer].CertusNet/faq/QEF150 (This link is being provided for informational/educational purposes only.) This test has been authorized by the FDA under an Emergency Use Authorization (EUA) for use by authorized laboratories. The FDA authorized labeling is available on the [employer] website: www.[employer].CertusNet/Covid19. Performed By: #### [id number] #### [facility] [address] [place] [address] Vital Signs Date Time Vital Sign Value Performing Clinician Facility 10-20-2023 14:59-0500 Body mass index (BMI) [Ratio] 28.12 kg/m2 Leeann Mcintyre HEALTH INFORMATION SPECIALIST-WASHROOM ATTENDANT Work Phone: [facility] 10-20-2023 14:59-0500 Body weight 86.36 kg Leeann Mcintyre HEALTH INFORMATION SPECIALIST-WASHROOM ATTENDANT Work Phone: [facility] 10-20-2023 14:59-0500 Diastolic blood pressure 88 mm[Hg] Leeann Mcintyre HEALTH INFORMATION SPECIALIST-WASHROOM ATTENDANT Work Phone: [facility] 10-20-2023 14:59-0500 Heart rate 75 /min Leeann Mcintyre HEALTH INFORMATION SPECIALIST-WASHROOM ATTENDANT Work Phone: [facility] 10-20-2023 14:59-0500 Systolic blood pressure 160 mm[Hg] Leeann Mcintyre HEALTH INFORMATION SPECIALIST-WASHROOM ATTENDANT Work Phone: [facility] 06-04-2023 08:02-0400 Blood Pressure Location [facility] 06-04-2023 08:02-0400 Body temperature 97.16 [degF] [facility] 06-04-2023 08:02-0400 Diastolic blood pressure 79 mm[Hg] [facility] 06-04-2023 08:02-0400 Heart rate 65 /min [facility] 06-04-2023 08:02-0400 Systolic blood pressure 138 mm[Hg] Uabrie L[facility] 02-26-2023 08:16-0400 Blood Pressure Location [facility] 02-26-2023 08:16-0400 Diastolic blood pressure 85 mm[Hg] [facility] 02-26-2023 08:16-0400 Heart rate 72 /min [facility] 02-26-2023 08:16-0400 Systolic blood pressure 130 mm[Hg] [facility]rie L[facility] 12-02-2022 15:21-0500 Heart rate 67 /min Aubrie Lue [facility] 12-02-2022 15:21-0500 SaO2% (BldA) [Mass fraction] 98 % Aubrie Lue [facility] 12-02-2022 15:21-0500 Diastolic blood pressure 76 mm[Hg] Aubrie Lue [facility] 12-02-2022 15:21-0500 Mean blood pressure 99 mm[Hg] Aubrie Lue [facility] 12-02-2022 15:21-0500 Systolic blood pressure 145 mm[Hg] Aubrie Lue [facility] 12-02-2022 15:21-0500 Blood Pressure Location Aubrie Lue [facility] 12-02-2022 15:21-0500 Body temperature 97.7 [degF] Aubrie Lue [facility] 12-02-2022 15:21-0500 Respiratory rate 18 /min Aubrie Lue [facility] 12-02-2022 15:20-0500 Heart rate 70 /min Aubrie Lue [facility] 12-02-2022 15:20-0500 SaO2% (BldA) [Mass fraction] 98 % Aubrie Lue [facility] 12-02-2022 15:20-0500 Diastolic blood pressure 80 mm[Hg] Aubrie Lue [facility] 12-02-2022 15:20-0500 Mean blood pressure 97 mm[Hg] Aubrie Lue [facility] 12-02-2022 15:20-0500 Systolic blood pressure 132 mm[Hg] Aubrie Lue [facility] 12-02-2022 15:20-0500 Blood Pressure Location Aubrie Lue [facility] 10-02-2022 10:15-0500 Blood Pressure Location Harshad JANE [facility] 10-02-2022 10:15-0500 Diastolic blood pressure 84 mm[Hg] Harshad JANE [facility] 10-02-2022 10:15-0500 Heart rate 79 /min Harshad JANE [facility] 10-02-2022 10:15-0500 Respiratory rate 16 /min Harshad JANE [facility] 10-02-2022 10:15-0500 Systolic blood pressure 130 mm[Hg] Harshad JANE [facility] 09-22-2022 16:15-0500 Diastolic blood pressure 82 mm[Hg] MD Leti Bullard Work Phone: [facility] 09-22-2022 16:15-0500 Heart rate 73 /min MD Leti Bullard Work Phone: [facility] 09-22-2022 16:15-0500 Respiratory rate 16 /min MD Leti Bullard Work Phone: [facility] 09-22-2022 16:15-0500 SaO2% (BldA) [Mass fraction] 99 % MD Leti Bullard Work Phone: [facility] 09-22-2022 16:15-0500 Systolic blood pressure 103 mm[Hg] MD Leti Bullard Work Phone: [facility] 09-22-2022 16:00-0500 Inhaled oxygen flow rate 6 L/min MD Leti Bullard Work Phone: [facility] 09-22-2022 12:59-0500 Body height 175.26 cm MD Leti Bullard Work Phone: [facility] 09-22-2022 12:59-0500 Body mass index (BMI) [Ratio] 25.8 kg/m2 MD Leti Bullard Work Phone: [facility] 09-22-2022 12:59-0500 Body weight 79.37 kg MD Leti Bullard Work Phone: [facility] 09-22-2022 11:29-0500 Body temperature 97.9 [degF] MD Leti Bullard Work Phone: [facility] 09-07-2022 15:53-0500 Blood Pressure Location Harshad JANE [facility] 09-07-2022 15:53-0500 Diastolic blood pressure 84 mm[Hg] Harshad JANE [facility] 09-07-2022 15:53-0500 Heart rate 68 /min Harshad JANE [facility] 09-07-2022 15:53-0500 Respiratory rate 16 /min Harshad JANE [facility] 09-07-2022 15:53-0500 Systolic blood pressure 129 mm[Hg] Harshad JANE [facility] 02-23-2022 15:30-0400 Blood Pressure Location Harshad JANE [facility] 02-23-2022 15:30-0400 Diastolic blood pressure 77 mm[Hg] Harshad JANE [facility] 02-23-2022 15:30-0400 Heart rate 68 /min Harshadori JANE [facility] 02-23-2022 15:30-0400 Systolic blood pressure 153 mm[Hg] Harshad JANE [facility] Encounters Encounter Date Encounter Type Care Provider Facility Start: 11-26-2023 ambulatory Aubrie Stauffer Facility:[facility] Start: 11-19-2023 End: 11-19-2023 ambulatory Aubrie Stauffer Facility:[facility] Start: 11-19-2023 End: 11-19-2023 ambulatory MD Leti Bullard Work Phone: [facility] Work Phone: Start: 11-19-2023 End: 11-19-2023 Patient encounter procedure MD Leti Bullard Work Phone: [facility] [place] Work Phone: Start: 10-20-2023 End: 10-20-2023 Office outpatient new 30 minutes Leeann Mcintyre HEALTH INFORMATION SPECIALIST-WASHROOM ATTENDANT Work Phone: [facility] Comment on above: History of colon najma yps (Primary Dx) Start: 08-17-2023 End: 08-17-2023 ambulatory LETI BULLARD Not Available Start: 07-31-2023 End: 07-31-2023 ambulatory Leti Bullard Facility:[facility] Start: 07-31-2023 End: 07-31-2023 ambulatory MD Leti Bullard Work Phone: [facility] Work Phone: Start: 07-31-2023 End: 07-31-2023 Patient encounter procedure MD Leti Bullard Work Phone: [facility] [place] Work Phone: Start: 06-04-2023 End: 06-05-2023 ambulatory Aubrie Stauffer Facility:[facility] Start: 06-04-2023 End: 06-04-2023 Patient encounter procedure Aubrie Stauffer [facility] Start: 03-08-2023 ambulatory Harshad Tuttle ty:[facility] Start: 02-26-2023 End: 02-27-2023 ambulatory Aubrie Stauffer Facility:[facility] Start: 02-26-2023 End: 02-26-2023 Patient encounter procedure Aubrie Stauffer [facility] Start: 02-09-2023 End: 02-10-2023 ambulatory AUBRIE STAUFFER Facility: Start: 12-30-2022 End: 12-31-2022 ambulatory Aubrie Stauffer Facility:[facility] Start: 12-30-2022 End: 12-30-2022 Patient encounter procedure Aubrie Stauffer [facility] Start: 12-25-2022 End: 12-26-2022 ambulatory Aubrie Elie. Tenishae [facility] Start: 12-22-2022 End: 12-23-2022 ambulatory OFELIA TIRADO MD Facility:[id number] Start: 12-22-2022 End: 12-23-2022 ambulatory Aubrie M. Lue Facility:[facility] Start: 12-02-2022 End: 12-03-2022 ambulatory Aubrie M. Lue Facility:[facility] Start: 12-02-2022 End: 12-02-2022 Patient encounter procedure Aubrie ElieJessica Stauffer [facility] Start: 10-02-2022 End: 10-02-2022 Patient encounter procedure Harshad JANE [facility] Start: 09-22-2022 End: 09-22-2022 Admission to same day surgery center MD Leti Bullard Work Phone: [facility] [place] Start: 09-22-2022 End: 09-22-2022 ambulatory MD Leti Bullard Work Phone: [facility] Work Phone: Start: 09-15-2022 End: 09-15-2022 Patient encounter procedure MD Leti Bullard Work Phone: [facility] Start: 09-07-2022 End: 09-07-2022 Patient encounter procedure Harshad JANE [facility] Start: 09-02-2022 End: 09-02-2022 ambulatory MD Leti Bullard Work Phone: [facility] Work Phone: Start: 09-02-2022 End: 09-02-2022 Patient encounter procedure MD Leti Bullard Work Phone: [facility] [place] Start: 08-05-2022 Encounter for genera l adult medical examination without abnormal findings DR LETI BULLARD [facility] Start: 08-01-2022 End: 08-02-[address] LETI BULLARD Facility:[facility] Start: 08-01-2022 End: 08-02-2022 Encounter for general adult medical examination without abnormal findings DR LETI BULLARD Facility:[facility] Start: 02-23-2022 End: 02-23-2022 Patient encounter procedure Harshad JANE [facility] Procedures Date Procedure Procedure Detail Performing Clinician Start: 02-09-[address] LETI BULLARD Comment on above: Performed By: #### P SAD #### [facility] [address] [place] [address] Dr. Ofelia Tirado Start: 12-22-2022 Robot assisted lapar oscopic radical prostatectomy Aubrie Eh Start: 09-22-2022 OR (TRUS) Prostate B iopsy w/Ultrasound (Not Applicable) MD Leti Bullard Work Phone: Start: 09-22-2022 MRI-US fusion guided transperineal biopsy of prostate Harshad JANE Start: 09-02-2022 MR prostate wo/w con MD Leti Bullard Work Phone: Start: 01-17-2019 Ultrasonography guid ed transrectal cryoablation of prostate Harshad JANE Start: 10-19-2018 Colonoscopy Leeann mitchelloll HEALTH INFORMATION SPECIALIST-WASHROOM ATTENDANT Work Phone: Start: 08-16-2018 Ultrasonography guid ed transrectal cryoablation of prostate Harshad JANE Start: 07-21-2011 Cystoscopy Harshad MALONE Plan of Treatment Date Care Activity Detail Author Start: 10-20-2024 Adult BMI Screening Adult BMI Screen ing [facility] Start: 10-20-2024 Tobacco Screening Tobacco Screening [facility] Start: 10-19-2023 Screening for malign ant neoplasm of colon Colonoscopy [facility] Start: 06-04-2023 Influenza vaccination Influenza Vacc ine [facility] Start: 09-22-2022 End: 09-22-2022 [facility] Start: 09-02-2022 MR Prostate WO and W contrast IV [facility] Start: 09-02-2022 MR prostate wo/w con MR prostate wo/ w con [facility] Start: 2009 Administration of varicella zoster vaccine Zoster (Shingles) Vaccine (1 of 2) [facility] Start: 1978 DTaP,Tdap and Td Vac cines (1 - Tdap) DTaP,Tdap and Td Vaccines (1 - Tdap) [facility] Start: 1971 Depression Screening Depression Scre ening [facility] End: 10-20-2024 Colonoscopy Colonoscopy GI Routine History of colon polyps 1 Occurrences starting 10/20/2023 until 10/20/2024 [facility] Work Phone: Comment on above: 1 Occurrences starti ng 10/20/2023 until 10/20/2024 Patient referral [facility] Work Phone: Payers Date Payer Category Payer Self-pay 2022 Private Health Insurance [facility] [employer] [id number] 2022-Present [phone] [address] [address] [place] [address] [id number] 2008 Unknown 1959 Unknown [id number] 1959 Unknown [id number] 1959 Unknown [id number] [id number]. 2.159 1959 Unknown [id number] 2.16.840.1.662177.3.579. 2.593 1959 Unknown [id number] 2.16.840.1.973497.3.579. 2.593 1959 Unknown [id number] 2.16.840.1.929901.3.579. 2.1259 1959 Unknown [id number] 2.16.840.1.635735.3.579. 2.727 1959 Unknown [id number] 2.16.840.1.158335.3.579. 2.727 1959 Unknown [id number] 2.16.840.1.904579.3.579. 2.727 1959 Unknown [id number] 2.16.840.1.858609.3.579. 2.727 1959 Unknown [id number] 2.16.840.1.413495.3.579. 2.727 1959 Unknown [id number] 2.16.840.1.713475.3.579. 2.727 1959 Unknown [id number] 2.16.840.1.338376.3.579. 2.727 1959 Unknown [id number] 2.16.840.1.358374.3.579. 2.727 Unknown [id number] 2.16.840.1.342471.3.579. 2.531 Unknown [id number] [id number]. 2.531 Social History Date Type Detail Facility Start: 02-23-2022 End: 09-22-2022 Tobacco smoking status Never smoked tobacco (finding) [facility] Start: 10-10-2018 End: 11-14-2020 Sex Assigned At Male [facility] Start: 1960 Sex Assigned At Male F [facility] Tobacco smoking status Never [facility] Start: 10-20-2023 Tobacco use and exposure Smokeless tobacco non-user [facility] [employer] Start: 10-20-2023 Alcohol intake Current non-dr policy change clerk of alcohol (finding) [facility] Start: 10-10-2018 End: 11-14-2020 History of Social function [facility] Start: 1960 Sex Assigned At Not on file [employer] [facility] Goals Date Patient Goal Desired Activity /State Functional Status Date Assessment Result Facility 06-04-2023 Functional Status N/A [facility] 02-26-2023 Functional Status N/A [facility] 12-30-2022 Functional Status N/A [facility] 12-02-2022 Functional Status No [facility] 10-02-2022 Functional Status N/A [facility] 09-07-2022 Functional Status N/A [facility] Clinical Notes 02-23-2022 to 10-20-2023 Leeann Mcintyre, HEALTH INFORMATION SPECIALIST-WASHROOM ATTENDANT - 10/20/2023 3:00 PM EST Note Date & Type Note Facility 10-20-2023 History of Present illness Narrative Images from the original note were not included. Chief Complaint: History of colon polyps History of Present Illness Ashok De Leon is a 63 y.o. male who presents to the office for colonoscopy. His last colonoscopy was in October 2018, significant for tubular adenoma. It was recommended he follow-up in 5 years for surveillance. He denies any changes in his bowels including diarrhea, constipation, abdominal pain, melena, hematochezia, unexplained weight loss. There is no family history of colon cancer. He has a personal history of prostate cancer with prostatectomy in December 2022. Review of Systems Constitutional: Negative for fever and unexpected weight change. HENT: Negative for trouble swallowing. Respiratory: Negative for shortness of breath. Cardiovascular: Negative for chest pain and palpitations. Gastrointestinal: Negative for nausea, vomiting, abdominal pain, diarrhea, constipation, blood in stool and black tarry stool. Genitourinary: Negative for dysuria and difficulty urinating. Musculoskeletal: Negative for joint swelling and gait problem. Skin: Negative for rash and wound. Allergic/Immunologic: Negative for immunocompromised state. Neurological: Negative for dizziness, weakness and light-headedness. Hematological: Does not bruise/bleed easily. Psychiatric/Behavioral: Negative for behavioral problems and confusion. Past Medical History: Diagnosis Date Anemia borderline Prostate cancer ([facility]) Past Surgical History: Procedure Laterality Date COLONOSCOPY PROSTATECTOMY 12/2022 No Known Allergies Current Outpatient Medications: tadalafiL (CIALIS) 20 mg tablet, Take 1 tablet (20 mg total) by mouth daily as needed for erectile dysfunction., Disp: , Rfl: tadalafiL (CIALIS) 5 mg tablet, Take 1 tablet (5 mg total) by mouth in the morning., Disp: , Rfl: sod sulf-pot chloride-mag sulf 1.479-0.188- 0.225 gram tablet, Please see instructional sheet given by physicians office., Disp: 24 tablet, Rfl: 0 Social History Socioeconomic History Marital status: Spouse name: Not on file Number of children: Not on file Years of education: Not on file Highest education level: Not on file Occupational History Not on file Tobacco Use Smoking status: Never Smokeless tobacco: Never Vaping Use Vaping Use: Never used Substance and Sexual Activity Alcohol use: No Drug use: No Sexual activity: Defer Other Topics Concern Not on file Social History Narrative Not on file Social Determinants of Health Financial Resource Strain: Not on file Food Insecurity: No Food Insecurity (10/20/2023) Hunger Screening Food Insecurity - Worry: Never True Food Insecurity - Inability: Never True Transportation Needs: Not on file Physical Activity: Not on file Stress: Not on file Social Connections: Not on file Interpersonal Safety: Not on file Family History Problem Relation Age of Onset Uterine cancer Mother Diabetes Father Diabetes Maternal Grandfather Objective Physical Exam Constitutional: Appearance: Normal appearance. HENT: Head: Normocephalic and atraumatic. Mouth/Throat: Mouth: Mucous membranes are moist. Eyes: Pupils: Pupils are equal, round, and reactive to light. Cardiovascular: Rate and Rhythm: Normal rate. Pulmonary: Effort: Pulmonary effort is normal. No respiratory distress. Abdominal: General: There is no distension. Palpations: Abdomen is soft. Musculoskeletal: General: Normal range of motion. Cervical back: Normal range of motion. Skin: General: Skin is warm and dry. Neurological: Mental Status: He is alert and oriented to person, place, and time. Mental status is at baseline. Vital Signs: Blood pressure 160/88, pulse 75, weight 86.4 kg (190 lb 6.4 oz). Respiratory Source: No data recorded Admission Weight: Weight: 86.4 kg (190 lb 6.4 oz) Labs No results found for: WBC , HGB , HCT , MCV , PLT No results found for: GLU , CALCIUM , NA , K , CO2 , CL , BUN , CREATININE No results found for: AMYLASE No results found for: LIPASE No results found for: ALT , AST , GGT , ALKPHOS , LABBILI No results found for: INR , PROTIME Assessment Ashok De Leon is a 63 y.o.male who presents to the office for colonoscopy due to history of colon polyps. Plan Colonoscopy with possible biopsy and/or polypectomy. Risks, benefits, and alternatives discussed with patient. Educated on bowel evacuation preparation. Patient verbalizes understanding and wishes to proceed. Evaluation included: Preparing to see the patient (e.g., review of tests) Obtaining and/or reviewing separately obtained history Performing a medically appropriate examination and/or evaluation Counseling and educating the patient/family/caregiver Referring and communicating with other health attending ambulatory care History of colon polyps [Z86.010] STEFAN DOHERTY [facility] [place] This note was created with the assistance of a speech recognition program. While intending to generate a timely document that accurately reflects the content of the visit, no guarantee can be provided that every grammatical or spelling mistake has been or will be identified or corrected. Thank you for your understanding. STEFAN Doherty 10/20/23 1513 documented in this encounter [facility] 06-04-2023 Hospital Discharge instructions Patient Education 06/04/2023 08:25:13 Erectile Dysfunction Erectile Dysfunction Erectile dysfunction (ED) is the inability to get or keep an erection in order to have sexual intercourse. ED is considered a symptom of an underlying disorder and is not considered a disease. ED may include: Inability to get an erection. Lack of enough hardness of the erection to allow penetration. Loss of erection before sex is finished. What are the causes? This condition may be caused by: Physical causes, such as: ?Artery problems. This may include heart disease, high blood pressure, atherosclerosis, and diabetes. ?Hormonal problems, such as low testosterone. ?Obesity. ?Nerve problems. This may include back or pelvic injuries, multiple sclerosis, Parkinson's disease, spinal cord injury, and stroke. Certain medicines, such as: ?Pain relievers. ?Antidepressants. ?Blood pressure medicines and water pills (diuretics). ?Cancer medicines. ?Antihistamines. ?Muscle relaxants. Lifestyle factors, such as: ?Use of drugs such as marijuana, cocaine, or opioids. ?Excessive use of alcohol. ?Smoking. ?Lack of physical activity or exercise. Psychological causes, such as: ?Anxiety or stress. ?Sadness or depression. ?Exhaustion. ?Fear about sexual performance. ?Guilt. What are the signs or symptoms? Symptoms of this condition include: Inability to get an erection. Lack of enough hardness of the erection to allow penetration. Loss of the erection before sex is finished. Sometimes having normal erections, but with frequent unsatisfactory episodes. Low sexual satisfaction in either partner due to erection problems. A curved penis occurring with erection. The curve may cause pain, or the penis may be too curved to allow for intercourse. Never having nighttime or morning erections. How is this diagnosed? This condition is often diagnosed by: Performing a physical exam to find other diseases or specific problems with the penis. Asking you detailed questions about the problem. Doing tests, such as: ?Blood tests to check for diabetes mellitus or high cholesterol, or to measure hormone levels. ?Other tests to check for underlying health conditions. ?An ultrasound exam to check for scarring. ?A test to check blood flow to the penis. Doing a sleep study at home to measure nighttime erections. How is this treated? This condition may be treated by: Medicines, such as: ?Medicine taken by mouth to help you achieve an erection (oral medicine). ?Hormone replacement therapy to replace low testosterone levels. ?Medicine that is injected into the penis. Your health care provider may instruct you how to give yourself these injections at home. ?Medicine that is delivered with a short applicator tube. The tube is inserted into the opening at the tip of the penis, which is the opening of the urethra. A tiny pellet of medicine is put in the urethra. The pellet dissolves and enhances erectile function. This is also called MUSE (medicated urethral system for erections) therapy. Vacuum pump. This is a pump with a ring on it. The pump and ring are placed on the penis and used to create pressure that helps the penis become erect. Penile implant surgery. In this procedure, you may receive: ?An inflatable implant. This consists of cylinders, a pump, and a reservoir. The cylinders can be inflated with a fluid that helps to create an erection, and they can be deflated after intercourse. ?A semi-rigid implant. This consists of two silicone rubber rods. The rods provide some rigidity. They are also flexible, so the penis can both curve downward in its normal position and become straight for sexual intercourse. Blood vessel surgery to improve blood flow to the penis. During this procedure, a blood vessel from a different part of the body is placed into the penis to allow blood to flow around (bypass) damaged or blocked blood vessels. Lifestyle changes, such as exercising more, losing weight, and quitting smoking. Follow these instructions at home: Medicines Take [id number] and prescription medicines only as told by your health care provider. Do not increase the dosage without first discussing it with your health care provider. If you are using self-injections, do injections as directed by your health care provider. Make sure you avoid any veins that are on the surface of the penis. After giving an injection, apply pressure to the injection site for 5 minutes. Talk to your health care provider about how to prevent headaches while taking ED medicines. These medicines may cause a sudden headache due to the increase in blood flow in your body. General instructions Exercise regularly, as directed by your health care provider. Work with your health care provider to lose weight, if needed. Do not use any products that contain nicotine or tobacco. These products include cigarettes, chewing tobacco, and vaping devices, such as e-cigarettes. If you need help quitting, ask your health care provider. Before using a vacuum pump, read the instructions that come with the pump and discuss any questions with your health care provider. Keep all follow-up visits. This is important. Contact a health care provider if: You feel nauseous. You are vomiting. You get sudden headaches while taking ED medicines. You have any concerns about your sexual health. Get help right away if: You are taking oral or injectable medicines and you have an erection that lasts longer than 4 hours. If your health care provider is unavailable, go to the nearest emergency room for evaluation. An erection that lasts much longer than 4 hours can result in permanent damage to your penis. You have severe pain in your groin or abdomen. You develop redness or severe swelling of your penis. You have redness spreading at your groin or lower abdomen. You are unable to urinate. You experience chest pain or a rapid heartbeat (palpitations) after taking oral medicines. These symptoms may represent a serious problem that is an emergency. Do not wait to see if the symptoms will go away. Get medical help right away. Call your local emergency services (911 in the [place] Do not drive yourself to the hospital. Summary Erectile dysfunction (ED) is the inability to get or keep an erection during sexual intercourse. This condition is diagnosed based on a physical exam, your symptoms, and tests to determine the cause. Treatment varies depending on the cause and may include medicines, hormone therapy, surgery, or a vacuum pump. You may need follow-up visits to make sure that you are using your medicines or devices correctly. Get help right away if you are taking or injecting medicines and you have an erection that lasts longer than 4 hours. This information is not intended to replace advice given to you by your health care provider. Make sure you discuss any questions you have with your health care provider. Document Revised: 12/17/2021 Document Reviewed: 12/17/2021 Elsevier Patient Education 2022 [employer]. Follow Up Care 02/26/2023 09:23:32 With:Eh WESTBROOK, CHAVEZ [place], [facility] Address: When: Unknown [facility] 02-26-2023 Hospital Discharge instructions Patient Education 02/26/2023 09:00:59 Prostate Cancer Prostate Cancer The prostate is a small gland that produces fluid that makes up semen (seminal fluid). It is located below the bladder in men, in front of the rectum. Prostate cancer is the abnormal growth of cells in the prostate gland. What are the causes? The exact cause of this condition is not known. What increases the risk? You are more likely to develop this condition if: You are 65 years of age or older. You have a family history of prostate cancer. You have a family history of breast and ovarian cancer. You have genes that are passed from parent to child (inherited), such as BRCA1 and BRCA2. You have Bryant syndrome. men and men of descent are diagnosed with prostate cancer at higher rates than other men. The reasons for this are not well understood and are likely due to a combination of genetic and environmental factors. What are the signs or symptoms? Symptoms of this condition include: Problems with urination. This may include: ?A weak or interrupted flow of urine. ?Trouble starting or stopping urination. ?Trouble emptying the bladder all the way. ?The need to urinate more often, especially at night. Blood in urine or semen. Persistent pain or discomfort in the lower back, lower abdomen, or hips. Trouble getting an erection. Weakness or numbness in the legs or feet. How is this diagnosed? This condition can be diagnosed with: A digital rectal exam. For this exam, a health care provider inserts a gloved finger into the rectum to feel the prostate gland. A blood test called a prostate-specific antigen (PSA) test. A procedure in which a sample of tissue is taken from the prostate and checked under a microscope (prostate biopsy). An imaging test called transrectal ultrasonography. Once the condition is diagnosed, tests will be done to determine how far the cancer has spread. This is called staging the cancer. Staging may involve imaging tests, such as a bone scan, CT scan, PET scan, or MRI. Stages of prostate cancer The stages of prostate cancer are as follows: Stage 1 (I). At this stage, the cancer is found in the prostate only. The cancer is not visible on imaging tests, and it is usually found by accident, such as during prostate surgery. Stage 2 (II). At this stage, the cancer is more advanced than it is in stage 1, but the cancer has not spread outside the prostate. Stage 3 (III). At this stage, the cancer has spread beyond the outer layer of the prostate to nearby tissues. The cancer may be found in the seminal vesicles, which are near the bladder and the prostate. Stage 4 (IV). At this stage, the cancer has spread to other parts of the body, such as the lymph nodes, bones, bladder, rectum, liver, or lungs. Prostate cancer grading Prostate cancer is also graded according to how the cancer cells look under a microscope. This is called the Westfield score and the total score can range from 6 10, indicating how likely it is that the cancer will spread (metastasize) to other parts of the body. The higher the score, the greater the likelihood that the cancer will spread. Westfield 6 or lower: This indicates that the cancer cells look similar to normal prostate cells (well differentiated). Evin 7: This indicates that the cancer cells look somewhat similar to normal prostate cells (moderately differentiated). Westfield 8, 9, or 10: This indicates that the cancer cells look very different than normal prostate cells (poorly differentiated). How is this treated? Treatment for this condition depends on several factors, including the stage of the cancer, your age, personal preferences, and your overall health. Talk with your health care provider about treatment options that are recommended for you. Common treatments include: Observation for early stage prostate cancer (active surveillance). This involves having exams, blood tests, and in some cases, more biopsies. For some men, this is the only treatment needed. Surgery. Types of surgeries include: ?Open surgery (radical prostatectomy). In this surgery, a larger incision is made to remove the prostate. ?A laparoscopic radical prostatectomy. This is a surgery to remove the prostate and lymph nodes through several small incisions. It is often referred to as a minimally invasive surgery. ?A robotic radical prostatectomy. This is laparoscopic surgery to remove the prostate and lymph nodes with the help of robotic arms that are controlled by the surgeon. ?Cryoablation. This is surgery to freeze and destroy cancer cells. Radiation treatment. Types of radiation treatment include: ?External beam radiation. This type aims beams of radiation from outside the body at the prostate to destroy cancerous cells. ?Brachytherapy. This type uses radioactive needles, seeds, wires, or tubes that are implanted into the prostate gland. Like external beam radiation, brachytherapy destroys cancerous cells. An advantage is that this type of radiation limits the damage to surrounding tissue and has fewer side effects. Chemotherapy. This treatment kills cancer cells or stops them from multiplying. It kills both cancer cells and normal cells. Targeted therapy. This treatment uses medicines to kill cancer cells without damaging normal cells. Hormone treatment. This treatment involves taking medicines that act on testosterone, one of the male hormones, by: ?Stopping your body from producing testosterone. ?Blocking testosterone from reaching cancer cells. Follow these instructions at home: Lifestyle Do not use any products that contain nicotine or tobacco. These products include cigarettes, chewing tobacco, and vaping devices, such as e-cigarettes. If you need help quitting, ask your health care provider. Eat a healthy diet. To do this: ?Eat foods that are high in fiber. These include beans, whole grains, and fresh fruits and vegetables. ?Limit foods that are high in fat and sugar. These include fried or sweet foods. Treatment for prostate cancer may affect sexual function. If you have a partner, continue to have intimate moments. This may include touching, holding, hugging, and caressing your partner. Get plenty of sleep. Consider joining a support group for men who have prostate cancer. Meeting with a support group may help you learn to manage the stress of having cancer. General instructions Take qwhl-zhl-bhlverx and prescription medicines only as told by your health care provider. If you have to go to the hospital, notify your cancer specialist (oncologist). Keep all follow-up visits. This is important. Where to find more information [place] [employer]: www.cancer.org [place] [employer]: www.cancer.net National Cancer [place]: www.cancer.gov Contact a health care provider if: You have new or increasing trouble urinating. You have new or increasing blood in your urine. You have new or increasing pain in your hips, back, or chest. Get help right away if: You have weakness or numbness in your legs. You cannot control urination or your bowel movements (incontinence). You have chills or a fever. Summary The prostate is a small gland that is involved in the production of semen. It is located below a man's bladder, in front of the rectum. Prostate cancer is the abnormal growth of cells in the prostate gland. Treatment for this condition depends on the stage of the cancer, your age, personal preferences, and your overall health. Talk with your health care provider about treatment options that are recommended for you. Consider joining a support group for men who have prostate cancer. Meeting with a support group may help you learn to manage the stress of having cancer. This information is not intended to replace advice given to you by your health care provider. Make sure you discuss any questions you have with your health care provider. Document Revised: 12/17/2021 Document Reviewed: 12/17/2021 [employer] ([employer]) Patient Education 2022 [employer]. Follow Up Care 12/30/2022 11:16:59 With:Eh WESTBROOK, Aubrie Tripathi URL, [facility] Address: [address], [place] [phone] When:Within 3 Month(s) Comments:w/ PSA [facility] 12-30-2022 Hospital Discharge instructions Patient Education 12/30/2022 10:51:38 Prostate-Specific Antigen Test Prostate-Specific Antigen Test Why am I having this test? The prostate-specific antigen (PSA) test is a screening test for prostate cancer. It can identify early signs of prostate cancer, which may allow for more effective treatment. Your health care provider may recommend that you have a PSA test starting at age 40 or that you have one earlier or later, depending on your risk factors for prostate cancer. You may also have a PSA test: To monitor treatment of prostate cancer. To check whether prostate cancer has returned after treatment. If you have signs of other conditions that can affect PSA levels, such as: ?An enlarged prostate that is not caused by cancer (benign prostatic hyperplasia, BPH). This condition is very common in older men. ?A prostate infection. What is being tested? This test measures the amount of PSA in your blood. PSA is a protein that is made in the prostate. The prostate naturally produces more PSA as you age, but very high levels may be a sign of a medical condition. What kind of sample is taken? A blood sample is required for this test. It is usually collected by inserting a needle into a blood vessel or by sticking a finger with a small needle. Blood for this test should be drawn before having an exam of the prostate. How do I prepare for this test? Do not ejaculate starting 24 hours before your test, or as long as told by your health care provider. Tell a health care provider about: Any allergies you have. All medicines you are taking, including vitamins, herbs, eye drops, creams, and sxbg-idq-rdbimjx medicines. This also includes: ?Medicines to assist with hair growth, such as finasteride. ?Any recent exposure to a medicine called diethylstilbestrol. Any blood disorders you have. Any recent procedures you have had, especially any procedures involving the prostate or rectum. Any medical conditions you have. Any recent urinary tract infections (UTIs) you have had. How are the results reported? Your test results will be reported as a value that indicates how much PSA is in your blood. This will be given as nanograms of PSA per milliliter of blood (ng/mL). Your health care provider will compare your results to normal ranges that were established after testing a large group of people (reference ranges). Reference ranges may vary among labs and hospitals. PSA levels vary from person to person and generally increase with age. Because of this variation, there is no single PSA value that is considered normal for everyone. Instead, PSA reference ranges are used to describe whether your PSA levels are considered low or high (elevated). Common reference ranges are: Low: 0 2.5 ng/mL. Slightly to moderately elevated: 2.6 10.0 ng/mL. Moderately elevated: 10.0 19.9 ng/mL. Significantly elevated: 20 ng/mL or greater. Sometimes, the test results may report that a condition is present when it is not present (false-positive result). What do the results mean? A test result that is higher than 4 ng/mL may mean that you are at an increased risk for prostate cancer. However, a PSA test by itself is not enough to diagnose prostate cancer. High PSA levels may also be caused by the natural aging process, prostate infection, or BPH. PSA screening cannot tell you if your PSA is high due to cancer or a different cause. A prostate biopsy is the only way to diagnose prostate cancer. A risk of having the PSA test is diagnosing and treating prostate cancer that would never have caused any symptoms or problems (overdiagnosis and overtreatment). Talk with your health care provider about what your results mean. Questions to ask your health care provider Ask your health care provider, or the department that is doing the test: When will my results be ready? How will I get my results? What are my treatment options? What other tests do I need? What are my next steps? Summary The prostate-specific antigen (PSA) test is a screening test for prostate cancer. Your health care provider may recommend that you have a PSA test starting at age 40 or that you have one earlier or later, depending on your risk factors for prostate cancer. A test result that is higher than 4 ng/mL may mean that you are at an increased risk for prostate cancer. However, elevated levels can be caused by a number of conditions other than prostate cancer. Talk with your health care provider about what your results mean. This information is not intended to replace advice given to you by your health care provider. Make sure you discuss any questions you have with your health care provider. Document Released: 10/23/2005 Document Revised: 09/02/2018 Document Reviewed: 06/27/2018 [employer] Patient Education 2020 [employer] Follow Up Care 12/24/2022 09:35:03 With:Eh WESTBROOK, Aubrie Tripathi, URL, [facility] Address: When:Within 6 Week(s) Comments:w/PSA [facility] 12-25-2022 Note Patient: ASHOK DE LEON Age: 62 years Sex: Male : 1960 Associated Diagnoses: None Author: Aubrie Stauffer MD Results Review General results Today's results 12/24/2022 13:09 EDT Discharge Instructions 12/24/2022 11:26 EDT Physician Order CYSTOGRAM Physician Order Discharge Information 62-year-old male with low risk clinical T1c grade group 1 prostate adenocarcinoma diagnosed by MRI fusion transperineal biopsy 08/06/2022 Dr. Jane. Initial PSA 9.2. 79 cc volume prostate on MRI with 2 PI-RADS 4 lesions at the right and left peripheral zone. Due to history of multiple biopsies now with progression he elected to proceed with robotic assisted laparoscopic radical prostatectomy, which he underwent without complication on 12/22/2022. He recovered well postoperatively. He was tolerating p.o. intake, passing flatus, ambulating safely, had pain controlled on p.o. medications and remained hemodynamically stable. His drain had minimal output was removed prior to discharge home. He will follow-up in 1 week for cystogram and removal of arndt, pathology review. Physical Examination Intake and Output Fluid Balance Primitives 12/23/2022 13:00 EDT Other: MARIA GUADALUPE Abdomen Left Surgical Drain, Tube Output: 0 mL 12/23/2022 8:42 EDT Other: MARIA GUADALUPE Abdomen Left Surgical Drain, Tube Output: 0 mL 12/23/2022 6:00 EDT Urine Catheter 300 mL 12/23/2022 5:00 EDT Other: MARIA GUADALUPE Abdomen Left Surgical Drain, Tube Output: 0 mL 12/23/2022 4:10 EDT Other: MARIA GUADALUPE Abdomen Left Surgical Drain, Tube Output: 0 mL 12/23/2022 4:00 EDT Urine Catheter 125 mL 12/23/2022 1:33 EDT Other: MARIA GUADALUPE Abdomen Left Surgical Drain, Tube Output: 0 mL 12/23/2022 0:00 EDT Urine Catheter 100 mL Other: MARIA GUADALUPE Abdomen Left Surgical Drain, Tube Output: 0 mL General: Alert and oriented, No acute distress. Eye: Pupils are equal, round and reactive to light, Extraocular movements are intact, Normal conjunctiva. HENT: Normocephalic, Normal hearing, Oral mucosa is moist. Respiratory: Respirations are non-labored, Symmetrical chest wall expansion. Cardiovascular: Normal rate, Regular rhythm, No edema. Gastrointestinal: Soft, Non-distended, Appropriately mildly tender, laparoscopic incisions clean dry intact with skin glue. MARIA GUADALUPE drain to bulb suction with no output.. Genitourinary: No costovertebral angle tenderness, 18 [place] Arndt to gravity with clear yellow urine in tubing.. Musculoskeletal Normal range of motion. No tenderness. Integumentary: Warm, [place], Intact. Neurologic: Alert, Oriented, No focal deficits. Psychiatric: Cooperative, Appropriate mood & affect. Hospital Course Hospital Course Admitted from: from home. Admitting diagnosis: Prostate cancer ([id number] C61, Discharge, Medical). Discharge Plan Discharge Summary Plan Discharge Status: stable. Discharge instructions given: to patient, to caregiver. Discharge disposition: discharge to home into the care of family member. Prescriptions: reviewed (with patient, with spouse), called to pharmacy. Diagnosis Prostate cancer ([id number] [id number], Discharge, Medical). [facility] Comment on above: Result Comment: Elec tronically Signed By: Eh WESTBROOK, Aubrie Avila.br\Date and Time Signed: 12/25/22 19:22 EDT 12-04-2022 Note [id number] [facility] 10-02-2022 Hospital Discharge instructions Patient Education 10/02/2022 10:46:32 Prostate Cancer Prostate Cancer The prostate is a walnut-sized gland that is involved in the production of semen. It is located below a man's bladder, in front of the rectum. Prostate cancer is the abnormal growth of cells in the prostate gland. What are the causes? The exact cause of this condition is not known. What increases the risk? This condition is more likely to develop in men who: Are older than age 65. Are -[place] Citizen. Are obese. Have a family history of prostate cancer. Have a family history of breast cancer. What are the signs or symptoms? Symptoms of this condition include: A need to urinate often. Weak or interrupted flow of urine. Trouble starting or stopping urination. Inability to urinate. Pain or burning during urination. Painful ejaculation. Blood in urine or semen. Persistent pain or discomfort in the lower back, lower abdomen, hips, or upper thighs. Trouble getting an erection. Trouble emptying the bladder all the way. How is this diagnosed? This condition can be diagnosed with: A digital rectal exam. For this exam, a health care provider inserts a gloved finger into the rectum to feel the prostate gland. A blood test called a prostate-specific antigen (PSA) test. An imaging test called transrectal ultrasonography. A procedure in which a sample of tissue is taken from the prostate and examined under a microscope (prostate biopsy). Once the condition is diagnosed, tests will be done to determine how far the cancer has spread. This is called staging the cancer. Staging may involve imaging tests, such as: A bone scan. A CT scan. A PET scan. An MRI. The stages of prostate cancer are as follows: Stage I. At this stage, the cancer is found in the prostate only. The cancer is not visible on imaging tests and it is usually found by accident, such as during a prostate surgery. Stage II. At this stage, the cancer is more advanced than it is in stage I, but the cancer has not spread outside the prostate. Stage III. At this stage, the cancer has spread beyond the outer layer of the prostate to nearby tissues. The cancer may be found in the seminal vesicles, which are near the bladder and the prostate. Stage IV. At this stage, the cancer has spread other parts of the body, such as the lymph nodes, bones, bladder, rectum, liver, or lungs. How is this treated? Treatment for this condition depends on several factors, including the stage of the cancer, your age, personal preferences, and your overall health. Talk with your health care provider about treatment options that are recommended for you. Common treatments include: Observation for early stage prostate cancer (active surveillance). This involves having exams, blood tests, and in some cases, more biopsies. For some men, this is the only treatment needed. Surgery. Types of surgeries include: ?Open surgery. In this surgery, a larger incision is made to remove the prostate. ?A laparoscopic prostatectomy. This is a surgery to remove the prostate and lymph nodes through several, small incisions. It is often referred to as a minimally invasive surgery. ?A robotic prostatectomy. This is a surgery to remove the prostate and lymph nodes with the help of a robotic arm that is controlled by a computer. ?Orchiectomy. This is a surgery to remove the testicles. ?Cryosurgery. This is a surgery to freeze and destroy cancer cells. Radiation treatment. Types of radiation treatment include: ?External beam radiation. This type aims beams of radiation from outside the body at the prostate to destroy cancerous cells. ?Brachytherapy. This type uses radioactive needles, seeds, wires, or tubes that are implanted into the prostate gland. Like external beam radiation, brachytherapy destroys cancerous cells. An advantage is that this type of radiation limits the damage to surrounding tissue and has fewer side effects. High-intensity, focused ultrasonography. This treatment destroys cancer cells by delivering high-energy ultrasound waves to the cancerous cells. Chemotherapy medicines. This treatment kills cancer cells or stops them from multiplying. Hormone treatment. This treatment involves taking medicines that act on one of the male hormones (testosterone): ?By stopping your body from producing testosterone. ?By blocking testosterone from reaching cancer cells. Follow these instructions at home: Take dity-qjq-hmikxny and prescription medicines only as told by your health care provider. Maintain a healthy diet. Get plenty of sleep. Consider joining a support group for men who have prostate cancer. Meeting with a support group may help you learn to cope with the stress of having cancer. Keep all follow-up visits as told by your health care provider. This is important. If you have to go to the hospital, notify your cancer specialist (oncologist). Treatment for prostate cancer may affect sexual function. Continue to have intimate moments with your partner. This may include touching, holding, hugging, and caressing. Contact a health care provider if: You have trouble urinating. You have blood in your urine. You have pain in your hips, back, or chest. Get help right away if: You have weakness or numbness in your legs. You cannot control urination or your bowel movements (incontinence). You have trouble breathing. You have sudden chest pain. You have chills or a fever. Summary The prostate is a walnut-sized gland that is involved in the production of semen. It is located below a man's bladder, in front of the rectum. Prostate cancer is the abnormal growth of cells in the prostate gland. Treatment for this condition depends on several factors, including the stage of the cancer, your age, personal preferences, and your overall health. Talk with your health care provider about treatment options that are recommended for you. Consider joining a support group for men who have prostate cancer. Meeting with a support group may help you learn to cope with the stress of having cancer. This information is not intended to replace advice given to you by your health care provider. Make sure you discuss any questions you have with your health care provider. Document Released: 09/20/2006 Document Revised: 09/02/2018 Document Reviewed: 05/31/2017 [employer] Patient Education 2020 [employer]. Follow Up Care 09/07/2022 16:30:50 With:WILLIS WESTBROOK, Harshad Min, URL Address: [address] [place] [phone] When: Unknown [facility] 09-07-2022 Hospital Discharge instructions Patient Education 09/07/2022 08:54:06 Prostate Cancer Screening Prostate Cancer Screening The prostate is a walnut-sized gland that is located below the bladder and in front of the rectum in males. The function of the prostate (prostate gland) is to add fluid to semen during ejaculation. Prostate cancer is the second most common type of cancer in men. A screening test for cancer is a test that is done before cancer symptoms start. Screening can help to identify cancer at an early stage, when the cancer can be treated more easily. The recommended prostate cancer screening test is a blood test called the prostate-specific antigen (PSA) test. PSA is a protein that is made in the prostate. As you age, your prostate naturally produces more PSA. Abnormally high PSA levels may be caused by: Prostate cancer. An enlarged prostate that is not caused by cancer (benign prostatic hyperplasia, BPH). This condition is very common in older men. A prostate gland infection (prostatitis). Medicines to assist with hair growth, such as finasteride. Depending on the PSA results, you may need more tests, such as: A physical exam to check the size of your prostate gland. Blood and imaging tests. A procedure to remove tissue samples from your prostate gland for testing (biopsy). Who should have screening? Screening recommendations vary based on age. If you are younger than age 40, screening is not recommended. If you are age 40 54 and you have no risk factors, screening is not recommended. If you are younger than age 55, ask your health care provider if you need screening if you have one of these risk factors: ?Being of -[place] Citizen descent. ?Having a family history of prostate cancer. If you are age 55 69, talk with your health care provider about your need for screening and how often screening should be done. If you are older than age 70, screening is not recommended. This is because the risks that screening can cause are greater than the benefits that it may provide (risks outweigh the benefits). If you are at high risk for prostate cancer, your health care provider may recommend that you have screenings more often or start screening at a younger age. You may be at high risk if you: Are older than age 55. Are -[place] Citizen. Have a father, brother, or uncle who has been diagnosed with prostate cancer. The risk may be higher if your family member's cancer occurred at an early age. What are the benefits of screening? There is a small chance that screening may lower your risk of dying from prostate cancer. The chance is small because prostate cancer is typically a slow-growing cancer, and most men with prostate cancer from a different cause. What are the risks of screening? The main risk of prostate cancer screening is diagnosing and treating prostate cancer that would never have caused any symptoms or problems (overdiagnosis and overtreatment). PSA screening cannot tell you if your PSA is high due to cancer or a different cause. A prostate biopsy is the only procedure to diagnose prostate cancer. Even the results of a biopsy may not tell you if your cancer needs to be treated. Slow-growing prostate cancer may not need any treatment other than monitoring, so diagnosing and treating it may cause unnecessary stress or other side effects. A prostate biopsy may also cause: Infection or fever. A false negative. This is a result that shows that you do not have prostate cancer when you actually do have prostate cancer. Questions to ask your health care provider When should I start prostate cancer screening? What is my risk for prostate cancer? How often do I need screening? What type of screening tests do I need? How do I get my test results? What do my results mean? Do I need treatment? Contact a health care provider if: You have difficulty urinating. You have pain when you urinate or ejaculate. You have blood in your urine or semen. You have pain in your back or in the area of your prostate. You have trouble getting or maintaining an erection (erectile dysfunction, ED). Summary Prostate cancer is a common type of cancer in men. The prostate (prostate gland) is located below the bladder and in front of the rectum. This gland adds fluid to semen during ejaculation. Prostate cancer screening may identify cancer at an early stage, when the cancer can be treated more easily. The prostate-specific antigen (PSA) test is the recommended screening test for prostate cancer. Discuss the risks and benefits of prostate cancer screening with your health care provider. If you are age 70 or older, screening is likely to lead to more risks than benefits (risks outweigh the benefits). This information is not intended to replace advice given to you by your health care provider. Make sure you discuss any questions you have with your health care provider. Document Released: 07/01/2018 Document Revised: 09/02/2018 Document Reviewed: 07/01/2018 [employer] Patient Education 2019 [employer]. Follow Up Care 08/25/2022 12:03:56 With:WILLIS WESTBROOK, Harshad Min, URL Address: [facility] [address], [place] [address]- When: Unknown [facility] 02-23-2022 Hospital Discharge instructions Patient Education 02/23/2022 08:38:37 Prostate Cancer Screening Prostate Cancer Screening The prostate is a walnut-sized gland that is located below the bladder and in front of the rectum in males. The function of the prostate (prostate gland) is to add fluid to semen during ejaculation. Prostate cancer is the second most common type of cancer in men. A screening test for cancer is a test that is done before cancer symptoms start. Screening can help to identify cancer at an early stage, when the cancer can be treated more easily. The recommended prostate cancer screening test is a blood test called the prostate-specific antigen (PSA) test. PSA is a protein that is made in the prostate. As you age, your prostate naturally produces more PSA. Abnormally high PSA levels may be caused by: Prostate cancer. An enlarged prostate that is not caused by cancer (benign prostatic hyperplasia, BPH). This condition is very common in older men. A prostate gland infection (prostatitis). Medicines to assist with hair growth, such as finasteride. Depending on the PSA results, you may need more tests, such as: A physical exam to check the size of your prostate gland. Blood and imaging tests. A procedure to remove tissue samples from your prostate gland for testing (biopsy). Who should have screening? Screening recommendations vary based on age. If you are younger than age 40, screening is not recommended. If you are age 40 54 and you have no risk factors, screening is not recommended. If you are younger than age 55, ask your health care provider if you need screening if you have one of these risk factors: ?Being of -[place] Citizen descent. ?Having a family history of prostate cancer. If you are age 55 69, talk with your health care provider about your need for screening and how often screening should be done. If you are older than age 70, screening is not recommended. This is because the risks that screening can cause are greater than the benefits that it may provide (risks outweigh the benefits). If you are at high risk for prostate cancer, your health care provider may recommend that you have screenings more often or start screening at a younger age. You may be at high risk if you: Are older than age 55. Are -[place] Citizen. Have a father, brother, or uncle who has been diagnosed with prostate cancer. The risk may be higher if your family member's cancer occurred at an early age. What are the benefits of screening? There is a small chance that screening may lower your risk of dying from prostate cancer. The chance is small because prostate cancer is typically a slow-growing cancer, and most men with prostate cancer from a different cause. What are the risks of screening? The main risk of prostate cancer screening is diagnosing and treating prostate cancer that would never have caused any symptoms or problems (overdiagnosis and overtreatment). PSA screening cannot tell you if your PSA is high due to cancer or a different cause. A prostate biopsy is the only procedure to diagnose prostate cancer. Even the results of a biopsy may not tell you if your cancer needs to be treated. Slow-growing prostate cancer may not need any treatment other than monitoring, so diagnosing and treating it may cause unnecessary stress or other side effects. A prostate biopsy may also cause: Infection or fever. A false negative. This is a result that shows that you do not have prostate cancer when you actually do have prostate cancer. Questions to ask your health care provider When should I start prostate cancer screening? What is my risk for prostate cancer? How often do I need screening? What type of screening tests do I need? How do I get my test results? What do my results mean? Do I need treatment? Contact a health care provider if: You have difficulty urinating. You have pain when you urinate or ejaculate. You have blood in your urine or semen. You have pain in your back or in the area of your prostate. You have trouble getting or maintaining an erection (erectile dysfunction, ED). Summary Prostate cancer is a common type of cancer in men. The prostate (prostate gland) is located below the bladder and in front of the rectum. This gland adds fluid to semen during ejaculation. Prostate cancer screening may identify cancer at an early stage, when the cancer can be treated more easily. The prostate-specific antigen (PSA) test is the recommended screening test for prostate cancer. Discuss the risks and benefits of prostate cancer screening with your health care provider. If you are age 70 or older, screening is likely to lead to more risks than benefits (risks outweigh the benefits). This information is not intended to replace advice given to you by your health care provider. Make sure you discuss any questions you have with your health care provider. Document Released: 07/01/2018 Document Revised: 09/02/2018 Document Reviewed: 07/01/2018 [employer] Patient Education 2020 [employer]. Follow Up Care 02/17/2021 16:44:14 With:WILLIS WESTBROOK, Harshad R, URL Address: [facility] [address] [place] [address]- When:02/23/2023 [facility] Evaluation + Plan note Future Appointments Appointment Date:03/08/2023 03:00:00 PM Scheduled Provider:Harshad JANE MD Location[facility] Appointment Type:URO Office Visit Diagnostic Tests PendingPSA Total 02/23/22 [facility] Evaluation + Plan note Future Appointments Appointment Date:10/02/2022 10:00:00 AM Scheduled Provider:Harshad JANE MD Location:[facility] Appointment Type:URO Office Visit Appointment Date:03/08/2023 03:00:00 PM Scheduled Provider:Harshad JANE MD Location:[facility] Appointment Type:URO Office Visit [facility] Evaluation + Plan note Future Appointments Appointment Date:03/08/2023 03:00:00 PM Scheduled Provider:Harshad JANE MD Location:[facility] Appointment Type:URO Office Visit [facility] Evaluation + Plan note Future Appointments Appointment Date:12/22/2022 12:00:00 PM Scheduled Provider: Location:[facility] Appointment Type:Surgery FT Appointment Date:03/08/2023 03:00:00 PM Scheduled Provider:Harshad JANE MD Location:[facility] Appointment Type:URO Office Visit [facility] Evaluation + Plan note Future Appointments Appointment Date:02/26/2023 08:15:00 AM Scheduled Provider:Aubrie Stauffer MD Location:[facility] Appointment Type:URO Office Visit Diagnostic Tests PendingPSA Total 12/30/22 [facility] Evaluation + Plan note Future Appointments Appointment Date:06/04/2023 08:00:00 AM Scheduled Provider:Aubrie Stauffer MD Location:[facility] Appointment Type:URO Office Visit Diagnostic Tests PendingPSA Total 02/26/23 [facility] Evaluation + Plan note Future Appointments Appointment Date:11/26/2023 08:00:00 AM Scheduled Provider:Aubrie Stauffer MD Location:[facility] Appointment Type:URO Office Visit Diagnostic Tests PendingPSA Total 06/04/23 [facility] Evaluation note No assessment inform ation available [facility] Work Phone: Evaluation note Diagnosis History of colon polyps- Primary [facility] No data available for this section [facility] Additional Instructions DISCHARGE INSTRUCTIONS FOR PROSTATE BIOPSY The following instructions must be followed very closely: -If you need pain pills, start before pain becomes intense. Antibiotics and pain pills are frequently less upsetting to your stomach if you take them wiht food such as crackers or bread. -If you are having excessive or persistent pain, swelling, bleeding, nausea, vomiting, or any other problems, you should first call your surgeon for advice. If you are unable to contact your surgeon, seek help from a hospital emergency room. If you were given drugs to make you drowsy and/or pain medication, follow these instructions: -You should spend the remainder of the day and evening resting. -You should not attempt to walk, including going to the bathroom, without assistance. You may be lightheaded from the medications you received. -Eat light today to avoid nausea. You should be able to return to your normal diet 24-36 hours after surgery. -For the next 24 hours you should not consume alcohol, attempt to drive, use any power tools, sign important documents or make important personal or business decisions After that, do so if you feel perfectly normal and alert. -Follow carefully any verbal or written instructions your surgeon may have given you. -Even though there are no visible incisions, multiple prostate biopsies have been taken through the rectum, and you need to follow some instructions to minimize the risks of bleeding. -You may see some blood in your urine and stool for up to 1 week (and blood in semen for several months). DIET -You may resume your normal diet, but you may want to start slowly and avoid alcohol, carbonated beverages, caffeine, and spicy food. -Drink plenty of water to keep the urine clear. ACTIVITY -You should limit any physical activity for 48 hours. -No heavy lifting and straining (10 pound limit). -No driving a car and limit long car rides for 2 days. -No strenuous exercise. -No sexual intercourse until this is discussed with your doctor. BOWELS -Try to keep your bowel movements soft to minimize straining to have a bowel movement. You may use a stool softener or over the counter laxative if needed. -Difficult bowel movements may lead to straining and bleeding from the prostate. MEDICATIONS -You may resume your home medications unless otherwise instructed. -[Hold aspirin, ibuprofen, Coumadin (warfarin), and other blood thinners for about two days or until there is no active bleeding unless otherwise instructed.] -Finish the antibiotics which you have already started. THINGS TO WATCH FOR WHICH WOULD REQUIRE AN EMERGENCY ROOM VISIT OR CALL 911 (This is not a complete list) -Persistent or heavy bleeding or blood clots from the rectum or urine. -Inability to urinate. -Fever over 101.5 degrees Fahrenheit, with or without chills. -Severe drug reactions with itching, hives, or rash. -Tenderness or swelling of the calves, chest pain, or shortness of breath. FOLLOW UP -Please call the office to arrange for your post-operative appointment in 1-2 weeks. [ ][facility] Work Phone: Hospital Discharge instructions No data available for this section [facility] filed[facility]ed in this encounter [facility] note No data available for this section [facility] Summary Purpose Family History No Family History Records Found Relationship Condition Age at Onset Recorded Date/T clare Not Specified Malignant neoplasm of uterus Unknown father Type 2 diabetes mellitus Unknown Cerebrovascular accident (CVA) Unknown sister Type 2 diabetes mellitus Unknown Renal failure Unknown Malignant neoplasm Unknown Advance Directives No Advanced Directives Records Found Advance Directive Response Recorded Date/ Time Advance Directives No August 3:00pm Advance Directive Response Recorded Date/ Time Advance Directives No August 4:00pm Chief Complaint and Reason for Visit Chief Complaint r97.20 Chief Complaint r97.20 Elevated PSA, Prostate Lesion Elevated PSA, Prostate Lesion Chief Complaint Z00.00 C61 I10 R73.0 9 Chief Complaint patient has orders Additional Source Comments (unrecognized sect ion and content) No Status Records FoundNo Status Records FoundNo Status Records FoundNo Status Records FoundNo Status Records FoundNo Status Records Found INFORMATION SOURCE (unrecogn ized section and content) DATE CREATED AUTHOR 02/21/2022 [facility] DATE CREATED AUTHOR AUTHOR'S ORGANIZ ATION 01/04/2023 [facility] DATE CREATED AUTHOR AUTHOR'S ORGANIZ ATION 02/12/2023 [facility] DATE CREATED AUTHOR AUTHOR'S ORGANIZ ATION 08/19/2023 [facility] DATE CREATED AUTHOR AUTHOR'S ORGANIZ ATION 11/21/2023 [facility] DATE CREATED AUTHOR AUTHOR'S ORGANIZ ATION 11/22/2023 [facility] Care Teams (unrecognized sec tion and content) Team Status: Inactive Member Role Status Dates Harshad Jane MD Attending Provider Active Leti Bullard MD Primary Care Provider Active Team Status: Active Member Role Status Dates Leti Bullard MD Primary Care Provider Active Team Status: Inactive Member Role Status Dates Leti Bullard MD Primary Care Provider Active Harshad Jane MD Attending Provider Active Team Status: Inactive Member Role Status Dates Leti Bullard MD Primary Care Provider, Attending Pro vider Active [employer] Equipment [employer] Relationship Specialty Start Date End Date [place] [address] [place] [address] PCP - General Family Medicine 09/29/18 Team Status: Inactive Member Role Status Dates Leti Bullard MD Primary Care Provider Active S tart: November 19, 2023 End: November 19, 2023 Aubrie Stauffer MD Attending Provider Active Start : November 19, 2023 End: November 19, 2023 Goals (unrecognized section and content) Goals may be documented in a n alternate section Reason for Visit (unrecogniz ed section and content) Reason Comments Colon Cancer Screening 5 year recall, [facility] colon 10/19/18 FOR RECORDS PERTAINING TO PATIENTS WHO ARE OR HAVE BEEN ENROLLED IN A CHEMICAL DEPENDENCY/SUBSTANCEABUSE PROGRAM, SOME INFORMATION MAY BE OMITTED. This clinical summary was aggregated from multiple sources. Caution should be exercised in using it in the provision of clinical care. This summary normalizes information from multiple sources, and as a consequence, information in this document may materially change the coding, format and clinical context of patient data. In addition, data may be omitted in some cases. CLINICAL DECISIONS SHOULD BE BASED ON THE PRIMARY CLINICAL RECORDS. [email or web address] provides no warranty or guarantee of the accuracy or completeness of information in this document.
[2023-11-24 08:34] VITALS: BP 161/89; PULSE 77; RESP 16; TEMP 36.2; O2SAT 98; BMI 23.3
[2023-11-24] MEDS: LACTATED RINGER'S SOLUTION 1,000 ML 50 ML IV (08:43)
--- NOTE | 2023-11-24 10:09 | PM.GSPRC ---
Date of procedure: 11/24/23 Indications for Procedure: history of colon polyps Pre-op diagnosis: history of colon polyps Procedure: colonoscopy with hot snare polyps rectum and sigmoid colon 5 mm Findings: colon polyp ?2 rectum and sigmoid colon Anesthesia: MAC Surgeon: Andrés Coyne Procedure Summary: PROCEDURE: The patient was taken to the Endoscopy Suite, placed in the left lateral recumbent position, given IV sedation as above. A rectal digital exam was performed. The sphincter tone was found to be normal. No rectal masses were appreciated. The Olympus video colonoscope was advanced under direct visualization to the rectum, sigmoid colon, descending colon, transverse colon and ascending colon to the ileocecal valve. The underside of the valve was seen. appendiceal lumen was visualized. The scope was slowly withdrawn with air being desufflated as it was withdrawn. No gross tumors or diverticula were seen.patient was found have a small polyp in the rectum which was snared and not retrieved and then another polyp was found in the sigmoid colon which was snared and retrieved. Hemostasis was maintained. Prep was good. The patient tolerated the procedure well and went to the Recovery Area in satisfactory condition. I recommend the patient return for surveillance colonoscopy in five years as long as polyps are benign. Estimated blood loss (mL): 0 Complications: No Condition: stable Disposition: PACU
[2023-11-24 10:55] VITALS: BP 102/72; PULSE 72; RESP 12; O2SAT 100
[2023-11-24 11:16] VITALS: BP 112/67; PULSE 68; RESP 14; O2SAT 97
== END 2023-11-24 11:32 | disposition home or self-care (01) ==
PROVIDERS: PCP Family Medicine; Visit Provider Surgery
PROC: (CPT 811; principal; 2023-11-24 09:20)
DX: D12.5 Benign neoplasm of sigmoid colon (principal); Z86.010 Personal history of colon polyps; Z85.46 Personal history of malignant neoplasm of prostate; Z90.79 Acquired absence of other genital organ(s)
CPT/HCPCS: 45385; 88305; J2250; J2704